=== PATIENT | male | born 1960 | race Caucasian/White ===

== ENCOUNTER → 2016-11-12 | Outpatient (CLI) | payer BC ==
[~2016-11-12] VITALS: Ht 177.8 cm; Wt 127.0 kg
[~2016-11-12] MED LIST: /CELE20CA; /TAMS4CA; ALL10TAB27 PO; ANEXIA; ASPI81TA85 PO; BABY81CH; CALC500T36 PO; CETI10TA; CVS20TAB PO; JANUMET; LIDOCAINE 2% INJ 100 MG/5 ML SDV (FOR ANES.) As Ordered ONE; MELO7.5T6 PO; NS 1,000 ML IV SCH; PROPOFOL 200 MG/20 ML VIAL As Ordered ONE; REMICAID; SIMV40TA2; TEST5GEL TOP; THERGRAN; VICO5TAB; VITA2000 PO; VITA250L PO; ZOCO20TA PO; ZYLO300T4 PO; cipro
--- NOTE | 2016-11-12 11:51 | ROOR ---
Patient Name: Hector Ruiz Procedure Date: 11/12/2016 11:38 AM Date of : 1960 Age: 56 Room: [facility] Gender: Male Note Status: Finalized Procedure: Upper GI endoscopy Indications: Heartburn Providers: Ronal Rosenberg MD Referring MD: Zoie Howard NP Requesting Provider: Medicines: Monitored Anesthesia Care Complications: No immediate complications. Procedure: Pre-Anesthesia Assessment: - The heart rate, respiratory rate, oxygen saturations, blood pressure, adequacy of pulmonary ventilation, and response to care were monitored throughout the procedure. The Endoscope was introduced through the mouth, and advanced to the second part of duodenum. The upper GI endoscopy was accomplished without difficulty. The patient tolerated the procedure well. Findings: The Z-line was regular and was found 45 cm from the incisors. Evidence of a gastric bypass was found. A gastric pouch with a medium size was found. The staple line appeared intact. The gastrojejunal anastomosis was characterized by healthy appearing mucosa. The exam was otherwise without abnormality. Impression: - Z-line regular, 45 cm from the incisors. - Gastric bypass with a medium-sized pouch and intact staple line. Gastrojejunal anastomosis characterized by healthy appearing mucosa. - The examination was otherwise normal. - No specimens collected. - The examination was otherwise normal. Recommendation: - Patient has a contact number available for emergencies. The signs and symptoms of potential delayed complications were discussed with the patient. Return to normal activities tomorrow. Written discharge instructions were provided to the patient. - Resume previous diet. - Discharge patient to home. - Continue present medications. - Return to referring physician. - The findings and recommendations were discussed with the patient's family. Ronal Rosenberg MD Ronal Rosenberg MD 11/12/2016 11:50:48 AM This report has been signed electronically. Number of Addenda: 0 Note Initiated On: 11/12/2016 11:38 AM Estimated Blood Loss: Estimated blood loss: none.
--- NOTE | 2016-11-12 12:05 | ROOR ---
Patient Name: Hector Ruiz Procedure Date: 11/12/2016 11:38 AM Date of : 1960 Age: 56 Room: [facility] Gender: Male Note Status: Finalized Procedure: Colonoscopy to Cecum Indications: High risk colon cancer surveillance: Personal history of colonic polyps, Last colonoscopy: 2013 Providers: Ronal Rosenberg MD Referring MD: Zoie Howard NP Requesting Provider: Medicines: Monitored Anesthesia Care Complications: No immediate complications. Procedure: Pre-Anesthesia Assessment: - The heart rate, respiratory rate, oxygen saturations, blood pressure, adequacy of pulmonary ventilation, and response to care were monitored throughout the procedure. The Colonoscope was introduced through the anus and advanced to the cecum, identified by appendiceal orifice and ileocecal valve. The colonoscopy was performed without difficulty. The patient tolerated the procedure well. The quality of the bowel preparation was good. Findings: The perianal and digital rectal examinations were normal. Non-bleeding internal hemorrhoids were found during retroflexion. The hemorrhoids were small and Grade I (internal hemorrhoids that do not prolapse). No other significant abnormalities were identified in a careful examination of the remainder of the colon. The exam was otherwise without abnormality on direct and retroflexion views. Impression: - Non-bleeding internal hemorrhoids. - The examination was otherwise normal on direct and retroflexion views. - No specimens collected. - The exam was otherwise normal to the cecum. Recommendation: - Discharge patient to home. - High fiber diet. - Continue present medications. - Return to referring physician. - Repeat colonoscopy in 5 years for surveillance. - The findings and recommendations were discussed with the patient's family. Ronal Rosenberg MD Roanl Rosenberg MD 11/12/2016 12:05:30 PM This report has been signed electronically. Number of Addenda: 0 Note Initiated On: 11/12/2016 11:38 AM Estimated Blood Loss: Estimated blood loss: none.
[2016-11-12 12:30] VITALS: BP 146/96
== END | disposition home or self-care (01) ==
LOC: M OPP 09:59
PROVIDERS: ATTEND Internal Medicine Gastroenterology
DX: Z12.11 Encounter for screening for malignant neoplasm of colon (principal); K64.0 First degree hemorrhoids; Z86.010 Personal history of colon polyps; R07.89 Other chest pain; R12 Heartburn; Z98.84 Bariatric surgery status; E78.5 Hyperlipidemia, unspecified; E11.9 Type 2 diabetes mellitus without complications; M19.90 Unspecified osteoarthritis, unspecified site; R06.83 Snoring; G47.30 Sleep apnea, unspecified; M45.9 Ankylosing spondylitis of unspecified sites in spine; Z91.048 Other nonmedicinal substance allergy status; Z87.891 Personal history of nicotine dependence; Z79.82 Long term (current) use of aspirin; Z79.899 Other long term (current) drug therapy
CPT/HCPCS: 43235; 99156; 99157; G0105

== ENCOUNTER 2017-01-05 05:24 | Emergency (ER) | payer BC ==
[~2017-01-05] VITALS: Ht 177.8 cm; Wt 139.7 kg
[~2017-01-05 05:24] MED LIST changes: -LIDOCAINE 2% INJ 100 MG/5 ML SDV (FOR ANES.) As Ordered ONE; -NS 1,000 ML IV SCH; -PROPOFOL 200 MG/20 ML VIAL As Ordered ONE
[2017-01-05] MEDS ORDERED: NS 1,000 ML IV ONE (06:15)
[2017-01-05] MEDS ORDERED: MORPHINE 4 MG/ML 1ML SYRINGE IV PRN (06:15)
[2017-01-05] MEDS ORDERED: ONDANSETRON 4MG/2ML VIAL (J2405) IV ONE (06:15)
[2017-01-05 06:21] LABS: BASO % 0.2 % (0.0-1.0); EOS # 0.1 K/mm3 (0.0-0.50); EOS % 1.7 % (0.0-3.0); LARGE UNSTAINED CELL # 0.2 K/mm3 (0.0-0.4); LARGE UNSTAINED CELL % 2.6 % (0.0-4.0); LYMPH # 2.6 K/mm3 (1.5-4.5); LYMPH % 30.4 % (24.0-44.0); MEAN CORPUSCULAR HEMOGLOBIN 33.6 pg (27.0-33.0); MEAN CORPUSCULAR HGB CONC 34.6 g/dl (32.0-36.5); MEAN CORPUSCULAR VOLUME 97.1 fl (80.0-96.0); MONO # 0.4 K/mm3 (0.0-0.8); MONO % 4.7 % (0.0-5.0); NEUTROPHILS # 5.2 K/mm3 (1.8-7.7); NEUTROPHILS % 60.4 % (36.0-66.0); PLATELET COUNT, AUTOMATED 188 k/mm3 (150-450); RED CELL DISTRIBUTION WIDTH 12.3 % (11.5-14.5); WHITE BLOOD COUNT 8.5 K/mm3 (4.0-10.0)
[2017-01-05] MEDS ORDERED: KETOROLAC 30 MG/ML VIAL (J1885) IV ONE (06:30)
[2017-01-05 06:36] LABS: ALBUMIN 4.2 GM/DL (3.2-5.2); ALBUMIN/GLOBULIN RATIO 1.24 (1.00-1.93); BILIRUBIN,DIRECT 0.4 MG/DL (0.0-0.2); BILIRUBIN,TOTAL 1.5 MG/DL (0.2-1.0); CALCIUM LEVEL 9.3 MG/DL (8.5-10.1); CREATININE FOR GFR 1.59 MG/DL (0.70-1.30); GLOMERULAR FILTRATION RATE 48.5 (>56); POTASSIUM SERUM 4.7 MEQ/L (3.5-5.1); TOTAL PROTEIN 7.6 GM/DL (6.4-8.2)
--- NOTE | 2017-01-05 07:00 | REPUSA ---
CLINICAL HISTORY: Abdominal pain. TECHNIQUE: Multiple axial, sagittal and coronal CT images were obtained through the abdomen and pelvi s without administration of oral or IV contrast material. COMMENTS: The liver is moderately enlarged with decreased attenuation without mass or defect. There is no intra or extrahepatic biliary ductal dilatation. The spleen is normal. The gallbladder is within normal li mits. The pancreas is of normal contour and attenuation characteristics. There is no evidence of adre nal mass. 4.2 mm obstructing stone of the most distal aspect of the distal third of the right ureter. Mild righ t hydroureteronephrosis. No renal or left ureteral calculi are identified. There is no left hydroureter or hydronephrosis. There is no evidence for appendicitis. There is no bowel wall thickening. No evidence for small or la rge bowel obstruction. There is no evidence of abdominal ascites or lymphadenopathy. There is no evidence of intrinsic or extrinsic bladder mass. There is no pelvic ascites or lymphadeno luz marina. Changes from prior gastric bypass surgery. Moderate large bowel fecal stasis. Mild prostatomegaly. Images of the lung bases show no evidence of pleural or parenchymal mass. There are no pleural effusi ons. The bony structures are free of lytic or blastic lesions. Multilevel degenerative changes are seen in volving the thoracolumbar spine. Scattered calcifications are seen involving the aorta and major branches compatible with atherosclero sis. Bilateral fat containing inguinal hernias without incarceration. IMPRESSION: Obstructing stone of the distal right ureter. Large bowel fecal stasis. Hepatomegaly with fatty liver infiltration. Gastric bypass surgery. Thank you for your kind referral of this patient.
[2017-01-05] MEDS ORDERED: DULC5TAB PO (07:25)
[2017-01-05] MEDS ORDERED: FLOM5CAP PO (07:25)
[2017-01-05] MEDS ORDERED: PERC5TAB6 PO (07:25)
[2017-01-05 07:33] VITALS: BP 175/81
== END 2017-01-05 07:35 | disposition home or self-care (01) ==
LOC: M ED 07:30
DX: N20.1 Calculus of ureter (principal); K59.00 Constipation, unspecified; E11.9 Type 2 diabetes mellitus without complications; E66.9 Obesity, unspecified; Z98.84 Bariatric surgery status; Z87.442 Personal history of urinary calculi; Z87.891 Personal history of nicotine dependence; Z91.09 Other allergy status, other than to drugs and biological substances; Z79.899 Other long term (current) drug therapy; Z79.82 Long term (current) use of aspirin
CPT/HCPCS: 74176; 80048; 80076; 81001; 83690; 85025; 87086; 96374; 96375; 99283; J1885; J2405

== ENCOUNTER 2017-01-09 08:13 | Emergency (ER) | payer BC ==
[~2017-01-09] VITALS: Ht 177.8 cm; Wt 139.3 kg
[~2017-01-09 08:13] MED LIST changes: +DULC5TAB PO; +FLOM5CAP PO; +PERC5TAB6 PO
[2017-01-09] MEDS ORDERED: ONDANSETRON 4MG/2ML VIAL (J2405) IV ONE (08:45)
[2017-01-09] MEDS ORDERED: MORPHINE 2 MG/ML 1ML SYRINGE IV ONE (08:45)
[2017-01-09] MEDS ORDERED: KETOROLAC 30 MG/ML VIAL (J1885) IV ONE (08:45)
[2017-01-09] MEDS ORDERED: TAMSULOSIN 0.4 MG CAP PO ONE (08:45)
[2017-01-09 09:43] VITALS: BP 173/82
[2017-01-09] MEDS ORDERED: INDO25CA PO (09:44)
--- NOTE | 2017-01-09 10:43 | REP ---
URINARY TRACT SONOGRAPHY: HISTORY: Right flank pain, history stone, please assess hydronephrosis. Comparison CT study 01/05/2017. CT study showed a right distal ureteral calculus with mild right-sided hydronephrosis. SONOGRAPHIC FINDINGS: Scanning at the level of the urine-filled bladder shows no bladder wall mass. Emptying ureteral jets could not be confirmed on either side with color Doppler interrogation of the bladder lumen. This may relate to hydration state. Prostate appears prominent measuring 3.9 x 5.2 x 3.4 cm. Renal cortical echogenicity pattern is normal and contours are smooth on both sides. The right kidney dimensions are 13.7 x 6.3 x 6.1 cm. Left kidney measures 12.6 x 5.7 x 5.4 cm. There is no evidence of hydronephrosis on the left. No cyst, mass, or renal calculus is seen on either side. On the right, there is localized mild separation of central renal sinus echoes in the upper pole of the right kidney consistent with focal intrarenal dilation of the infundibulum and calyceal system. This is improved when compared with the CT study which shows mild hydronephrosis of the entire collecting system and renal pelvis. No other abnormality. IMPRESSION: There is minimal intrarenal separation of upper pole renal sinus echoes, consistent with improvement in the previously noted right-sided hydronephrosis. No stones seen. Left kidney remains unremarkable. Signed by Parish Brown MD 01/09/2017 01:39 P
== END 2017-01-09 09:57 | disposition home or self-care (01) ==
LOC: M ED 09:13
DX: N20.1 Calculus of ureter (principal); E11.9 Type 2 diabetes mellitus without complications; M45.9 Ankylosing spondylitis of unspecified sites in spine; Z91.09 Other allergy status, other than to drugs and biological substances; Z79.899 Other long term (current) drug therapy
CPT/HCPCS: 76775; 96374; 96375; 99283; J1885; J2405

== ENCOUNTER → 2017-01-17 | Outpatient (REF) | payer BC ==
[~2017-01-17] MED LIST changes: +INDO25CA PO
== END ==
LOC: M SMT 13:12
PROVIDERS: ATTEND Nurse Practitioner Family
DX: N20.0 Calculus of kidney (principal)

== ENCOUNTER → 2017-03-06 | Outpatient (REF) | payer BC ==
[2017-03-06 13:13] LABS: IONIZED CALCIUM 4.7 MG/DL (4.5-5.3)
[2017-03-06 13:36] LABS: ANION GAP 4 MEQ/L (8-16); BLOOD UREA NITROGEN 19 MG/DL (7-18); CALCIUM LEVEL 8.9 MG/DL (8.5-10.1); CARBON DIOXIDE LEVEL 30 MEQ/L (21-32); CHLORIDE LEVEL 103 MEQ/L (98-107); CREATININE FOR GFR 1.02 MG/DL (0.70-1.30); GLOMERULAR FILTRATION RATE > 60.0 (>56); GLUCOSE, FASTING 170 MG/DL (70-105); MAGNESIUM LEVEL 2.1 MG/DL (1.8-2.4); PHOSPHORUS LEVEL 2.6 MG/DL (2.5-4.9); POTASSIUM SERUM 4.5 MEQ/L (3.5-5.1); SODIUM LEVEL 137 MEQ/L (136-145); URIC ACID 3.8 MG/DL (3.5-7.2)
== END ==
LOC: M LABSMT 09:51
PROVIDERS: ATTEND Nurse Practitioner Family
DX: N20.0 Calculus of kidney (principal)

== ENCOUNTER → 2017-07-01 | Outpatient (REF) | payer BC ==
[~2017-07-01] MED LIST changes: +ANDR1.62 TD; +CALC250T PO; +CIPRODEX AD; +DOXY-278 PO; +INFL10VL IV; +LEVO500T3 PO; +LISI10TA4 PO; -MELO7.5T6 PO; +MELO7.5T7 PO; +PERC5TAB12 PO; -PERC5TAB6 PO; -THERGRAN; +THERGRAN PO
== END ==
LOC: M LAB REF 12:57
PROVIDERS: ATTEND Nurse Practitioner Adult Health
DX: E29.1 Testicular hypofunction (principal)

== ENCOUNTER → 2017-07-08 | Outpatient (REF) | payer BC | LOC: M LAB REF 12:52 | PROVIDERS: ATTEND Nurse Practitioner Family | DX: L03.211 Cellulitis of face (principal) ==

== ENCOUNTER 2017-07-10 09:20 | Inpatient (IN) | payer BC ==
[~2017-07-10] VITALS: Ht 177.8 cm; Wt 142.8 kg
[~2017-07-10 09:20] MED LIST changes: -ANDR1.62 TD; -CALC250T PO; -CIPRODEX AD; -DOXY-278 PO; -INFL10VL IV; -LEVO500T3 PO; -LISI10TA4 PO
[2017-07-10] MEDS ORDERED: LISI10TA4 PO (09:44)
[2017-07-10 10:50] LABS: BASO % 0.4 % (0.0-1.0); EOS # 0.1 10^3/uL (0.0-0.50); EOS % 1.3 % (0.0-3.0); IMMATURE GRANULOCYTE % 0.4 % (0-0); LYMPH # 2.2 10^3/uL (1.5-4.5); LYMPH % 26.1 % (24.0-44.0); MEAN CORPUSCULAR HEMOGLOBIN 33.1 pg (27.0-33.0); MEAN CORPUSCULAR HGB CONC 35.6 g/dl (32.0-36.5); MONO # 1.2 10^3/uL (0.0-0.8); MONO % 14.7 % (0.0-5.0); NEUTROPHILS # 4.7 10^3/uL (1.8-7.7); NEUTROPHILS % 57.1 % (36.0-66.0); PLATELET COUNT, AUTOMATED 162 10^3/uL (150-450); RED CELL DISTRIBUTION WIDTH 11.9 % (11.5-14.5); WHITE BLOOD COUNT 8.3 10^3/uL (4.0-10.0)
[2017-07-10 11:11] LABS: ANION GAP 5 MEQ/L (8-16); BLOOD UREA NITROGEN 19 MG/DL (7-18); CALCIUM LEVEL 8.8 MG/DL (8.5-10.1); CARBON DIOXIDE LEVEL 31 MEQ/L (21-32); CHLORIDE LEVEL 102 MEQ/L (98-107); CREATININE FOR GFR 1.11 MG/DL (0.70-1.30); GLOMERULAR FILTRATION RATE > 60.0 (>56); GLUCOSE, FASTING 103 MG/DL (70-105); POTASSIUM SERUM 4.3 MEQ/L (3.5-5.1); SODIUM LEVEL 138 MEQ/L (136-145)
[2017-07-10] MEDS ORDERED: ISOVUE-370 76% 100ML VIAL (Q9967) As Ordered ONE (11:41)
--- NOTE | 2017-07-10 12:23 | REP ---
CT NECK WITH CONTRAST: HISTORY: Right parotiditis. CONTRAST: Isovue 370, 75 mL. A BB was placed on the right side of the head at the level of the temporal bone. The naso-, frida-, and hypopharynx, larynx and subglottic trachea are normal in appearance. The salivary and thyroid glands are normal in size and density. Small lymph nodes less than 1 cm in size are present in the internal jugular chains, posterior triangles submandibular and submental areas. There is enlargement of the right pinna. The right pinna is heterogeneous in density. There is extension of the pinna enlargement into the distal right external auditory canal. Stranding is present in the overlying subcutaneous tissue. There is thickening of the right platysma muscle. These findings are consistent with edema. There is no abscess. Atherosclerotic calcification is present at the right carotid bifurcation. A minimal degree of degenerative change is present in the cervical spine. The lung apices are clear. The sinuses and mastoid air cells are clear. IMPRESSION: There is enlargement of the right pinna consistent with cellulitis. Signed by Jake Ernandez MD 07/10/2017 12:26 P
[2017-07-10] MEDS ORDERED: INFL10VL IV (13:16)
[2017-07-10] MEDS ORDERED: ANDR1.62 TD (13:21)
[2017-07-10] MEDS ORDERED: CALC250T PO (13:21)
[2017-07-10] MEDS ORDERED: ONDANSETRON 4MG/2ML VIAL (J2405) IV PRN (13:30)
[2017-07-10] MEDS ORDERED: PERCOCET 5MG/325MG TAB PO PRN (13:30)
[2017-07-10] MEDS ORDERED: ACETAMINOPHEN TAB 650MG DOSE (2X325MG) PO PRN (13:30)
--- NOTE | 2017-07-10 14:01 | HPEPDOC ---
[facility] Medical History & Physical Date of Admission Jul 10, 2017 History and Physical PRIMARY CARE PROVIDER: Dr. Ortiz ATTENDING: Dr. Gayathri Velásquez CHIEF COMPLAINT: Ear/neck pain HISTORY OF PRESENT ILLNESS: This is a 57-year-old male past history ankylosing spondylitis on Remicade for the past 15 years, gastric bypass, hypertension, hyperlipidemia, GERD who presents with right ear and neck pain. Patient states he started to have right neck pain on Saturday, went to his primary care physician on Saturday, prescribed Keflex which she took for 1 day, as directed he went to the urgent care center as he did not have any significant improvements then prescribed clindamycin for which she's on the second day now. Patient states his external ear is now swollen and painful. He has no changes in his hearing, swallowing, eating. Patient denies any trauma to the ER neck. Patient notes that there was a blister with clear fluid at the distal region of his pinna, which was sent for culture by his primary care physician today. He does note fevers at home with a MAXIMUM TEMPERATURE of 101. No chills. No chest pain/shortness of breath/palpitations. No nausea/vomiting/abdominal pain. No diarrhea. No rashes. PAST MEDICAL HISTORY: As per HPI PAST SURGICAL HISTORY: Gastric bypass, tonsillectomy SOCIAL HISTORY: History of tobacco abuse quit years ago. Occasional alcohol. 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 No illicit drugs. FAMILY HISTORY: Brother and nephew with Crohn's disease ALLERGIES: Please see below. REVIEW OF SYSTEMS: HEENT: Denies sore throat/headache. Has right ear and right neck pain CARDIOVASCULAR: Denies chest pain/palpitations RESPIRATORY: Denies shortness of breath/cough GASTROINTESTINAL: denies nausea/vomiting GENITOURINARY: Denies dysuria/urinary urgency. MUSCULOSKELETAL: Denies myalgias/arthralgias NEUROLOGICAL: Denies any focal weakness HOME MEDICATIONS: Please see below. PHYSICAL EXAMINATION: Vitals: (see below) General: No acute distress, laying comfortably in bed. HEENT: Moist mucous membranes. Swelling and tenderness of the pinna, with prior blister that's the distal end of the pinna. Neck: No JVD. Right cervical lymphadenopathy, tender. No abscess. No induration. Cardiac: RRR, No murmurs Pulm: Clear to auscultation b/l. No wheezing, rhonchi Abd: NT/ND + BS. Obese Ext: No edema or cyanosis. LABORATORY DATA: See below. IMAGING: CT neck on 07/10/17 A BB was placed on the right side of the head at the level of the temporal bone. The naso-, frida-, and hypopharynx, larynx and subglottic trachea are normal in appearance. The salivary and thyroid glands are normal in size and density. Small lymph nodes less than 1 cm in size are present in the internal jugular chains, posterior triangles submandibular and submental areas. There is enlargement of the right pinna. The right pinna is heterogeneous in density. There is extension of the pinna enlargement into the distal right external auditory canal. Stranding is present in the overlying subcutaneous tissue. There is thickening of the right platysma muscle. These findings are consistent with edema. There is no abscess. Atherosclerotic calcification is present at the right carotid bifurcation. A minimal degree of degenerative change is present in the cervical spine. The lung apices are clear. The sinuses and mastoid air cells are clear. IMPRESSION: There is enlargement of the right pinna consistent with cellulitis. MICROBIOLOGY: Please see below. ASSESSMENT/PLAN: 1. Cellulitis of the right pinna, with lymphadenopathy- has been progressive since Saturday. Status post Bactrim and clindamycin. He does have a high risk of pseudomonas infection given his immunocompromised state. Has fevers at home. Afebrile in the ED. No leukocytosis. We'll trend CRP/ESR. ED to contact ENT. Started on Zosyn/vanco. Blood culture sent. Consider ID infectious disease consult if no improvement by tomorrow. 2. Ankylosing spondylitis- we'll hold Remicade for now. 3. History of hypertension- continue lisinopril 4. History of GERD- on PPI 5. History of hyperlipidemia- on statin Due to prophylaxis- enoxaparin Patient will follow-up by Dr. Gayathri Velásquez starting 07/11/17 at 7am. Vital Signs Vital Signs Date Time Temp Pulse Resp B/P (MAP) Pulse Ox O2 Delivery O2 Flow Rate FiO2 07/10/17 10:52 07/10/17 09:20 97.0 63 16 96 Room Air Laboratory Data Labs 24H Laboratory Tests 2 07/10/17 10:29: Anion Gap 5L, Glomerular Filtration Rate > 60.0, Blood Urea Nitrogen 19H, Creatinine 1.11, Sodium Level 138, Potassium Level 4.3, Chloride Level 102, Carbon Dioxide Level 31, Calcium Level 8.8 07/10/17 10:44: Immature Granulocyte % (Auto) 0.4H, White Blood Count 8.3, Red Blood Count 4.89 , Hemoglobin 16.2, Hematocrit 45.5, Mean Corpuscular Volume 93.0, Mean Corpuscular Hemoglobin 33.1H, Mean Corpuscular Hemoglobin Concent 35.6, Red Cell Distribution Width 11.9, Platelet Count 162, Neutrophils (%) (Auto) 57.1, Lymphocytes (%) (Auto) 26.1, Monocytes (%) (Auto) 14.7H, Eosinophils (%) (Auto) 1.3, Basophils (%) (Auto) 0.4, Neutrophils # (Auto) 4.7, Lymphocytes # (Auto) 2.2, Monocytes # (Auto) 1.2H, Eosinophils # (Auto) 0.1, Basophils # (Auto) 0.0, Immature Granulocyte # (Auto) 0.0, Nucleated Red Blood Cells % (auto) 0.0 CBC/BMP Laboratory Tests 07/10/17 10:29 Calcium Level 8.8 07/10/17 10:44 Red Blood Count 4.89, Mean Corpuscular Volume 93.0, Mean Corpuscular Hemoglobin 33.1 H, Mean Corpuscular Hemoglobin Concent 35.6, Red Cell Distribution Width 11.9, Neutrophils (%) (Auto) 57.1, Lymphocytes (%) (Auto) 26.1, Monocytes (%) ( Auto) 14.7 H, Eosinophils (%) (Auto) 1.3, Basophils (%) (Auto) 0.4, Neutrophils # (Auto) 4.7, Lymphocytes # (Auto) 2.2, Monocytes # (Auto) 1.2 H, Eosinophils # (Auto) 0.1, Basophils # (Auto) 0.0 Microbiology Microbiology 07/10/17 Blood Culture, Received Pending 07/10/17 Blood Culture, Received Pending Home Medications Scheduled (Androgel Pump) 1.62 % Gel, 2 DOSE TD DAILY 1 PUMP APPLIED TO EACH SHOULDER Aspirin (Aspir-81) 81 Mg Tab, 81 MG PO DAILY Calcium Citrate (Calcium Citrate) 250 Mg Tab, 500 MG PO TID Cetirizine HCl (All Day Allergy) 10 Mg Tab, 10 MG PO DAILY Cholecalciferol (Vitamin D3) 2,000 Unit Cap, 2,000 UNIT PO DAILY Cyanocobalamin (Vitamin B 12) 250 Mcg Aneta, 500 MCG PO DAILY Infliximab Injection (Remicade) Unknown Strength Vial, Unknown Dose IV ASDIRECTED EVERY 8 WEEKS Lisinopril (Lisinopril) 10 Mg Tab, 10 MG PO DAILY Meloxicam (Meloxicam) 7.5 Mg Tab, 7.5 MG PO BID Multivitamins (Theragran) 1 Tab Tab, 1 TAB PO BID Omeprazole (Cvs Omeprazole) 20 Mg Tab, 20 MG PO DAILY Simvastatin (Zocor) 20 Mg Tab, 20 MG PO QHS Allergies Coded Allergies: Nickel (Verified Allergy, Intermediate, RASH, 12/25/12) TAPE (Verified Allergy, Unknown, 01/09/17) IRASEMA FLORES MD Jul 10, 2017 14:00
[2017-07-10 15:10] VITALS: BP 143/72
[2017-07-10] MEDS: ENOXAPARIN 40 MG/0.4 ML SYRINGE (J1650) SC SCH (15:31)
[2017-07-10] MEDS: PIPERACILLIN/TAZOBACTAM SOD 3.375 GM in D5W 50 ML IV SCH ×2 (15:31→19:58)
[2017-07-10] MEDS ORDERED: VANCOMYCIN HCL 1,000 MG, VIAL MATE ADAPTER 1 EACH in D5W 250 ML IV ONE (16:00)
[2017-07-10 20:00] VITALS: BP 153/75
--- NOTE | 2017-07-10 20:31 | PHACANCOPD ---
PHARMACY VANCOMYCIN DOSING Pt Demographics Demographics Patient Age:57 , Weight:140.910 , Gender: male Adjusted Body Weight Date: 07/10/17, Adjusted Body Weight: [100] Kg Events Past 24 Hours Events Past 24 Hours: NO: Dialysis, Diuretic Therapy, Change in CrCl, Fever, Elevation in WBC, Pending Diagnostics, Pending Procedures, Other Vancomycin Vancomycin indication: cellulitis right pinna/neck Vancomycin Target Ranges: 15-20 mcg/ml Vancomycin Load Y/N: Yes Load Dose Date Time Vancomycin Load Dose: 1000mg Date: 07/10 Time: 17:00, 21:00 Vancomycin Dose Date: 07/10/17. Current Vancomycin Dose: [1g IV q8h @21] Intermittent Dosing?: No Labs Labs Item Value Date Time White Blood Count 8.3 10^3/uL 07/10/17 1044 Erythrocyte Sedimentation Rate 31 mm/hr H 07/10/17 1431 Creatinine 1.11 MG/DL 07/10/17 1029 C-Reactive Protein, Quantitative 4.11 MG/DL H 07/10/17 1029 Micro Microbiology 07/10/17 Blood Culture, Received Pending 07/10/17 Blood Culture, Received Pending Creatinine Clearance Date:07/10/17. Creatinine Clearance: [>100 ml/min using adjusted BW]. Pending Labs Vanco trough scheduled 07/12 @04:00 Assessment and Plan Maintaining Current Dose?: Yes Reason for dose change: No Dose Change Pharmacist Note Pharmacist Note Date: 07/10/17. Pharmacist note: pt has been admitted for cellulitis of the right pinna/neck area and has been started on Zosyn and Vanco. ENT has been consulted. Of note, pt is also on remicade. His SCr appears to be at baseline, his micro culture history is unremarkable and he has not been on vancomycin at our facility in the past. I have started him on vancomycin 1g this evening followed by 1g IV q8h 4 hours later. I have a vanco trough scheduled before the 5th dose. We will continue to monitor and make adjustments as necessary. Leandro Yu Pharm.D. Jul 10, 2017 20:31
[2017-07-10] MEDS: SIMVASTATIN 20 MG TAB PO SCH (21:06)
[2017-07-10] MEDS: MELOXICAM (MOBIC) 7.5 MG TAB PO SCH (21:06)
[2017-07-10] MEDS: CIPRODEX OTIC SUSP 7.5ML AD SCH (21:06)
[2017-07-10] MEDS: VANCOMYCIN HCL 1,000 MG, VIAL MATE ADAPTER 1 EACH in D5W 250 ML IV SCH (21:06)
[2017-07-11] VITALS: BP 150/65
[2017-07-11] MEDS: PIPERACILLIN/TAZOBACTAM SOD 3.375 GM in D5W 50 ML IV SCH ×4 (01:55→19:54)
[2017-07-11 04:00] VITALS: BP 113/85
[2017-07-11] MEDS: VANCOMYCIN HCL 1,000 MG, VIAL MATE ADAPTER 1 EACH in D5W 250 ML IV SCH ×3 (04:53→21:06)
[2017-07-11 07:17] LABS: BASO % 0.3 % (0.0-1.0); EOS # 0.2 10^3/uL (0.0-0.50); EOS % 3.4 % (0.0-3.0); IMMATURE GRANULOCYTE % 0.5 % (0-0); LYMPH # 2.2 10^3/uL (1.5-4.5); LYMPH % 36.7 % (24.0-44.0); MEAN CORPUSCULAR HGB CONC 34.7 g/dl (32.0-36.5); MEAN CORPUSCULAR VOLUME 95.1 fl (80.0-96.0); MONO # 0.8 10^3/uL (0.0-0.8); MONO % 13.9 % (0.0-5.0); NEUTROPHILS # 2.7 10^3/uL (1.8-7.7); NEUTROPHILS % 45.2 % (36.0-66.0); PLATELET COUNT, AUTOMATED 163 10^3/uL (150-450); WHITE BLOOD COUNT 5.9 10^3/uL (4.0-10.0)
[2017-07-11 07:37] LABS: ANION GAP 5 MEQ/L (8-16); BLOOD UREA NITROGEN 19 MG/DL (7-18); CARBON DIOXIDE LEVEL 29 MEQ/L (21-32); CHLORIDE LEVEL 106 MEQ/L (98-107); CREATININE FOR GFR 1.11 MG/DL (0.70-1.30); GLOMERULAR FILTRATION RATE > 60.0 (>56); GLUCOSE, FASTING 158 MG/DL (70-105); POTASSIUM SERUM 4.5 MEQ/L (3.5-5.1); SODIUM LEVEL 140 MEQ/L (136-145)
[2017-07-11 08:00] VITALS: BP 145/80
[2017-07-11 08:12] LABS: ERYTHROCYTE SEDIMENTATION RATE 29 mm/hr (0-20)
[2017-07-11] MEDS: OMEPRAZOLE 20 MG CAP PO SCH (08:40)
[2017-07-11] MEDS: VITAMIN D 1,000 INTERNATIONAL UNITS TABLET PO SCH (08:40)
[2017-07-11] MEDS: MELOXICAM (MOBIC) 7.5 MG TAB PO SCH ×2 (08:40→21:07)
[2017-07-11] MEDS: CETIRIZINE (ZyrTEC) 10 MG TAB PO SCH (08:40)
[2017-07-11] MEDS: ENOXAPARIN 40 MG/0.4 ML SYRINGE (J1650) SC SCH (08:41)
[2017-07-11] MEDS: LISINOPRIL 10 MG TAB PO SCH (08:41)
[2017-07-11] MEDS: ASPIRIN 81 MG ENTERIC TAB PO SCH (08:41)
[2017-07-11] MEDS: CIPRODEX OTIC SUSP 7.5ML AD SCH ×2 (08:42→21:07)
[2017-07-11] MEDS: CYANOCOBALAMIN 250 MCG TABLET PO SCH (09:25)
[2017-07-11 12:00] VITALS: BP 138/78
--- NOTE | 2017-07-11 13:27 | IPN ---
DATE OF EXAM: 07/11/2017 SUBJECTIVE: The patient tells me that he had been on Remicade for the past 15 years and he admitting to having pain on the right side of his ear and his neck. He saw his primary care physician on Saturday, prescribed Keflex, taken for 1 day but went to urgent care since he did not have any improvement. They prescribed clindamycin, which he was on 2 days, however the swelling began to worsen to the point where he presented to the hospital. The patient tells me that this morning with the antibiotics he is receiving in the emergency room he is noticing significant improvement in his symptoms. He tells me that it appears to be less red and less swollen. He denies fever, chills, nausea, vomiting or diarrhea. OBJECTIVE: VITAL SIGNS: Temperature 97.5, pulse 64, respiratory rate 18, blood pressure (BP) 145/80, oxygen saturation 94% on room air. GENERAL: He is an morbidly obese man sitting up in bed. He does not appear to be in acute distress. HEENT: He has a large neck. He is somewhat disheveled. He has right ear pinna that is grossly erythematous, visibly swollen and tender. There appears to be some superficial crusting. No obvious discharge. Examination of his external auditory canal does reveal some swelling. However, no abnormalities in the ear drum. He does have some mild cervical lymphadenopathy associated on the right. No stridor. No neck masses. Trachea is midline. Good air movement. CARDIOVASCULAR EXAM: S1, S2, regular. RESPIRATORY EXAM: Is clear. ABDOMINAL EXAM: Is grossly obese. EXTREMITIES: No clubbing, cyanosis or edema. LABORATORY STUDIES: WBC 5.9, hemoglobin 14.8, platelet count 153. ESR 29. Chemistry panel: Sodium 140, potassium 4.5, chloride 106, bicarbonate 29, BUN 19, creatinine 1.1. CRP 2.9, MICROBIOLOGY: Blood cultures are negative thus far. The patient did have a CT scan of the neck, which revealed enlarged right panni consistent with cellulitis. ASSESSMENT AND PLAN: 1. This is a 57-year-old man with cellulitis. He remains on empiric antibiotics with vancomycin and Zosyn. I will check MRSA screen of the nares and hopefully we can be able to a narrow spectrum. He has been seen by ENT, although I do not have a note available at this time. He has been started on ciprofloxacin otic drops. He is having some improvement in his symptoms. However, it has been less than 24 hours of his antibiotic regimen. I will watch him for an additional 24 hours to see if it is improving, which I believe it is. He is on Tylenol as needed. He has not had any fevers or leukocytosis. He does not appear to be grossly septic. 2. Ankylosing spondylitis. We will hold off Remicade. Otherwise, he is at his functional baseline. The patient is on Mobic. 3. Seasonal allergies. Continue with Zyrtec. 4. B12 deficiency. Continue with supplementation. 5. Hypertension. Continue with lisinopril. His blood pressure is controlled. 6. Gastroesophageal reflux disease. Continue with omeprazole. 7. Dyslipidemia. The patient is on Zocor. 8. Deep venous thrombosis (DVT) prophylaxis. The patient is on Lovenox. DISPOSITION: Pending improvement, he may be stable for discharge within the next 24-48 hours. Await recommendations from ENT. ZACH
[2017-07-11 16:00] VITALS: BP 138/60
[2017-07-11] MEDS: SIMVASTATIN 20 MG TAB PO SCH (21:07)
[2017-07-11 22:00] VITALS: BP 132/67
[2017-07-12] MEDS: PIPERACILLIN/TAZOBACTAM SOD 3.375 GM in D5W 50 ML IV SCH ×2 (01:55→08:44)
[2017-07-12 02:00] VITALS: BP 118/57
[2017-07-12] MEDS: VANCOMYCIN HCL 1,000 MG, VIAL MATE ADAPTER 1 EACH in D5W 250 ML IV SCH (04:50)
--- NOTE | 2017-07-12 05:07 | PHACANCOPD ---
PHARMACY VANCOMYCIN DOSING Pt Demographics Demographics Patient Age:57 , Weight:140.910 , Gender: male Adjusted Body Weight Date: 07/10/17, Adjusted Body Weight: [100] Kg Vancomycin Vancomycin indication: cellulitis right pinna/neck Vancomycin Target Ranges: 15-20 mcg/ml Vancomycin Load Y/N: Yes Load Dose Date Time Vancomycin Load Dose: 1000mg Date: 07/10 Time: 17:00, 21:00 Vancomycin Dose Date: 07/10/17. Current Vancomycin Dose: [1g IV q8h @21] Intermittent Dosing?: No Labs Micro Microbiology 07/10/17 Blood Culture - Preliminary, Resulted No growth after 24 hours . All specim... 07/10/17 Blood Culture - Preliminary, Resulted No growth after 24 hours . All specim... 07/11/17 MRSA Screen, Received Pending Creatinine Clearance Date:07/10/17. Creatinine Clearance: [>100 ml/min using adjusted BW]. Pending Labs Vanco trough scheduled 07/12 @04:00 =REPORTED 13.2 Assessment and Plan Maintaining Current Dose?: Yes Reason for dose change: No Dose Change Pharmacist Note Pharmacist Note Date: 07/12/17. Pharmacist note:vANCOMYCIN [id number] TODAY REPORTED 13.2.PATIENT CONTINUES ON PIP/TAZO 3.375 GM IV Q6H WELL VANCOMYCIN 1 GRAM IV Q8H.PATIENT CRCL=CALCULATED 106.5(SCR NOT YET POSTED FOR TODAY.-WILL CONTINUE TO FOLLOW Date: 07/10/17. Pharmacist note: pt has been admitted for cellulitis of the right pinna/neck area and has been started on Zosyn and Vanco. ENT has been consulted. Of note, pt is also on remicade. His SCr appears to be at baseline, his micro culture history is unremarkable and he has not been on vancomycin at our facility in the past. I have started him on vancomycin 1g this evening followed by 1g IV q8h 4 hours later. I have a vanco trough scheduled before the 5th dose. We will continue to monitor and make adjustments as necessary. TORRES [facility] Jul 12, 2017 05:07
[2017-07-12 05:44] VITALS: BP 149/84
[2017-07-12 06:01] LABS: BASO % 0.5 % (0.0-1.0); EOS # 0.2 10^3/uL (0.0-0.50); EOS % 4.1 % (0.0-3.0); IMMATURE GRANULOCYTE % 0.4 % (0-0); LYMPH # 2.3 10^3/uL (1.5-4.5); MEAN CORPUSCULAR HEMOGLOBIN 32.7 pg (27.0-33.0); MEAN CORPUSCULAR HGB CONC 34.2 g/dl (32.0-36.5); MEAN CORPUSCULAR VOLUME 95.5 fl (80.0-96.0); MONO # 0.5 10^3/uL (0.0-0.8); MONO % 8.3 % (0.0-5.0); NEUTROPHILS # 2.6 10^3/uL (1.8-7.7); NEUTROPHILS % 46.7 % (36.0-66.0); PLATELET COUNT, AUTOMATED 155 10^3/uL (150-450); WHITE BLOOD COUNT 5.6 10^3/uL (4.0-10.0)
[2017-07-12 06:15] LABS: ANION GAP 5 MEQ/L (8-16); BLOOD UREA NITROGEN 17 MG/DL (7-18); CALCIUM LEVEL 8.1 MG/DL (8.5-10.1); CARBON DIOXIDE LEVEL 29 MEQ/L (21-32); CHLORIDE LEVEL 107 MEQ/L (98-107); CREATININE FOR GFR 1.16 MG/DL (0.70-1.30); GLOMERULAR FILTRATION RATE > 60.0 (>56); GLUCOSE, FASTING 156 MG/DL (70-105); POTASSIUM SERUM 4.8 MEQ/L (3.5-5.1); SODIUM LEVEL 141 MEQ/L (136-145)
[2017-07-12 06:29] LABS: ERYTHROCYTE SEDIMENTATION RATE 29 mm/hr (0-20)
[2017-07-12] MEDS ORDERED: CIPRODEX AD (08:36)
[2017-07-12] MEDS ORDERED: DOXY-278 PO (08:36)
[2017-07-12] MEDS ORDERED: LEVO500T3 PO (08:38)
[2017-07-12] MEDS: CIPRODEX OTIC SUSP 7.5ML AD SCH (08:45)
[2017-07-12] MEDS: CYANOCOBALAMIN 250 MCG TABLET PO SCH (08:45)
[2017-07-12 08:46] VITALS: BP 158/98
[2017-07-12] MEDS: CETIRIZINE (ZyrTEC) 10 MG TAB PO SCH (08:46)
[2017-07-12] MEDS: LISINOPRIL 10 MG TAB PO SCH (08:46)
[2017-07-12] MEDS: OMEPRAZOLE 20 MG CAP PO SCH (08:46)
[2017-07-12] MEDS: ENOXAPARIN 40 MG/0.4 ML SYRINGE (J1650) SC SCH (08:46)
[2017-07-12] MEDS: MELOXICAM (MOBIC) 7.5 MG TAB PO SCH (08:46)
[2017-07-12] MEDS: ASPIRIN 81 MG ENTERIC TAB PO SCH (08:46)
[2017-07-12] MEDS: VITAMIN D 1,000 INTERNATIONAL UNITS TABLET PO SCH (08:46)
[2017-07-12] MEDS ORDERED: ANDROGEL 1.62% TD SCH (09:00)
[2017-07-12] MEDS ORDERED: CALCIUM CITRATE 500 MG PO SCH (09:00)
--- NOTE | 2017-07-12 17:00 | CR ---
DATE OF CONSULTATION: 07/12/2017 REQUESTING PHYSICIAN: Dr. Velásquez. CHIEF COMPLAINT: Pain from the right external ear. HISTORY OF PRESENT ILLNESS: This is a 57-year-old man with history of ankylosing spondylitis on Remicade for the past 15 years presented to the ED with acute onset of pain from the right external ear that started about approximately 3 days ago. Patient denies acute change in hearing, otorrhea, vertigo or facial weakness. He also has some pain from the right periauricular region as well as right jugular digastric area. He has been on Keflex for one day which had no effects on relieving the symptoms. He was also noted to have some blister in the right external auditory canal. PAST MEDICAL HISTORY: Hypertension. Hyperlipidemia. Gastroesophageal reflux disease (GERD). Gastric bypass. Ankylosing spondylitis. PAST SURGICAL HISTORY: Tonsillectomy. Gastric bypass. FAMILY HISTORY: Noncontributory. SOCIAL HISTORY: Ex-smoker for several years. Social uses or alcohol. REVIEW OF SYSTEMS: HEENT: Denies hoarseness or headache. Right upper neck pain and right ear pain. Cardiovascular: Denies chest pain or shortness of breath. Respiratory: denies cough, no shortness of breath. GI: Denies nausea, vomiting or diarrhea. : Denies urinary urgency or dysuria. Musculoskeletal: No myalgia or joint discomfort. Neurologic: No focal weakness or numbness. MEDICATION: Medication list reviewed. Of significance, patient is on Remicade as an immunosuppressant for his ankylosing spondylitis. PHYSICAL EXAMINATION: On examination, patient appeared in no acute distress. No wheezing or stridor noted. Vital signs stable, afebrile. Ear: Entire right pinna erythematous and swollen with some blistering of the skin. No active purulent discharge external auditory canal. Meatus patent. Orthoscopic examination of the right external auditory canal revealed bile erythema with patent canal. A small blister noted on the posterior superior aspect of the canal near the tympanic membrane. The right tympanic membranes appears intact. Left pinna and external auditory canal unremarkable. Face symmetrical motion with no focal weakness. Oral cavity: Moist oral cavity. Tongue mobile with no mucosal lesion. Neck: Tender right jugulodigastric region. Trachea midline. No palpable thyromegaly. IMPRESSION: This is a 57-year-old man who has acute onset of cellulitis involving the right pinna. PLAN: I agree with the treatment of the IV antibiotic including Zosyn and vancomycin. I have ordered the Ciprodex 10 drops to the right external auditory canal twice daily to be used for a total of 10 days. Will follow the patient. MTDD
--- NOTE | 2017-07-12 17:24 | DSES ---
DATE OF ADMISSION: 07/10/2017 DATE OF DISCHARGE: 07/12/2017 DISCHARGE DIAGNOSIS: Cellulitis of the pinna. SECONDARY DIAGNOSES: 1. Ankylosing spondylitis. 2. Seasonal allergies. 3. B12 deficiency. 4. Hypertension. 5. Gastroesophageal reflux disease (GERD). 6. Dyslipidemia. HOSPITAL COURSE: The patient is a 57-year-old man who has been on Remicade for the last 15 years, who has been having pain in the right side of his ear with worsening swelling. He had been seen by his primary care provider on Saturday and was provided Keflex. He took it for one day but did not get improvement. He went to urgent care where he was prescribed clindamycin. He was on that for 2 days; however, the swelling quickly worsened, prompting him to present to the emergency room. He was admitted to the hospitalist service and was started on empiric vancomycin and Zosyn. He was seen by Dr. Gregg Lamar of ENT and started on Ciprodex. The patient remained on this for 48 hours in the hospital and had prompt improvement in his symptoms with decreased erythema, swelling and pain. SUBJECTIVE: This morning, the patient tells me that he is feeling better. Throughout his entire stay he has been afebrile with no leukocytosis. No tachycardia. OBJECTIVE: The patient feels better. He has no complaints. He has no fevers, chills, nausea, vomiting, or diarrhea. VITAL SIGNS: Temperature 97.1, pulse 58, respiratory rate 18, blood pressure 149/84, oxygen saturation 96% on room air. GENERAL: He is a morbidly obese, middle aged, man. He does not appear to be in any acute distress. HEENT: His right ear does appear to be less erythematous, less swollen. It has begun to crust. Less tenderness to palpation. He has decrease in the cervical lymphadenopathy. CARDIOVASCULAR: S1, S2 regular. RESPIRATORY EXAM: Clear. He has an enlarged neck. Breath sounds are distant secondary to body habitus. ABDOMINAL EXAM: Grossly obese. EXTREMITIES: No clubbing, cyanosis, or edema. LABORATORY STUDIES: WBC 5.6, hemoglobin 14.5, platelet count 155. Chemistry panel: Sodium 141, potassium 4.8, chloride 107, bicarbonate 29, BUN 17, creatinine 1.1, ESR was 4.1 at the time of admission and 1.2 today. Microbiology: Blood cultures have been negative. CT revealed cellulitis of the pinna. ASSESSMENT AND PLAN: This is a 57-year-old man with cellulitis of the pinna. 1. Cellulitis of the pinna. The patient is immunocompromised being on Remicade for many years. He has been on empiric vancomycin and Zosyn, as well as Ciprodex. The patient was seen by Dr. Gregg Lamar and the patient is significantly improved. At this time, we will transition to oral antibiotics and provide him with doxycycline to cover for any potential methicillin resistant Staphylococcus aureus (MRSA) infection, as well as levofloxacin to cover for any potential pseudomonas. He will also continue with Ciprodex topical. He will continue with the antibiotics for a 10-day course. He will followup with the physician's assistant professor of philosophy in the ENT clinic within 1 week, as well as his primary care provider in 1 week to ensure resolution of his symptoms. He has been afebrile and has not had leukocytosis or appear grossly septic during his stay here. He remained hemodynamically stable. 2. Ankylosing spondylitis. He is okay to resume his home Remicade, as well as his Mobic. He is at his functional baseline. 3. Obstructive sleep apnea. He is compliant with continuous positive airway pressure (CPAP). 4. Seasonal allergies. He was continued on Zyrtec. 5. B12 deficiency. He is continued on supplementation. 6. Hypertension. Blood pressure is well controlled on Lisinopril. 7. Gastroesophageal reflux disease (GERD). Continued on home omeprazole. 8. Dyslipidemia. He was continued on Zocor. 9. Deep vein thrombosis (DVT) prophylaxis. The patient was on Lovenox. DISPOSITION: The patient is being discharged home. He is independent of his activities of daily living. He is at his functional baseline. His symptoms have improved. As outlined above, he will followup with his primary care provider and ENT physician's assistant professor of philosophy within 7 days. Activity and diet are as prior to admission. He is to return to the emergency room if symptoms worsen. MEDICATIONS: At the time of discharge: - Ciprodex 0.3/0.1% drop, 10 drops to right ear twice a day for 10 days - doxycycline 100 mg by mouth twice a day for 10 days - levofloxacin 500 mg by mouth twice a day for 10 days - Androgel 1.62% gel transdermally daily applied to each shoulder - aspirin 81 mg daily - calcium citrate 500 mg three times a day - cetirizine 10 mg daily - vitamin D3 2000 units daily - vitamin B12 500 mcg daily - Remicade every 8 weeks intravenously - Lisinopril 10 mg daily - meloxicam 7.5 mg twice a day - multivitamin one tablet daily - omeprazole 20 mg daily - simvastatin 20 mg by mouth at night Greater than 30 minutes was spent organizing disposition.
== END 2017-07-12 10:54 | disposition home or self-care (01) | DRG 115 ==
LOC: M ED 09:20 → M ED INP 13:43 → M MS4PR 15:05
PROVIDERS: ADMIT Internal Medicine; ATTEND Internal Medicine
DX: H60.11 Cellulitis of right external ear (principal); Z68.42 Body mass index [BMI] 45.0-49.9, adult; I10 Essential (primary) hypertension; E66.01 Morbid (severe) obesity due to excess calories; M45.9 Ankylosing spondylitis of unspecified sites in spine; E78.5 Hyperlipidemia, unspecified; E53.8 Deficiency of other specified B group vitamins; R59.0 Localized enlarged lymph nodes; G47.33 Obstructive sleep apnea (adult) (pediatric); J30.2 Other seasonal allergic rhinitis; K21.9 Gastro-esophageal reflux disease without esophagitis; Z98.84 Bariatric surgery status; Z87.891 Personal history of nicotine dependence; Z79.899 Other long term (current) drug therapy; Z79.82 Long term (current) use of aspirin; Z91.048 Other nonmedicinal substance allergy status

== ENCOUNTER → 2017-07-10 | Outpatient (REF) | payer BC | LOC: M LAB REF 11:50 | PROVIDERS: ATTEND Nurse Practitioner Adult Health | DX: H60.11 Cellulitis of right external ear (principal) ==

== ENCOUNTER → 2017-10-28 | Outpatient (REF) | payer BC ==
[2017-10-28 19:35] LABS: C REACTIVE PROTEIN QUANTITATIV < 0.30 MG/DL (0.00-0.30)
== END ==
LOC: M LAB REF 18:32
DX: M45.0 Ankylosing spondylitis of multiple sites in spine (principal); Z79.899 Other long term (current) drug therapy
CPT/HCPCS: 86140

== ENCOUNTER 2018-02-06 08:41 | Outpatient (CLI) | payer BC ==
[2018-02-06] MEDS: FILTER 1.2 MICRON (ADULT TPN/MANNITOL/REMICADE) XX (09:00)
[2018-02-06] MEDS: LORATADINE 10 MG TAB PO (09:00)
[2018-02-06] MEDS: ACETAMINOPHEN 650 MG PO PO (09:18)
[2018-02-06] MEDS: NS 1,000 ML IV (09:18)
[2018-02-06] MEDS: inFLIXimab INJECTION 800 MG in NS 170 ML IV (09:20)
== END 2018-02-06 11:40 | disposition home or self-care (01) ==
LOC: M INFU 08:41
DX: M45.9 Ankylosing spondylitis of unspecified sites in spine (principal); L40.8 Other psoriasis; G47.30 Sleep apnea, unspecified; N19 Unspecified kidney failure; M54.9 Dorsalgia, unspecified; M12.9 Arthropathy, unspecified; Z79.82 Long term (current) use of aspirin; Z79.899 Other long term (current) drug therapy; Z87.442 Personal history of urinary calculi; Z98.84 Bariatric surgery status
CPT/HCPCS: J1745

== ENCOUNTER → 2018-03-04 | Outpatient (REF) | payer BC ==
[2018-03-04 19:10] LABS: IRON (FE) 152 UG/DL (65-175)
[2018-03-04 19:16] LABS: VITAMIN B12 LEVEL 973 PG/ML (247-911)
== END ==
LOC: M LAB REF 17:14
DX: Z98.84 Bariatric surgery status (principal)
CPT/HCPCS: 83540

== ENCOUNTER 2018-04-03 06:55 | Outpatient (CLI) | payer BC ==
[2018-04-03] MEDS: LORATADINE 10 MG TAB PO (07:15)
[2018-04-03] MEDS: FILTER 1.2 MICRON (ADULT TPN/MANNITOL/REMICADE) XX (07:30)
[2018-04-03] MEDS: ACETAMINOPHEN TAB 650MG DOSE (2X325MG) PO (07:30)
[2018-04-03] MEDS ORDERED: NS 1,000 ML IV (07:30)
[2018-04-03] MEDS: inFLIXimab INJECTION 900 MG in NS 160 ML IV (07:51)
== END 2018-04-03 10:35 | disposition home or self-care (01) ==
LOC: M INFU 06:55
DX: M45.9 Ankylosing spondylitis of unspecified sites in spine (principal); Z98.84 Bariatric surgery status; Z91.048 Other nonmedicinal substance allergy status; Z79.82 Long term (current) use of aspirin; Z79.899 Other long term (current) drug therapy
CPT/HCPCS: J1745

== ENCOUNTER 2018-05-29 06:50 | Outpatient (CLI) | payer BC ==
[2018-05-29] MEDS: inFLIXimab INJECTION 900 MG in NS 160 ML IV (07:15)
[2018-05-29] MEDS ORDERED: FILTER 1.2 MICRON (ADULT TPN/MANNITOL/REMICADE) XX (07:15)
[2018-05-29] MEDS: NS 1,000 ML IV (07:15)
[2018-05-29] MEDS: LORATADINE 10 MG TAB PO (07:15)
[2018-05-29] MEDS: ACETAMINOPHEN TAB 650MG DOSE (2X325MG) PO (07:22)
== END 2018-05-29 10:15 | disposition home or self-care (01) ==
LOC: M INFU 06:50
DX: M45.9 Ankylosing spondylitis of unspecified sites in spine (principal); E78.00 Pure hypercholesterolemia, unspecified; I10 Essential (primary) hypertension; G47.30 Sleep apnea, unspecified; J30.2 Other seasonal allergic rhinitis; Z79.82 Long term (current) use of aspirin; Z79.899 Other long term (current) drug therapy; Z91.048 Other nonmedicinal substance allergy status; Z91.018 Allergy to other foods; Z87.442 Personal history of urinary calculi; Z98.84 Bariatric surgery status
CPT/HCPCS: J1745

== ENCOUNTER 2018-07-24 07:45 | Outpatient (CLI) | payer BC ==
[~2018-07-24 07:45] MED LIST changes: -/CELE20CA; -/TAMS4CA; -ALL10TAB27 PO; -ANEXIA; -ASPI81TA85 PO; -BABY81CH; -CALC500T36 PO; -CETI10TA; -CVS20TAB PO; -DULC5TAB PO; -FLOM5CAP PO; -INDO25CA PO; -JANUMET; -MELO7.5T7 PO; -PERC5TAB12 PO; -REMICAID; -SIMV40TA2; -TEST5GEL TOP; -THERGRAN PO; -VICO5TAB; -VITA2000 PO; -VITA250L PO; -ZOCO20TA PO; -ZYLO300T4 PO; -cipro; +diphenhydrAMINE 25 MG CAP PO
[2018-07-24] MEDS: LORATADINE 10 MG TAB PO (08:00)
[2018-07-24] MEDS: ACETAMINOPHEN TAB 650MG DOSE (2X325MG) PO (08:00)
[2018-07-24] MEDS: NS 1,000 ML IV (08:00)
[2018-07-24] MEDS: FILTER 1.2 MICRON (ADULT TPN/MANNITOL/REMICADE) XX (08:00)
[2018-07-24] MEDS: inFLIXimab INJECTION 900 MG in NS 160 ML IV (08:29)
== END 2018-07-24 10:45 | disposition home or self-care (01) ==
LOC: M INFU 07:45
DX: M45.9 Ankylosing spondylitis of unspecified sites in spine (principal); Z79.899 Other long term (current) drug therapy; Z79.82 Long term (current) use of aspirin; Z91.048 Other nonmedicinal substance allergy status
CPT/HCPCS: J1745

== ENCOUNTER 2018-09-18 13:33 | Outpatient (CLI) | payer BC ==
[~2018-09-18] VITALS: Ht 177.8 cm; Wt 140.0 kg
[~2018-09-18 13:33] MED LIST changes: +/CELE20CA; +/TAMS4CA; +ALL10TAB28 PO; +ANDR1.62 TD; +ANEXIA; +ASPI81TA85 PO; +BABY81CH; +CALC250T PO; +CALC500T36 PO; +CETI10TA; +CIPRODEX AD; +CVS20TAB PO; +DOXY-350 PO; +DULC5TAB PO; +EZET10TA PO; +FLOM0.4C39 PO; +INDO25CA PO; +INFL10VL IV; +JANUMET; +LEVO500T3 PO; +LISI10TA4 PO; +MELO7.5T7 PO; +PERC5TAB12 PO; +REMICAID; +SIMV40TA2; +TEST5GEL TOP; +THERGRAN PO; +VICO5TAB; +VITA2000 PO; +VITA250L PO; +ZOCO20TA PO; +ZYLO300T6 PO; +cipro; -diphenhydrAMINE 25 MG CAP PO
[2018-09-18 13:40] VITALS: BP 140/67
[2018-09-18] MEDS ORDERED: NS 1,000 ML IV SCH (13:45)
[2018-09-18] MEDS ORDERED: FILTER 1.2 MICRON (ADULT TPN/MANNITOL/REMICADE) XX ONE (13:45)
[2018-09-18] MEDS ORDERED: ACETAMINOPHEN 650MG PO PRIOR TO INFUSION PO ONE (13:45)
[2018-09-18] MEDS ORDERED: LORATADINE 10 MG TAB PO ONE (13:45)
[2018-09-18] MEDS ORDERED: inFLIXimab INJECTION 900 MG in NS 160 ML IV ONE (14:00)
[2018-09-18 14:50] VITALS: BP 124/59
[2018-09-18 15:30] VITALS: BP 131/62
[2018-09-18 15:50] VITALS: BP 131/69
== END 2018-09-18 15:50 | disposition home or self-care (01) ==
LOC: M INFU 13:33
PROVIDERS: ATTEND Internal Medicine
DX: M45.9 Ankylosing spondylitis of unspecified sites in spine (principal); Z91.048 Other nonmedicinal substance allergy status
CPT/HCPCS: 96413; 96415; J1745

== ENCOUNTER 2018-11-13 08:15 | Outpatient (CLI) | payer BC ==
[~2018-11-13] VITALS: Ht 177.8 cm; Wt 140.0 kg
[2018-11-13 08:15] VITALS: BP 164/89
[2018-11-13] MEDS ORDERED: FILTER 1.2 MICRON (ADULT TPN/MANNITOL/REMICADE) XX ONE (08:45)
[2018-11-13] MEDS ORDERED: ACETAMINOPHEN 650MG PO PRIOR TO INFUSION PO ONE (08:45)
[2018-11-13] MEDS ORDERED: LORATADINE 10 MG TAB PO ONE (08:45)
[2018-11-13] MEDS ORDERED: NS 1,000 ML IV SCH (08:45)
[2018-11-13] MEDS ORDERED: inFLIXimab INJECTION 900 MG in NS 160 ML IV ONE (09:00)
[2018-11-13 09:28] VITALS: BP 140/72
[2018-11-13 10:12] VITALS: BP 141/67
[2018-11-13 10:22] VITALS: BP 141/79
== END 2018-11-13 10:30 | disposition home or self-care (01) ==
LOC: M INFU 08:15
PROVIDERS: ATTEND Internal Medicine
DX: M45.9 Ankylosing spondylitis of unspecified sites in spine (principal); Z79.82 Long term (current) use of aspirin; Z79.899 Other long term (current) drug therapy; Z91.048 Other nonmedicinal substance allergy status
CPT/HCPCS: 96413; J1745

== ENCOUNTER 2019-01-08 08:14 | Outpatient (CLI) | payer BC ==
[2019-01-08] VITALS (7 sets, daily range): BP systolic 127–144; BP diastolic 58–80
[~2019-01-08] VITALS: Ht 177.8 cm; Wt 140.0 kg
[~2019-01-08 08:14] MED LIST changes: -/CELE20CA; -/TAMS4CA; +CALC12504 PO; -CALC500T36 PO; +CELE1CAP4; -CVS20TAB PO; +FLOM0.4C39; +OMEP20TA9 PO
--- NOTE | 2019-01-08 08:59 | CR.PDOC ---
General Date of Consultation: Jan 08, 2019 Consultation REASON FOR CONSULT: CONSENT FOR REMICAIDE INFUSION FOR ANKYLOSING SPONDYLITIS HISTORY OF PRESENT ILLNESS: This is a 57-year-old male past history ankylosing spondylitis on Remicade for the past 15 years, gastric bypass, hypertension, hyperlipidemia, GERD presents for routine remicaide infusion for ankylosing spondylitis. Pt has been in his usual state of health, and denies any changes in weight, appetite, headache, visual changes, ear pain, tinnitus, discharge, sore throat, rhinorrhea, sob, chest pain, pressure, tightness, nausea, vomiting, abd pain, constipation, dysuria, urgency and frequency. Pt has been adviced of the side effects of remicaide: " >10%:Central nervous system: Headache (18%)Gastrointestinal: Abdominal pain (Crohn disease: 26%; rheumatoid arthritis: 12%), nausea (21%)Hematologic & oncologic: Anemia (children and adolescents with Crohn disease: 11%; adults: <1%Hepatic: Increased serum alanine aminotransferase (<3 x ULN: 17% to 51%; =3 x ULN: 2% to 10%; =5x ULN: 1% to 4%)Immunologic: Antibody development (10% to 51%), increased CHANELLE titer (~50%), antibody development (double-stranded DNA, ~20%)Infection: Infection (children and adolescents with Crohn disease: 38% to 74%; other indications: 27% to 59%; adults with Crohn disease: 50%), serious infection (children and adolescents: 12% to 60%; adults: 5%), abscess (Crohn diseasepatients with fistulizing disease: 15%)Respiratory: Upper respiratory tract infection (rheumatoid arthritis: 32%; children and adolescents with ulcerative colitis: 12%), sinusitis (14%), cough (12%), pharyngitis (8% to 12%)Miscellaneous: Infusion related reaction (=18%; severe: <1%)1% to 10%:Cardiovascular: Flushing (children and adolescents with Crohn disease: 9%), hypertension (7%)Central nervous system: Fatigue (9%), pain (8%)Dermatologic: Skin rash (10%), pruritus (Gastrointestinal: Dyspepsia (10%)Genitourinary: Urinary tract infection (8%)Hematologic & oncologic: Leukopenia (children and adolescents with Crohn disease: 9%; other indications: <1%), neutropenia (children and adolescents with Crohn disease: 7%)Hypersensitivity: Hypersensitivity reaction (children and adolescents with Crohn disease: 6%; other indications: <1%), type IV hypersensitivity reaction (plaque psoriasis: 1%), serum sickness (=1%) Infection: Viral infection (children and adolescents with Crohn disease: 8%), bacterial infection (children and adolescents with Crohn disease: 6%), candidiasis (5%)Neuromuscular & skeletal: Arthralgia (8%), bone fracture (children and adolescentswith Crohn disease: 7%)Respiratory: Bronchitis (10%), pneumonia (=2%)Miscellaneous: Fever (7%)<1%, postmarketing, and/or case reports: Acute hepatic failure, agranulocytosis, anaphylactic shock, anaphylaxis, aspergillosis, autoimmune hepatitis, bacterial pneumonia (legionnaires disease), blastomycosis, bradycardia, bronchospasm, bullous dermatitis (linear IgA) ([place] 2016), cardiac arrhythmia, cellulitis, cerebrovascular accident, cholestasis, chronic inflammatory demyelinating polyneuropathy, coccidioidomycosis, constipation, cryptococcosis, cytomegalovirus disease, dehydration, demyelinating disease of the central nervous system, demyelinating disease (peripheral), dermal ulcer, diaphoresis, dizziness, edema, erythema multiforme, erythematous rash, exacerbation of psoriasis, fungal infection, gas trointestinal infection (salmonellosis), Guillain-[place] syndrome, hemolytic anemia, hepatic failure, hepatic injury, hepatitis, hepatotoxicity (idiosyncratic), hepatosplenic T-cell lymphomas (mainly young adult or adolescent males), herpes zoster infection, histoplasmosis, Hodgkin lymphoma, hypotension, immune thrombocytopenia, increased serum aspartate aminotransferase, interstitial pulmonary disease, intestinal obstruction, ischemic heart disease, jaundice, laryngeal edema, leukemia, listeriosis, liver enzyme disorder (transient), lower respiratory tract infection, lupus-like syndrome, lymphadenopathy, malignant lymphoma, malignant melanoma, malignant neoplasm, malignant neoplasm of breast, malignant neoplasm of cervix, malignant neoplasm of colon or rectum, [place] cell carcinoma, multiple sclerosis, myocardial infarction, neuropathy (includes multifocal motor), nocardiosis, non-Hodgkin lymphoma, opportunistic infection, optic neuritis, pancytopenia, pericardial effusion, pharyngeal edema, pleurisy, pneumonia due to Pneumocystis jirovecii, psoriasis (including new onset, palmoplantar, pustular), pulmonary edema, pulmonary fibrosis, reactivated tuberculosis, reactivation of HBV, sarcoidosis, seizure, sepsis, Mcgrath-Leonard syndrome, temporary vision loss, thrombocytopenia, thrombophlebitis, thrombotic thrombocytopenic purpura, toxic epidermal necrolysis, transverse myelitis, tuberculosis, urticaria, vasculitis (systemic and cutaneous)" PAST MEDICAL HISTORY: As per HPI PAST SURGICAL HISTORY: Gastric bypass, tonsillectomy SOCIAL HISTORY: History of tobacco abuse quit years ago. Occasional alcohol. 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 No illicit drugs. FAMILY HISTORY: Brother and nephew with Crohn's disease ALLERGIES: Please see below. REVIEW OF SYSTEMS: HEENT: Denies sore throat/headache. Has right ear and right neck pain CARDIOVASCULAR: Denies chest pain/palpitations RESPIRATORY: Denies shortness of breath/cough GASTROINTESTINAL: denies nausea/vomiting GENITOURINARY: Denies dysuria/urinary urgency. MUSCULOSKELETAL: Denies myalgias/arthralgias NEUROLOGICAL: Denies any focal weakness HOME MEDICATIONS: Please see below. PHYSICAL EXAMINATION: Vitals: (see below) General: No acute distress, laying comfortably in bed. HEENT: Moist mucous membranes. Swelling and tenderness of the pinna, with prior blister that's the distal end of the pinna. Neck: No JVD. Right cervical lymphadenopathy, tender. No abscess. No induration. Cardiac: RRR, No murmurs Pulm: Clear to auscultation b/l. No wheezing, rhonchi Abd: NT/ND + BS. Obese Ext: No edema or cyanosis. ASSESSMENT/PLAN: This is a 57-year-old male past history ankylosing spondylitis on Remicade for the past 15 years, gastric bypass, hypertension, hyperlipidemia, GERD presents for routine remicaide infusion for ankylosing spondylitis. Pt has been in his usual state of health, and denies any changes in weight, appetite, headache, visual changes, ear pain, tinnitus, discharge, sore throat, rhinorrhea, sob, chest pain, pressure, tightness, nausea, vomiting, abd pain, constipation, dysuria, urgency and frequency. Pt has been adviced of the side effects of remicaide: " >10%:Central nervous system: Headache (18%)Gastrointestinal: Abdominal pain (Crohn disease: 26%; rheumatoid arthritis: 12%), nausea (21%)Hematologic & oncologic: Anemia (children and adolescents with Crohn disease: 11%; adults: <1%Hepatic: Increased serum alanine aminotransferase (<3 x ULN: 17% to 51%; =3 x ULN: 2% to 10%; =5x ULN: 1% to 4%)Immunologic: Antibody development (10% to 51%), increased CHANELLE titer (~50%), antibody development (double-stranded DNA, ~20%)Infection: Infection (children and adolescents with Crohn disease: 38% to 74%; other indications: 27% to 59%; adults with Crohn disease: 50%), serious infection (children and adolescents: 12% to 60%; adults: 5%), abscess (Crohn diseasepatients with fistulizing disease: 15%)Respiratory: Upper respiratory tract infection (rheumatoid arthritis: 32%; children and adolescents with ulcerative colitis: 12%), sinusitis (14%), cough (12%), pharyngitis (8% to 12%)Miscellaneous: Infusion related reaction (=18%; severe: <1%)1% to 10%:Cardiovascular: Flushing (children and adolescents with Crohn disease: 9%), hypertension (7%)Central nervous system: Fatigue (9%), pain (8%)Dermatologic: Skin rash (10%), pruritus (Gastrointestinal: Dyspepsia (10%)Genitourinary: Urinary tract infection (8%)Hematologic & oncologic: Leukopenia (children and adolescents with Crohn disease: 9%; other indications: <1%), neutropenia (children and adolescents with Crohn disease: 7%)Hypersensitivity: Hypersens itivity reaction (children and adolescents with Crohn disease: 6%; other indications: <1%), type IV hypersensitivity reaction (plaque psoriasis: 1%), serum sickness (=1%) Infection: Viral infection (children and adolescents with Crohn disease: 8%), bacterial infection (children and adolescents with Crohn disease: 6%), candidiasis (5%)Neuromuscular & skeletal: Arthralgia (8%), bone fracture (children and adolescentswith Crohn disease: 7%)Respiratory: Bronchitis (10%), pneumonia (=2%)Miscellaneous: Fever (7%)<1%, postmarketing, and/or case reports: Acute hepatic failure, agranulocytosis, anaphylactic shock, anaphylaxis, aspergillosis, autoimmune hepatitis, bacterial pneumonia (legionnaires disease), blastomycosis, bradycardia, bronchospasm, bullous dermatitis (linear IgA) ([place] 2016), cardiac arrhythmia, cellulitis, cerebrovascular accident, cholestasis, chronic inflammatory demyelinating polyneuropathy, coccidioidomycosis, constipation, cryptococcosis, cytomegalovirus disease, dehydration, demyelinating disease of the central nervous system, demyelinating disease (peripheral), dermal ulcer, diaphoresis, dizziness, edema, erythema mu ltiforme, erythematous rash, exacerbation of psoriasis, fungal infection, gastrointestinal infection (salmonellosis), Guillain-[place] syndrome, hemolytic anemia, hepatic failure, hepatic injury, hepatitis, hepatotoxicity (idiosyncratic), hepatosplenic T-cell lymphomas (mainly young adult or adolescent males), herpes zoster infection, histoplasmosis, Hodgkin lymphoma, hypotension, immune thrombocytopenia, increased serum aspartate aminotransferase, interstitial pulmonary disease, intestinal obstruction, ische artemio heart disease, jaundice, laryngeal edema, leukemia, listeriosis, liver enzyme disorder (transient), lower respiratory tract infection, lupus-like syndrome, lymphadenopathy, malignant lymphoma, malignant melanoma, malignant neoplasm, malignant neoplasm of breast, malignant neoplasm of cervix, malignant neoplasm of colon or rectum, [place] cell carcinoma, multiple sclerosis, myoca rdial infarction, neuropathy (includes multifocal motor), nocardiosis, non- Hodgkin lymphoma, opportunistic infection, optic neuritis, pancytopenia, pericardial effusion, pharyngeal edema, pleurisy, pneumonia due to Pneumocystis jirovecii, psoriasis (including new onset, palmoplantar, pustular), pulmonary edema, pulmonary fibrosis, reactivated tuberculosis, reactivation of HBV, sarc oidosis, seizure, sepsis, Mcgrath-Leonard syndrome, temporary vision loss, thrombocytopenia, thrombophlebitis, thrombotic thrombocytopenic purpura, toxic epidermal necrolysis, transverse myelitis, tuberculosis, urticaria, vasculitis (systemic and cutaneous)" Ankylosing spondylitis- discussed side effects of remicaide. Pt has been using remicaide for years with no previous adverse effects. consent signed, and RN aware to call MD should side effects appear during his infusion. outpt fu with his despatching and receiving clerk. History of hypertension- continue lisinopril History of GERD- on PPI History of hyperlipidemia- on statin disposition: dc home with outpt fu w his despatching and receiving clerk after iv infusion. Allergies Coded Allergies: nickel (Verified Allergy, Intermediate, RASH, 01/08/19) TAPE (Verified Allergy, Unknown, 01/09/17) Home Medications Scheduled Aspirin (Aspir 81) 81 Mg Tab, 81 MG PO DAILY, (Reported) Calcium Citrate (Calcium Citrate) 250 Mg Tab, 500 MG PO TID, (Reported) Cetirizine HCl (Cetirizine HCl) 10 Mg Tab, 10 MG PO DAILY, (Reported) Cholecalciferol (Vitamin D3) (Vitamin D3) 2,000 Unit Cap, 2,000 UNIT PO DAILY, (Reported) Cyanocobalamin (Vitamin B-12) (Vitamin B-12) 250 Mcg Aneta, 500 MCG PO DAILY, (Reported) Ezetimibe (Ezetimibe) 10 Mg Tab, 1 TAB PO DAILY for 30 Days, #30 (Reported) Infliximab Injection (Remicade) Unknown Strength Vial, Unknown Dose IV ASDI RECTED, (Reported) EVERY 8 WEEKS Lisinopril (Lisinopril) 10 Mg Tab, 10 MG PO DAILY, (Reported) Meloxicam (Meloxicam) 7.5 Mg Tab, 7.5 MG PO BID, (Reported) Multivitamins (Theragran) 1 Tab Tab, 1 TAB PO BID, (Reported) Omeprazole (Omeprazole) 20 Mg Tab, 20 MG PO DAILY, (Reported) Testosterone (Androgel) 1.62 % Gel, 2 DOSE TD DAILY, (Reported) 1 PUMP APPLIED TO EACH SHOULDER ZHAO CUNHA MD Jan 08, 2019 08:40
[2019-01-08] MEDS ORDERED: inFLIXimab INJECTION 900 MG in NS 160 ML IV ONE (09:00)
[2019-01-08] MEDS ORDERED: LORATADINE 10 MG TAB PO ONE (09:00)
[2019-01-08] MEDS ORDERED: NS 1,000 ML IV SCH (09:00)
[2019-01-08] MEDS ORDERED: ACETAMINOPHEN 650MG PO PRIOR TO INFUSION PO ONE (09:00)
[2019-01-08] MEDS ORDERED: FILTER 1.2 MICRON (ADULT TPN/MANNITOL/REMICADE) XX ONE (09:00)
== END 2019-01-08 11:20 | disposition home or self-care (01) ==
LOC: M INFU 08:14
PROVIDERS: ATTEND Internal Medicine
DX: M45.9 Ankylosing spondylitis of unspecified sites in spine (principal); Z91.048 Other nonmedicinal substance allergy status
CPT/HCPCS: 96413; 96415; J1745

== ENCOUNTER → 2019-01-28 | Outpatient (CLI) | payer BC ==
--- NOTE | 2019-01-29 04:26 | REP ---
Clinical: Trauma. Technique: AP, lateral, bilateral oblique views right foot . Findings: The osseous structures and joint spaces are intact and normal. There is no evidence for acute fracture or dislocation. Surrounding soft tissues are unremarkable. No subcutaneous emphysema or radiodense foreign body. Impression: Normal right foot series . No acute fracture or dislocation. Electronically Signed by Surendra Salas MD 01/29/2019 04:18 A
== END ==
LOC: M ADAMS 11:07
PROVIDERS: ATTEND Physician Assistant Medical
DX: S90.31XA Contusion of right foot, initial encounter (principal); X58.XXXA Exposure to other specified factors, initial encounter; Y92.89 Other specified places as the place of occurrence of the external cause

== ENCOUNTER 2019-03-05 08:10 | Outpatient (CLI) | payer BC ==
[~2019-03-05] VITALS: Ht 177.8 cm; Wt 140.0 kg
[~2019-03-05 08:10] MED LIST changes: -EZET10TA PO; +EZET10TA21 PO
[2019-03-05 08:30] VITALS: BP 159/84
[2019-03-05] MEDS ORDERED: ACETAMINOPHEN 650MG PO PRIOR TO INFUSION PO ONE (09:00)
[2019-03-05] MEDS ORDERED: NS 1,000 ML IV SCH (09:00)
[2019-03-05] MEDS ORDERED: LORATADINE 10 MG TAB PO ONE (09:00)
[2019-03-05] MEDS ORDERED: FILTER 1.2 MICRON (ADULT TPN/MANNITOL/REMICADE) XX ONE (09:00)
[2019-03-05] MEDS ORDERED: inFLIXimab INJECTION 900 MG in NS 160 ML IV ONE (09:30)
[2019-03-05 10:28] VITALS: BP 157/79
== END 2019-03-05 10:30 | disposition home or self-care (01) ==
LOC: M INFU 08:10
PROVIDERS: ATTEND Nurse Practitioner
DX: M45.9 Ankylosing spondylitis of unspecified sites in spine (principal)
CPT/HCPCS: 96413; J1745

== ENCOUNTER 2019-04-30 09:02 | Outpatient (CLI) | payer BC ==
[~2019-04-30] VITALS: Ht 177.8 cm; Wt 144.8 kg
[~2019-04-30 09:02] MED LIST changes: -CALC12504 PO; +CALC500T61 PO
[2019-04-30 09:10] VITALS: BP 160/86
[2019-04-30] MEDS ORDERED: FILTER 1.2 MICRON (ADULT TPN/MANNITOL/REMICADE) XX ONE (09:30)
[2019-04-30] MEDS ORDERED: NS 1,000 ML IV SCH (09:30)
[2019-04-30] MEDS ORDERED: LORATADINE 10 MG TAB PO ONE (09:30)
[2019-04-30] MEDS ORDERED: ACETAMINOPHEN 650MG PO PRIOR TO INFUSION PO ONE (09:30)
[2019-04-30] MEDS ORDERED: NS IV ONE (10:00)
[2019-04-30] MEDS ORDERED: INFLIXIMAB IV ONE (10:00)
[2019-04-30 10:25] VITALS: BP 132/60
[2019-04-30 10:50] VITALS: BP 129/61
[2019-04-30 11:30] VITALS: BP 130/60
[2019-04-30 11:50] VITALS: BP 136/68
== END 2019-04-30 11:50 | disposition home or self-care (01) ==
LOC: M INFU 09:02
PROVIDERS: ATTEND Nurse Practitioner
DX: M45.9 Ankylosing spondylitis of unspecified sites in spine (principal)
CPT/HCPCS: 96413; J1745

== ENCOUNTER 2019-06-25 08:56 | Outpatient (CLI) | payer BC ==
[~2019-06-25] VITALS: Ht 177.8 cm; Wt 140.0 kg
[~2019-06-25 08:56] MED LIST changes: -ALL10TAB28 PO; +ALL10TAB29 PO; +INDO-16 PO; -INDO25CA PO
[2019-06-25 09:00] VITALS: BP 149/85
[2019-06-25] MEDS ORDERED: LORATADINE 10 MG TAB PO ONE (09:15)
[2019-06-25] MEDS ORDERED: FILTER 1.2 MICRON (ADULT TPN/MANNITOL/REMICADE) XX ONE (09:30)
[2019-06-25] MEDS ORDERED: INFLIXIMAB BIOSIMILAR 1,000 MG in NS 150 ML IV ONE (09:30)
[2019-06-25] MEDS ORDERED: NS 1,000 ML IV SCH (09:30)
[2019-06-25] MEDS ORDERED: ACETAMINOPHEN 650MG PO PRIOR TO INFUSION PO ONE (09:30)
[2019-06-25] MEDS ORDERED: NS IV ONE (10:00)
[2019-06-25] MEDS ORDERED: INFLIXIMAB IV ONE (10:00)
[2019-06-25 10:30] VITALS: BP 142/77
[2019-06-25] MEDS ORDERED: BEET ROOT PO (11:13)
[2019-06-25 11:15] VITALS: BP 160/87
[2019-06-25 11:30] VITALS: BP 156/76
== END 2019-06-25 11:30 | disposition home or self-care (01) ==
LOC: M INFU 08:56
PROVIDERS: ATTEND Nurse Practitioner
DX: M45.9 Ankylosing spondylitis of unspecified sites in spine (principal); Z91.048 Other nonmedicinal substance allergy status
CPT/HCPCS: 96413; J1745

== ENCOUNTER 2019-08-19 08:47 | Outpatient (CLI) | payer BC ==
[~2019-08-19] VITALS: Ht 177.8 cm; Wt 140.0 kg
[~2019-08-19 08:47] MED LIST changes: +BEET ROOT PO
[2019-08-19] MEDS ORDERED: NS 1,000 ML IV SCH (09:00)
[2019-08-19] MEDS ORDERED: INFLIXIMAB BIOSIMILAR 1,000 MG in NS 150 ML IV ONE (09:00)
[2019-08-19] MEDS ORDERED: FILTER 1.2 MICRON (ADULT TPN/MANNITOL/REMICADE) XX ONE (09:00)
[2019-08-19 09:02] VITALS: BP 167/104
[2019-08-19] MEDS: LORATADINE 10 MG TAB PO ONE ×2 (09:08→09:11)
[2019-08-19] MEDS: ACETAMINOPHEN 650MG PO PRIOR TO INFUSION PO ONE ×2 (09:08→09:10)
[2019-08-19 10:51] VITALS: BP 160/74
== END 2019-08-19 10:50 | disposition home or self-care (01) ==
LOC: M INFU 08:47
PROVIDERS: ATTEND Nurse Practitioner
DX: M45.9 Ankylosing spondylitis of unspecified sites in spine (principal)
CPT/HCPCS: 96413; Q5103

== ENCOUNTER 2019-10-14 08:40 | Outpatient (CLI) | payer BC ==
[~2019-10-14] VITALS: Ht 182.9 cm; Wt 140.0 kg
[2019-10-14 08:51] VITALS: BP 142/72
[2019-10-14] MEDS ORDERED: LORA-674 PO (08:59)
[2019-10-14] MEDS ORDERED: ACETAMINOPHEN 650MG PO PRIOR TO INFUSION PO ONE (10:00)
[2019-10-14] MEDS ORDERED: LORATADINE 10 MG TAB PO ONE (10:00)
[2019-10-14] MEDS ORDERED: NS IV ONE (10:00)
[2019-10-14] MEDS ORDERED: NS 1,000 ML IV SCH (10:00)
[2019-10-14] MEDS ORDERED: INFLIXIMAB IV ONE (10:00)
[2019-10-14 10:41] VITALS: BP 146/69
== END 2019-10-14 10:40 | disposition home or self-care (01) ==
LOC: M INFU 08:40
PROVIDERS: ATTEND Physician Assistant
DX: M45.9 Ankylosing spondylitis of unspecified sites in spine (principal); Z91.048 Other nonmedicinal substance allergy status
CPT/HCPCS: 96413; J1745

== ENCOUNTER 2019-12-10 08:57 | Outpatient (CLI) | payer BC ==
[~2019-12-10] VITALS: Ht 182.9 cm; Wt 140.0 kg
[~2019-12-10 08:57] MED LIST changes: +LORA-674 PO
[2019-12-10 09:05] VITALS: BP 158/76
[2019-12-10] MEDS ORDERED: LORATADINE 10 MG TAB PO ONE (09:15)
[2019-12-10] MEDS ORDERED: ACETAMINOPHEN 650MG PO PRIOR TO INFUSION PO ONE (09:30)
[2019-12-10] MEDS ORDERED: NS IV ONE (09:30)
[2019-12-10] MEDS ORDERED: INFLIXIMAB IV ONE (09:30)
[2019-12-10] MEDS ORDERED: NS 1,000 ML IV SCH (09:30)
[2019-12-10 10:45] VITALS: BP 134/62
== END 2019-12-10 10:50 | disposition home or self-care (01) ==
LOC: M INFU 08:57
PROVIDERS: ATTEND Physician Assistant
DX: M45.9 Ankylosing spondylitis of unspecified sites in spine (principal); Z91.048 Other nonmedicinal substance allergy status
CPT/HCPCS: 96365; J1745

== ENCOUNTER 2020-02-03 08:02 | Outpatient (CLI) | payer BC ==
[~2020-02-03] VITALS: Ht 182.9 cm; Wt 140.0 kg
[2020-02-03 08:10] VITALS: BP 147/74
[2020-02-03] MEDS ORDERED: ACETAMINOPHEN 650MG PO PRIOR TO INFUSION PO ONE (08:15)
[2020-02-03] MEDS ORDERED: NS 1,000 ML IV SCH (08:15)
[2020-02-03] MEDS ORDERED: LORATADINE 10 MG TAB PO ONE (08:15)
[2020-02-03 08:24] VITALS: BP 147/74
[2020-02-03] MEDS ORDERED: NS IV ONE (08:30)
[2020-02-03] MEDS ORDERED: INFLIXIMAB IV ONE (08:30)
[2020-02-03 09:13] VITALS: BP 145/72
[2020-02-03 10:00] VITALS: BP 141/76
[2020-02-03 10:01] VITALS: BP 141/76
== END 2020-02-03 10:00 | disposition home or self-care (01) ==
LOC: M INFU 08:02
PROVIDERS: ATTEND Physician Assistant
DX: M45.2 Ankylosing spondylitis of cervical region (principal); Z91.048 Other nonmedicinal substance allergy status
CPT/HCPCS: 96413; J1745

== ENCOUNTER 2020-03-30 08:09 | Outpatient (CLI) | payer BC ==
[~2020-03-30] VITALS: Ht 182.9 cm; Wt 140.0 kg
[~2020-03-30 08:09] MED LIST changes: -ALL10TAB29 PO; -ASPI81TA85 PO; +ASPI81TA86 PO; +CETI-24 PO
[2020-03-30 08:15] VITALS: BP 151/81
[2020-03-30] MEDS ORDERED: ACETAMINOPHEN 650MG PO PRIOR TO INFUSION PO ONE (08:30)
[2020-03-30] MEDS ORDERED: LORATADINE 10 MG TAB PO ONE (08:30)
[2020-03-30] MEDS ORDERED: NS 1,000 ML IV SCH (08:30)
[2020-03-30] MEDS ORDERED: INFLIXIMAB IV ONE (08:45)
[2020-03-30] MEDS ORDERED: NS IV ONE (08:45)
[2020-03-30 09:00] VITALS: BP 155/78
[2020-03-30 09:15] VITALS: BP 128/63
[2020-03-30 10:05] VITALS: BP 140/63
== END 2020-03-30 10:10 | disposition home or self-care (01) ==
LOC: M INFU 08:09
PROVIDERS: ATTEND Physician Assistant
DX: M45.9 Ankylosing spondylitis of unspecified sites in spine (principal)
CPT/HCPCS: 96413; J1745

== ENCOUNTER → 2020-06-20 | Outpatient (REF) | payer BC | LOC: M LAB REF 12:10 | PROVIDERS: ATTEND Physician Assistant | DX: J02.9 Acute pharyngitis, unspecified (principal) ==

== ENCOUNTER → 2020-07-12 | Outpatient (REF) | payer BC | LOC: M LAB REF 16:33 → EEVIPCON 16:33 | PROVIDERS: ATTEND Physician Assistant | DX: L03.012 Cellulitis of left finger (principal); L02.512 Cutaneous abscess of left hand ==

== ENCOUNTER → 2020-07-21 | Outpatient (REF) | payer BC ==
[2020-07-21 17:32] LABS: C REACTIVE PROTEIN QUANTITATIV 0.34 MG/DL (0.00-0.30); RHEUMATOID FACTOR QUANT < 10.0 IU/ML (<15.0)
[2020-07-21 17:33] LABS: HEPATITIS B SURFACE ANTIBODY NEGATIVE (POSITIVE)
[2020-07-21 17:45] LABS: HEPATITIS B SURFACE ANTIGEN NEGATIVE (NEGATIVE)
[2020-07-21 18:13] LABS: HEPATITIS C VIRUS ABY INDEX 0.1 INDEX (<0.8)
[2020-07-28 13:08] LABS: HEPATITIS B CORE ANTIBODY IGG Negative (Negative); HLA-B27 Positive (.)
== END ==
LOC: M LAB REF 16:36
PROVIDERS: ATTEND Nurse Practitioner Adult Health
DX: R79.89 Other specified abnormal findings of blood chemistry (principal); M45.0 Ankylosing spondylitis of multiple sites in spine

== ENCOUNTER → 2020-08-16 | Outpatient (REF) | payer BC ==
[2020-08-16 16:46] LABS: BASO % 0.3 % (0.0-1.0); EOS # 0.2 10^3/uL (0.0-0.5); EOS % 3.7 % (0.0-3.0); HEMATOCRIT 47.4 % (42.0-52.0); HEMOGLOBIN 15.9 g/dl (13.5-17.5); LYMPH # 2.4 10^3/uL (1.5-5.0); LYMPH % 36.8 % (24.0-44.0); MEAN CORPUSCULAR HEMOGLOBIN 32.9 pg (27.0-33.0); MEAN CORPUSCULAR HGB CONC 33.5 g/dl (32.0-36.5); MEAN CORPUSCULAR VOLUME 97.9 fl (80.0-96.0); MONO # 0.4 10^3/uL (0.0-0.8); NEUTROPHILS # 3.4 10^3/uL (1.5-8.5); NEUTROPHILS % 52.6 % (36.0-66.0); PLATELET COUNT, AUTOMATED 201 10^3/uL (150-450); RED BLOOD COUNT 4.84 10^6/uL (4.30-6.10); WHITE BLOOD COUNT 6.5 10^3/uL (4.0-10.0)
[2020-08-16 17:29] LABS: ALBUMIN 3.6 GM/DL (3.2-5.2); ALT/SGPT 107 U/L (12-78); BILIRUBIN,DIRECT 0.2 MG/DL (0.0-0.2); BILIRUBIN,TOTAL 0.9 MG/DL (0.2-1.0); BLOOD UREA NITROGEN 19 MG/DL (7-18); CALCIUM LEVEL 9.1 MG/DL (8.5-10.1); CARBON DIOXIDE LEVEL 27 MEQ/L (21-32); CHLORIDE LEVEL 104 MEQ/L (98-107); CREATININE FOR GFR 1.01 MG/DL (0.70-1.30); GLOMERULAR FILTRATION RATE > 60.0 (>56); GLUCOSE, FASTING 225 MG/DL (70-100); POTASSIUM SERUM 4.7 MEQ/L (3.5-5.1); SODIUM LEVEL 138 MEQ/L (136-145); TOTAL PROTEIN 7.2 GM/DL (6.4-8.2)
[2020-08-16 19:15] LABS: ERYTHROCYTE SEDIMENTATION RATE 12 mm/hr (0-20)
== END ==
LOC: M SFHCRHEU 12:05
PROVIDERS: ATTEND Internal Medicine
DX: M45.0 Ankylosing spondylitis of multiple sites in spine (principal)

== ENCOUNTER 2020-09-14 07:43 | Outpatient (CLI) | payer BC ==
[~2020-09-14] VITALS: Ht 208.3 cm; Wt 144.8 kg
[~2020-09-14 07:43] MED LIST changes: +ALBUTEROL SULFATE 2.5 MG/0.5 ML INH NEB SOLN INH PRN; +EPINEPHrine INJ 1 MG/ML 1ML AMP IM PRN; +diphenhydrAMINE 50MG/ML VIAL (J1200) IV PRN; +methylPREDNISolone 125MG 2ML VIAL IV PRN
[2020-09-14 07:45] VITALS: BP 178/77
[2020-09-14] MEDS ORDERED: NS 1,000 ML IV SCH (08:00)
[2020-09-14] MEDS ORDERED: INFLIXIMAB IV ONE (08:00)
[2020-09-14] MEDS ORDERED: NS IV ONE (08:00)
[2020-09-14 08:07] VITALS: BP 178/77
[2020-09-14] MEDS ORDERED: METF500T13 PO (08:30)
[2020-09-14 09:15] VITALS: BP 134/64
[2020-09-14 09:53] VITALS: BP 167/78
== END 2020-09-14 10:00 | disposition home or self-care (01) ==
LOC: M INFU 07:43
PROVIDERS: ATTEND Internal Medicine
DX: M45.0 Ankylosing spondylitis of multiple sites in spine (principal); Z91.048 Other nonmedicinal substance allergy status
CPT/HCPCS: 96413; J1745

== ENCOUNTER 2020-11-09 07:40 | Outpatient (CLI) | payer BC ==
[~2020-11-09] VITALS: Ht 182.9 cm; Wt 144.8 kg
[~2020-11-09 07:40] MED LIST changes: +CIPR7.5D5 AD; -CIPRODEX AD; +LISI10TA22 PO; -LISI10TA4 PO; +METF500T13 PO; +diphenhydrAMINE 25MG CAP PO ONE
[2020-11-09 07:45] VITALS: BP 146/72
[2020-11-09 08:00] VITALS: BP 146/72
[2020-11-09] MEDS ORDERED: NS IV ONE (08:00)
[2020-11-09] MEDS ORDERED: INFLIXIMAB IV ONE (08:00)
[2020-11-09 08:35] VITALS: BP 144/66
[2020-11-09 09:32] VITALS: BP 129/61
== END 2020-11-09 09:30 | disposition home or self-care (01) ==
LOC: M INFU 07:40
PROVIDERS: ATTEND Internal Medicine
DX: M45.0 Ankylosing spondylitis of multiple sites in spine (principal); Z91.048 Other nonmedicinal substance allergy status
CPT/HCPCS: 96413; J1745

== ENCOUNTER → 2020-11-10 | Outpatient (REF) | payer BC ==
[~2020-11-10] MED LIST changes: -ALBUTEROL SULFATE 2.5 MG/0.5 ML INH NEB SOLN INH PRN; -EPINEPHrine INJ 1 MG/ML 1ML AMP IM PRN; -diphenhydrAMINE 25MG CAP PO ONE; -diphenhydrAMINE 50MG/ML VIAL (J1200) IV PRN; -methylPREDNISolone 125MG 2ML VIAL IV PRN
[2020-11-12 19:16] LABS: TESTOSTERONE FREE (DIRECT) 11.3 pg/mL (7.2-24.0)
== END ==
LOC: M LAB REF 16:27
PROVIDERS: ATTEND Nurse Practitioner Adult Health
DX: E29.1 Testicular hypofunction (principal)

== ENCOUNTER → 2020-11-17 | Outpatient (REF) | payer BC ==
[2020-11-17 17:51] LABS: BASO % 0.5 % (0.0-1.0); EOS # 0.3 10^3/uL (0.0-0.5); EOS % 5.1 % (0.0-3.0); HEMATOCRIT 46.8 % (42.0-52.0); HEMOGLOBIN 15.8 g/dl (13.5-17.5); LYMPH # 2.4 10^3/uL (1.5-5.0); LYMPH % 36.1 % (24.0-44.0); MEAN CORPUSCULAR HEMOGLOBIN 32.9 pg (27.0-33.0); MEAN CORPUSCULAR HGB CONC 33.8 g/dl (32.0-36.5); MEAN CORPUSCULAR VOLUME 97.5 fl (80.0-96.0); MONO # 0.4 10^3/uL (0.0-0.8); MONO % 6.4 % (2.0-8.0); NEUTROPHILS # 3.4 10^3/uL (1.5-8.5); NEUTROPHILS % 51.4 % (36.0-66.0); PLATELET COUNT, AUTOMATED 190 10^3/uL (150-450); WHITE BLOOD COUNT 6.5 10^3/uL (4.0-10.0)
[2020-11-17 18:17] LABS: ALBUMIN 3.7 GM/DL (3.2-5.2); ALT/SGPT 95 U/L (12-78); BILIRUBIN,DIRECT 0.2 MG/DL (0.0-0.2); BILIRUBIN,TOTAL 0.7 MG/DL (0.2-1.0); BLOOD UREA NITROGEN 19 MG/DL (7-18); CALCIUM LEVEL 8.6 MG/DL (8.5-10.1); CARBON DIOXIDE LEVEL 26 MEQ/L (21-32); CHLORIDE LEVEL 108 MEQ/L (98-107); CREATININE FOR GFR 1.09 MG/DL (0.70-1.30); GLOMERULAR FILTRATION RATE > 60.0 (>56); GLUCOSE, FASTING 204 MG/DL (70-100); POTASSIUM SERUM 4.4 MEQ/L (3.5-5.1); SODIUM LEVEL 141 MEQ/L (136-145); TOTAL PROTEIN 6.9 GM/DL (6.4-8.2)
[2020-11-17 19:56] LABS: ERYTHROCYTE SEDIMENTATION RATE 8 mm/hr (0-20)
== END ==
LOC: M SFHCRHEU 11:47
PROVIDERS: ATTEND Internal Medicine
DX: M45.0 Ankylosing spondylitis of multiple sites in spine (principal)

== ENCOUNTER → 2020-12-14 | Outpatient (REF) | payer BC ==
[2020-12-14 12:47] LABS: BASO % 0.3 % (0.0-1.0); EOS # 0.4 10^3/uL (0.0-0.5); EOS % 6.1 % (0.0-3.0); LYMPH % 28.6 % (24.0-44.0); MEAN CORPUSCULAR HEMOGLOBIN 33.1 pg (27.0-33.0); MEAN CORPUSCULAR VOLUME 97.1 fl (80.0-96.0); MONO # 0.4 10^3/uL (0.0-0.8); MONO % 6.3 % (2.0-8.0); NEUTROPHILS # 4.1 10^3/uL (1.5-8.5); NEUTROPHILS % 58.3 % (36.0-66.0); PLATELET COUNT, AUTOMATED 181 10^3/uL (150-450); RED BLOOD COUNT 4.84 10^6/uL (4.30-6.10)
[2020-12-14 13:16] LABS: ALBUMIN 3.6 GM/DL (3.2-5.2); ALT/SGPT 84 U/L (12-78); BILIRUBIN,DIRECT 0.3 MG/DL (0.0-0.2); BLOOD UREA NITROGEN 20 MG/DL (7-18); CALCIUM LEVEL 8.8 MG/DL (8.5-10.1); CARBON DIOXIDE LEVEL 26 MEQ/L (21-32); CHLORIDE LEVEL 107 MEQ/L (98-107); CREATININE FOR GFR 1.01 MG/DL (0.70-1.30); GLOMERULAR FILTRATION RATE > 60.0 (>56); GLUCOSE, FASTING 138 MG/DL (70-100); POTASSIUM SERUM 4.4 MEQ/L (3.5-5.1); SODIUM LEVEL 140 MEQ/L (136-145); TOTAL PROTEIN 6.5 GM/DL (6.4-8.2)
[2020-12-14 13:23] LABS: ERYTHROCYTE SEDIMENTATION RATE 6 mm/hr (0-20)
== END ==
LOC: M SFHCADAM 11:31
PROVIDERS: ATTEND Internal Medicine
DX: M45.0 Ankylosing spondylitis of multiple sites in spine (principal)

== ENCOUNTER 2021-01-04 07:43 | Outpatient (CLI) | payer BC ==
[~2021-01-04] VITALS: Ht 177.8 cm; Wt 144.8 kg
[~2021-01-04 07:43] MED LIST changes: +ALBUTEROL SULFATE (2.5MG/0.5ML) NEB INH PRN; +EPINEPHrine (1MG/ML) IV IM PRN; +diphenhydrAMINE (50MG/ML) IV IV PRN; +methylPREDNISolone (125 MG/2 ML) IV IV PRN
[2021-01-04 07:52] VITALS: BP 155/70
[2021-01-04 07:57] VITALS: BP 155/70
[2021-01-04] MEDS ORDERED: NS IV ONE (08:00)
[2021-01-04] MEDS ORDERED: INFLIXIMAB IV ONE (08:00)
[2021-01-04 08:46] VITALS: BP 127/60
[2021-01-04 09:33] VITALS: BP 128/59
== END 2021-01-04 09:35 | disposition home or self-care (01) ==
LOC: M INFU 07:43
PROVIDERS: ATTEND Internal Medicine
DX: M45.0 Ankylosing spondylitis of multiple sites in spine (principal); Z91.048 Other nonmedicinal substance allergy status
CPT/HCPCS: 96413; J1745

== ENCOUNTER → 2021-01-26 | Outpatient (REF) | payer BC ==
[~2021-01-26] MED LIST changes: -ALBUTEROL SULFATE (2.5MG/0.5ML) NEB INH PRN; -EPINEPHrine (1MG/ML) IV IM PRN; -diphenhydrAMINE (50MG/ML) IV IV PRN; -methylPREDNISolone (125 MG/2 ML) IV IV PRN
[2021-01-26 18:50] LABS: HEMOGLOBIN A1c 6.8 %
== END ==
LOC: M LABDRWAD 13:53
PROVIDERS: ATTEND Nurse Practitioner Adult Health
DX: E11.3293 Type 2 diabetes mellitus with mild nonproliferative diabetic retinopathy without macular edema, bilateral (principal)

== ENCOUNTER → 2021-01-26 | Outpatient (REF) | payer BC ==
[2021-01-26 12:54] LABS: BASO % 0.3 % (0.0-1.0); EOS # 0.3 10^3/uL (0.0-0.5); EOS % 5.7 % (0.0-3.0); HEMATOCRIT 49.6 % (42.0-52.0); HEMOGLOBIN 16.8 g/dl (13.5-17.5); LYMPH % 32.6 % (24.0-44.0); MEAN CORPUSCULAR HGB CONC 33.9 g/dl (32.0-36.5); MEAN CORPUSCULAR VOLUME 97.4 fl (80.0-96.0); MONO # 0.3 10^3/uL (0.0-0.8); NEUTROPHILS # 3.4 10^3/uL (1.5-8.5); NEUTROPHILS % 55.9 % (36.0-66.0); PLATELET COUNT, AUTOMATED 186 10^3/uL (150-450); RED BLOOD COUNT 5.09 10^6/uL (4.30-6.10)
[2021-01-26 13:20] LABS: ALT/SGPT 95 U/L (12-78); BLOOD UREA NITROGEN 20 MG/DL (7-18); CALCIUM LEVEL 9.2 MG/DL (8.5-10.1); CARBON DIOXIDE LEVEL 28 MEQ/L (21-32); CHLORIDE LEVEL 107 MEQ/L (98-107); CREATININE FOR GFR 1.08 MG/DL (0.70-1.30); GLOMERULAR FILTRATION RATE > 60.0 (>56); GLUCOSE, FASTING 195 MG/DL (70-100); POTASSIUM SERUM 4.7 MEQ/L (3.5-5.1); SODIUM LEVEL 140 MEQ/L (136-145)
[2021-01-26 13:21] LABS: ALBUMIN 3.8 GM/DL (3.2-5.2); BILIRUBIN,DIRECT 0.3 MG/DL (0.0-0.2); BILIRUBIN,TOTAL 1.3 MG/DL (0.2-1.0); TOTAL PROTEIN 7.1 GM/DL (6.4-8.2)
[2021-01-26 14:51] LABS: ERYTHROCYTE SEDIMENTATION RATE 4 mm/hr (0-20)
== END ==
LOC: M SFHCADAM 09:56
PROVIDERS: ATTEND Internal Medicine
DX: M45.0 Ankylosing spondylitis of multiple sites in spine (principal)

== ENCOUNTER → 2021-01-27 | Outpatient (REF) | payer BC | LOC: M LABDRWAD 15:57 | PROVIDERS: ATTEND Internal Medicine | DX: M45.0 Ankylosing spondylitis of multiple sites in spine (principal) ==

== ENCOUNTER 2021-02-15 07:19 | Outpatient (CLI) | payer BC ==
[~2021-02-15] VITALS: Ht 208.3 cm; Wt 144.8 kg
[~2021-02-15 07:19] MED LIST changes: +ALBUTEROL SULFATE 2.5 MG/0.5 ML INH NEB SOLN INH PRN; +EPINEPHrine INJ 1 MG/ML 1ML AMP IM PRN; +diphenhydrAMINE 50MG/ML VIAL (J1200) IV PRN; +methylPREDNISolone 125MG 2ML VIAL IV PRN
[2021-02-15 07:20] VITALS: BP 136/75
[2021-02-15] MEDS ORDERED: NS IV ONE (07:30)
[2021-02-15] MEDS ORDERED: INFLIXIMAB IV ONE (07:30)
[2021-02-15 07:49] VITALS: BP 136/75
[2021-02-15 08:39] VITALS: BP 135/73
[2021-02-15 09:26] VITALS: BP 146/71
== END 2021-02-15 09:30 | disposition home or self-care (01) ==
LOC: M INFU 07:19
PROVIDERS: ATTEND Internal Medicine
DX: M45.0 Ankylosing spondylitis of multiple sites in spine (principal)
CPT/HCPCS: 96413; J1745

== ENCOUNTER → 2021-02-15 | Outpatient (REF) | payer BC ==
[~2021-02-15] MED LIST changes: +OMEP20TA2 PO; -OMEP20TA9 PO
[2021-02-15 13:31] LABS: BASO % 0.3 % (0.0-1.0); EOS # 0.4 10^3/uL (0.0-0.5); EOS % 6.4 % (0.0-3.0); HEMATOCRIT 46.2 % (42.0-52.0); HEMOGLOBIN 15.5 g/dl (13.5-17.5); LYMPH # 2.4 10^3/uL (1.5-5.0); LYMPH % 38.8 % (24.0-44.0); MEAN CORPUSCULAR HEMOGLOBIN 32.8 pg (27.0-33.0); MEAN CORPUSCULAR HGB CONC 33.5 g/dl (32.0-36.5); MEAN CORPUSCULAR VOLUME 97.9 fl (80.0-96.0); MONO # 0.3 10^3/uL (0.0-0.8); MONO % 5.4 % (2.0-8.0); NEUTROPHILS % 48.6 % (36.0-66.0); PLATELET COUNT, AUTOMATED 174 10^3/uL (150-450); RED BLOOD COUNT 4.72 10^6/uL (4.30-6.10); WHITE BLOOD COUNT 6.1 10^3/uL (4.0-10.0)
[2021-02-15 14:04] LABS: ALT/SGPT 79 U/L (12-78); BLOOD UREA NITROGEN 18 MG/DL (7-18); CALCIUM LEVEL 8.9 MG/DL (8.5-10.1); CARBON DIOXIDE LEVEL 29 MEQ/L (21-32); CHLORIDE LEVEL 107 MEQ/L (98-107); CREATININE FOR GFR 0.99 MG/DL (0.70-1.30); GLOMERULAR FILTRATION RATE > 60.0 (>56); GLUCOSE, FASTING 166 MG/DL (70-100); POTASSIUM SERUM 4.3 MEQ/L (3.5-5.1); SODIUM LEVEL 142 MEQ/L (136-145)
[2021-02-15 14:05] LABS: ALBUMIN 3.5 GM/DL (3.2-5.2); BILIRUBIN,DIRECT 0.2 MG/DL (0.0-0.2); BILIRUBIN,TOTAL 0.9 MG/DL (0.2-1.0); TOTAL PROTEIN 6.7 GM/DL (6.4-8.2)
[2021-02-15 14:45] LABS: ERYTHROCYTE SEDIMENTATION RATE 6 mm/hr (0-20)
== END ==
LOC: M SFHCADAM 10:05
PROVIDERS: ATTEND Internal Medicine
DX: M45.0 Ankylosing spondylitis of multiple sites in spine (principal)

== ENCOUNTER → 2021-03-17 | Outpatient (REF) | payer BC ==
[~2021-03-17] MED LIST changes: -ALBUTEROL SULFATE 2.5 MG/0.5 ML INH NEB SOLN INH PRN; -EPINEPHrine INJ 1 MG/ML 1ML AMP IM PRN; -diphenhydrAMINE 50MG/ML VIAL (J1200) IV PRN; -methylPREDNISolone 125MG 2ML VIAL IV PRN
[2021-03-17 13:11] LABS: BASO % 0.5 % (0.0-1.0); EOS # 0.3 10^3/uL (0.0-0.5); EOS % 4.3 % (0.0-3.0); HEMATOCRIT 45.4 % (42.0-52.0); HEMOGLOBIN 15.2 g/dl (13.5-17.5); LYMPH % 33.6 % (24.0-44.0); MEAN CORPUSCULAR HEMOGLOBIN 32.5 pg (27.0-33.0); MEAN CORPUSCULAR HGB CONC 33.5 g/dl (32.0-36.5); MONO # 0.5 10^3/uL (0.0-0.8); NEUTROPHILS # 3.2 10^3/uL (1.5-8.5); NEUTROPHILS % 53.1 % (36.0-66.0); PLATELET COUNT, AUTOMATED 177 10^3/uL (150-450); RED BLOOD COUNT 4.68 10^6/uL (4.30-6.10)
[2021-03-17 13:39] LABS: ALBUMIN 3.7 GM/DL (3.2-5.2); ALT/SGPT 85 U/L (12-78); BILIRUBIN,DIRECT 0.3 MG/DL (0.0-0.2); BILIRUBIN,TOTAL 1.1 MG/DL (0.2-1.0); BLOOD UREA NITROGEN 18 MG/DL (7-18); CALCIUM LEVEL 8.4 MG/DL (8.5-10.1); CARBON DIOXIDE LEVEL 29 MEQ/L (21-32); CHLORIDE LEVEL 109 MEQ/L (98-107); CREATININE FOR GFR 0.93 MG/DL (0.70-1.30); GLOMERULAR FILTRATION RATE > 60.0 (>56); GLUCOSE, FASTING 118 MG/DL (70-100); POTASSIUM SERUM 4.3 MEQ/L (3.5-5.1); SODIUM LEVEL 142 MEQ/L (136-145); TOTAL PROTEIN 6.8 GM/DL (6.4-8.2)
[2021-03-17 13:48] LABS: ERYTHROCYTE SEDIMENTATION RATE 9 mm/hr (0-20)
== END ==
LOC: M SFHCADAM 10:43
PROVIDERS: ATTEND Internal Medicine
DX: M45.0 Ankylosing spondylitis of multiple sites in spine (principal)

== ENCOUNTER 2021-03-29 07:20 | Outpatient (CLI) | payer BC ==
[~2021-03-29] VITALS: Ht 177.8 cm; Wt 140.0 kg
[~2021-03-29 07:20] MED LIST changes: +ALBUTEROL SULFATE 2.5 MG/0.5 ML INH NEB SOLN INH PRN; +EPINEPHrine INJ 1 MG/ML 1ML AMP IM PRN; +diphenhydrAMINE 50MG/ML VIAL (J1200) IV PRN; +methylPREDNISolone 125MG 2ML VIAL IV PRN
[2021-03-29] MEDS ORDERED: INFLIXIMAB IV ONE (07:30)
[2021-03-29] MEDS ORDERED: NS IV ONE (07:30)
[2021-03-29] MEDS ORDERED: NS 1,000 ML IV SCH (07:30)
[2021-03-29 07:31] VITALS: BP 158/79
[2021-03-29 08:00] VITALS: BP 158/79
[2021-03-29 08:20] VITALS: BP 138/60
[2021-03-29 09:10] VITALS: BP 119/63
== END 2021-03-29 09:10 | disposition home or self-care (01) ==
LOC: M INFU 07:20
PROVIDERS: ATTEND Internal Medicine
DX: M45.0 Ankylosing spondylitis of multiple sites in spine (principal); Z91.048 Other nonmedicinal substance allergy status
CPT/HCPCS: 96413; 96415; J1745

== ENCOUNTER → 2021-04-13 | Outpatient (REF) | payer BC ==
[~2021-04-13] MED LIST changes: -ALBUTEROL SULFATE 2.5 MG/0.5 ML INH NEB SOLN INH PRN; -EPINEPHrine INJ 1 MG/ML 1ML AMP IM PRN; -diphenhydrAMINE 50MG/ML VIAL (J1200) IV PRN; -methylPREDNISolone 125MG 2ML VIAL IV PRN
[2021-04-13 17:14] LABS: ALBUMIN 3.7 GM/DL (3.2-5.2); ALT/SGPT 94 U/L (12-78); BILIRUBIN,DIRECT 0.3 MG/DL (0.0-0.2); BILIRUBIN,TOTAL 1.2 MG/DL (0.2-1.0); BLOOD UREA NITROGEN 17 MG/DL (7-18); CALCIUM LEVEL 8.3 MG/DL (8.5-10.1); CARBON DIOXIDE LEVEL 30 MEQ/L (21-32); CHLORIDE LEVEL 108 MEQ/L (98-107); CREATININE FOR GFR 0.89 MG/DL (0.70-1.30); GLOMERULAR FILTRATION RATE > 60.0 (>56); GLUCOSE, FASTING 140 MG/DL (70-100); POTASSIUM SERUM 4.8 MEQ/L (3.5-5.1); SODIUM LEVEL 141 MEQ/L (136-145)
[2021-04-13 17:19] LABS: BASO % 0.3 % (0.0-1.0); EOS # 0.3 10^3/uL (0.0-0.5); EOS % 4.2 % (0.0-3.0); HEMATOCRIT 45.6 % (42.0-52.0); HEMOGLOBIN 15.3 g/dl (13.5-17.5); LYMPH # 2.4 10^3/uL (1.5-5.0); LYMPH % 34.1 % (24.0-44.0); MEAN CORPUSCULAR HGB CONC 33.6 g/dl (32.0-36.5); MEAN CORPUSCULAR VOLUME 98.3 fl (80.0-96.0); MONO # 0.4 10^3/uL (0.0-0.8); MONO % 6.3 % (2.0-8.0); NEUTROPHILS # 3.8 10^3/uL (1.5-8.5); NEUTROPHILS % 54.7 % (36.0-66.0); PLATELET COUNT, AUTOMATED 181 10^3/uL (150-450); RED BLOOD COUNT 4.64 10^6/uL (4.30-6.10); WHITE BLOOD COUNT 6.9 10^3/uL (4.0-10.0)
[2021-04-13 17:52] LABS: ERYTHROCYTE SEDIMENTATION RATE 10 mm/hr (0-20)
== END ==
LOC: M SFHCRHEU 10:49
PROVIDERS: ATTEND Internal Medicine
DX: M45.0 Ankylosing spondylitis of multiple sites in spine (principal)

== ENCOUNTER → 2021-05-03 | Outpatient (REF) | payer BC | LOC: M LAB REF 13:27 | PROVIDERS: ATTEND Nurse Practitioner Adult Health | DX: M45.0 Ankylosing spondylitis of multiple sites in spine (principal) ==

== ENCOUNTER 2021-05-10 08:33 | Outpatient (CLI) | payer BC ==
[~2021-05-10] VITALS: Ht 177.8 cm; Wt 140.0 kg
[~2021-05-10 08:33] MED LIST changes: +ALBUTEROL SULFATE 2.5 MG/0.5 ML INH NEB SOLN INH PRN; +EPINEPHrine INJ 1 MG/ML 1ML AMP IM PRN; +INFLIXIMAB IV ONE; +NS IV ONE; +diphenhydrAMINE 50MG/ML VIAL (J1200) IV PRN; +methylPREDNISolone 125MG 2ML VIAL IV PRN
[2021-05-10 08:45] VITALS: BP 128/64
[2021-05-10 09:25] VITALS: BP 150/79
[2021-05-10 10:10] VITALS: BP 148/80
== END 2021-05-10 10:25 | disposition home or self-care (01) ==
LOC: M INFU 08:33
PROVIDERS: ATTEND Internal Medicine
DX: M45.0 Ankylosing spondylitis of multiple sites in spine (principal); Z91.048 Other nonmedicinal substance allergy status
CPT/HCPCS: 96365; J1745

== ENCOUNTER 2021-06-21 08:04 | Outpatient (CLI) | payer BC ==
[~2021-06-21] VITALS: Ht 177.8 cm; Wt 140.0 kg
[~2021-06-21 08:04] MED LIST changes: -INFLIXIMAB IV ONE; -NS IV ONE
[2021-06-21 08:25] VITALS: BP 159/77
[2021-06-21] MEDS ORDERED: NS IV ONE (08:30)
[2021-06-21] MEDS ORDERED: INFLIXIMAB IV ONE (08:30)
[2021-06-21 10:40] VITALS: BP 135/73
== END 2021-06-21 10:45 | disposition home or self-care (01) ==
LOC: M INFU 08:04
PROVIDERS: ATTEND Internal Medicine
DX: M45.0 Ankylosing spondylitis of multiple sites in spine (principal)
CPT/HCPCS: 96413; J1745

== ENCOUNTER → 2021-07-13 | Outpatient (REF) | payer BC ==
[~2021-07-13] MED LIST changes: -ALBUTEROL SULFATE 2.5 MG/0.5 ML INH NEB SOLN INH PRN; -EPINEPHrine INJ 1 MG/ML 1ML AMP IM PRN; -diphenhydrAMINE 50MG/ML VIAL (J1200) IV PRN; -methylPREDNISolone 125MG 2ML VIAL IV PRN
[2021-07-13 17:01] LABS: BASO % 0.3 % (0.0-1.0); EOS # 0.4 10^3/uL (0.0-0.5); EOS % 5.6 % (0.0-3.0); HEMATOCRIT 45.6 % (42.0-52.0); LYMPH # 2.5 10^3/uL (1.5-5.0); LYMPH % 37.1 % (24.0-44.0); MEAN CORPUSCULAR HEMOGLOBIN 33.8 pg (27.0-33.0); MEAN CORPUSCULAR HGB CONC 35.1 g/dl (32.0-36.5); MEAN CORPUSCULAR VOLUME 96.2 fl (80.0-96.0); MONO # 0.5 10^3/uL (0.0-0.8); MONO % 7.8 % (2.0-8.0); NEUTROPHILS # 3.2 10^3/uL (1.5-8.5); NEUTROPHILS % 48.9 % (36.0-66.0); PLATELET COUNT, AUTOMATED 194 10^3/uL (150-450); RED BLOOD COUNT 4.74 10^6/uL (4.30-6.10); WHITE BLOOD COUNT 6.6 10^3/uL (4.0-10.0)
[2021-07-13 17:30] LABS: ALBUMIN 3.6 GM/DL (3.2-5.2); ALT/SGPT 113 U/L (12-78); BILIRUBIN,DIRECT 0.2 MG/DL (0.0-0.2); BLOOD UREA NITROGEN 17 MG/DL (7-18); CALCIUM LEVEL 9.1 MG/DL (8.5-10.1); CARBON DIOXIDE LEVEL 30 MEQ/L (21-32); CHLORIDE LEVEL 108 MEQ/L (98-107); CREATININE FOR GFR 1.08 MG/DL (0.70-1.30); GLOMERULAR FILTRATION RATE > 60.0 (>56); GLUCOSE, FASTING 88 MG/DL (70-100); POTASSIUM SERUM 4.2 MEQ/L (3.5-5.1); SODIUM LEVEL 143 MEQ/L (136-145); TOTAL PROTEIN 7.2 GM/DL (6.4-8.2)
[2021-07-13 17:55] LABS: ERYTHROCYTE SEDIMENTATION RATE 12 mm/hr (0-20)
== END ==
LOC: M SFHCADAM 14:24
PROVIDERS: ATTEND Internal Medicine
DX: M45.0 Ankylosing spondylitis of multiple sites in spine (principal)

== ENCOUNTER 2021-08-02 08:02 | Outpatient (CLI) | payer BC ==
[~2021-08-02] VITALS: Ht 177.8 cm; Wt 134.0 kg
[~2021-08-02 08:02] MED LIST changes: +ALBUTEROL SULFATE 2.5 MG/0.5 ML INH NEB SOLN INH PRN; +EPINEPHrine INJ 1 MG/ML 1ML AMP IM PRN; +diphenhydrAMINE 50MG/ML VIAL (J1200) IV PRN; +methylPREDNISolone 125MG 2ML VIAL IV PRN
[2021-08-02] MEDS ORDERED: INFLIXIMAB IV ONE (08:30)
[2021-08-02] MEDS ORDERED: NS 1,000 ML IV SCH (08:30)
[2021-08-02] MEDS ORDERED: NS IV ONE (08:30)
[2021-08-02 10:10] VITALS: BP 141/79
[2021-08-02 11:00] VITALS: BP 140/65
== END 2021-08-02 11:05 | disposition home or self-care (01) ==
LOC: M INFU 08:02
PROVIDERS: ATTEND Internal Medicine
DX: M45.0 Ankylosing spondylitis of multiple sites in spine (principal); Z88.9 Allergy status to unspecified drugs, medicaments and biological substances
CPT/HCPCS: 96413; J1745

== ENCOUNTER → 2021-08-08 | Outpatient (REF) | payer BC ==
[~2021-08-08] MED LIST changes: -ALBUTEROL SULFATE 2.5 MG/0.5 ML INH NEB SOLN INH PRN; -EPINEPHrine INJ 1 MG/ML 1ML AMP IM PRN; -diphenhydrAMINE 50MG/ML VIAL (J1200) IV PRN; -methylPREDNISolone 125MG 2ML VIAL IV PRN
[2021-08-08 16:44] LABS: BASO % 0.3 % (0.0-1.0); EOS # 0.4 10^3/uL (0.0-0.5); EOS % 6.5 % (0.0-3.0); HEMOGLOBIN 15.7 g/dl (13.5-17.5); LYMPH # 2.5 10^3/uL (1.5-5.0); LYMPH % 40.1 % (24.0-44.0); MEAN CORPUSCULAR HEMOGLOBIN 33.4 pg (27.0-33.0); MEAN CORPUSCULAR HGB CONC 34.1 g/dl (32.0-36.5); MEAN CORPUSCULAR VOLUME 97.9 fl (80.0-96.0); MONO # 0.4 10^3/uL (0.0-0.8); MONO % 5.8 % (2.0-8.0); PLATELET COUNT, AUTOMATED 192 10^3/uL (150-450); WHITE BLOOD COUNT 6.3 10^3/uL (4.0-10.0)
[2021-08-08 16:51] LABS: ALBUMIN 3.7 GM/DL (3.2-5.2); ALT/SGPT 113 U/L (12-78); BILIRUBIN,DIRECT 0.3 MG/DL (0.0-0.2); BILIRUBIN,TOTAL 0.9 MG/DL (0.2-1.0); BLOOD UREA NITROGEN 20 MG/DL (7-18); CALCIUM LEVEL 9.2 MG/DL (8.5-10.1); CARBON DIOXIDE LEVEL 30 MEQ/L (21-32); CHLORIDE LEVEL 108 MEQ/L (98-107); GLOMERULAR FILTRATION RATE > 60.0 (>56); GLUCOSE, FASTING 143 MG/DL (70-100); POTASSIUM SERUM 4.4 MEQ/L (3.5-5.1); SODIUM LEVEL 142 MEQ/L (136-145); TOTAL PROTEIN 7.2 GM/DL (6.4-8.2)
[2021-08-08 18:28] LABS: ERYTHROCYTE SEDIMENTATION RATE 11 mm/hr (0-20)
== END ==
LOC: M SFHCRHEU 12:02
PROVIDERS: ATTEND Internal Medicine
DX: M45.0 Ankylosing spondylitis of multiple sites in spine (principal)

== ENCOUNTER 2021-09-13 08:26 | Outpatient (CLI) | payer BC ==
[~2021-09-13] VITALS: Ht 177.8 cm; Wt 139.5 kg
[~2021-09-13 08:26] MED LIST changes: +ALBUTEROL SULFATE 2.5 MG/0.5 ML INH NEB SOLN INH PRN; +EPINEPHrine INJ 1 MG/ML 1ML AMP IM PRN; +diphenhydrAMINE 50MG/ML VIAL (J1200) IV PRN; +methylPREDNISolone 125MG 2ML VIAL IV PRN
[2021-09-13] MEDS ORDERED: NS IV ONE (08:30)
[2021-09-13] MEDS ORDERED: INFLIXIMAB IV ONE (08:30)
[2021-09-13 08:43] VITALS: BP 141/76
[2021-09-13 09:45] VITALS: BP 133/63
[2021-09-13 10:33] VITALS: BP 149/76
== END 2021-09-13 10:40 | disposition home or self-care (01) ==
LOC: M INFU 08:26
PROVIDERS: ATTEND Internal Medicine
DX: M45.0 Ankylosing spondylitis of multiple sites in spine (principal)
CPT/HCPCS: 96413; J1745

== ENCOUNTER → 2021-09-14 | Outpatient (REF) | payer BC ==
[~2021-09-14] MED LIST changes: -ALBUTEROL SULFATE 2.5 MG/0.5 ML INH NEB SOLN INH PRN; -EPINEPHrine INJ 1 MG/ML 1ML AMP IM PRN; -diphenhydrAMINE 50MG/ML VIAL (J1200) IV PRN; -methylPREDNISolone 125MG 2ML VIAL IV PRN
[2021-09-14 16:45] LABS: BASO % 0.4 % (0.0-1.0); EOS # 0.4 10^3/uL (0.0-0.5); EOS % 5.6 % (0.0-3.0); HEMATOCRIT 44.9 % (42.0-52.0); HEMOGLOBIN 15.5 g/dl (13.5-17.5); LYMPH # 2.7 10^3/uL (1.5-5.0); LYMPH % 34.9 % (24.0-44.0); MEAN CORPUSCULAR HEMOGLOBIN 33.5 pg (27.0-33.0); MEAN CORPUSCULAR HGB CONC 34.5 g/dl (32.0-36.5); MONO # 0.7 10^3/uL (0.0-0.8); MONO % 8.9 % (2.0-8.0); NEUTROPHILS # 3.8 10^3/uL (1.5-8.5); NEUTROPHILS % 49.8 % (36.0-66.0); PLATELET COUNT, AUTOMATED 190 10^3/uL (150-450); RED BLOOD COUNT 4.63 10^6/uL (4.30-6.10); WHITE BLOOD COUNT 7.7 10^3/uL (4.0-10.0)
[2021-09-14 17:13] LABS: ALBUMIN 3.6 GM/DL (3.2-5.2); BILIRUBIN,DIRECT 0.2 MG/DL (0.0-0.2); BILIRUBIN,TOTAL 0.9 MG/DL (0.2-1.0); C REACTIVE PROTEIN QUANTITATIV 0.3 MG/DL (0.00-0.30); CALCIUM LEVEL 8.6 MG/DL (8.5-10.1); CREATININE FOR GFR 1.51 MG/DL (0.70-1.30); GLOMERULAR FILTRATION RATE 50.6 (>56); POTASSIUM SERUM 4.4 MEQ/L (3.5-5.1)
[2021-09-14 18:10] LABS: ERYTHROCYTE SEDIMENTATION RATE 9 mm/hr (0-20)
== END ==
LOC: M SFHCADAM 14:02
PROVIDERS: ATTEND Internal Medicine
DX: M45.0 Ankylosing spondylitis of multiple sites in spine (principal)

== ENCOUNTER 2021-10-25 07:41 | Outpatient (CLI) | payer BC ==
[~2021-10-25] VITALS: Ht 177.8 cm; Wt 139.5 kg
[~2021-10-25 07:41] MED LIST changes: +ALBUTEROL SULFATE 2.5 MG/0.5 ML INH NEB SOLN INH PRN; +EPINEPHrine INJ 1 MG/ML 1ML AMP IM PRN; +diphenhydrAMINE 50MG/ML VIAL (J1200) IV PRN; +methylPREDNISolone 125MG 2ML VIAL IV PRN
[2021-10-25 07:50] VITALS: BP 138/72
[2021-10-25] MEDS ORDERED: NS IV ONE (08:30)
[2021-10-25] MEDS ORDERED: INFLIXIMAB IV ONE (08:30)
[2021-10-25 10:16] VITALS: BP 165/79
== END 2021-10-25 10:20 | disposition home or self-care (01) ==
LOC: M INFU 07:41
PROVIDERS: ATTEND Internal Medicine
DX: M45.0 Ankylosing spondylitis of multiple sites in spine (principal)
CPT/HCPCS: 96413; J1745

== ENCOUNTER → 2021-10-25 | Outpatient (REF) | payer BC ==
[~2021-10-25] MED LIST changes: -LEVO500T3 PO; +LEVO500T4 PO
[2021-10-25 16:55] LABS: BASO % 0.5 % (0.0-1.0); EOS # 0.4 10^3/uL (0.0-0.5); EOS % 5.5 % (0.0-3.0); HEMATOCRIT 45.2 % (42.0-52.0); HEMOGLOBIN 15.2 g/dl (13.5-17.5); LYMPH # 2.5 10^3/uL (1.5-5.0); LYMPH % 33.1 % (24.0-44.0); MEAN CORPUSCULAR HEMOGLOBIN 33.1 pg (27.0-33.0); MEAN CORPUSCULAR HGB CONC 33.6 g/dl (32.0-36.5); MEAN CORPUSCULAR VOLUME 98.5 fl (80.0-96.0); MONO # 0.5 10^3/uL (0.0-0.8); MONO % 6.8 % (2.0-8.0); NEUTROPHILS # 4.1 10^3/uL (1.5-8.5); NEUTROPHILS % 53.8 % (36.0-66.0); PLATELET COUNT, AUTOMATED 190 10^3/uL (150-450); RED BLOOD COUNT 4.59 10^6/uL (4.30-6.10); WHITE BLOOD COUNT 7.5 10^3/uL (4.0-10.0)
[2021-10-25 17:21] LABS: ALBUMIN 3.6 GM/DL (3.2-5.2); ALT/SGPT 86 U/L (12-78); BILIRUBIN,DIRECT 0.2 MG/DL (0.0-0.2); BILIRUBIN,TOTAL 0.7 MG/DL (0.2-1.0); BLOOD UREA NITROGEN 18 MG/DL (7-18); CALCIUM LEVEL 8.7 MG/DL (8.5-10.1); CARBON DIOXIDE LEVEL 30 MEQ/L (21-32); CHLORIDE LEVEL 107 MEQ/L (98-107); CREATININE FOR GFR 1.19 MG/DL (0.70-1.30); GLOMERULAR FILTRATION RATE > 60.0 (>56); GLUCOSE, FASTING 134 MG/DL (70-100); POTASSIUM SERUM 4.5 MEQ/L (3.5-5.1); SODIUM LEVEL 141 MEQ/L (136-145); TOTAL PROTEIN 6.8 GM/DL (6.4-8.2)
[2021-10-25 17:37] LABS: ERYTHROCYTE SEDIMENTATION RATE 9 mm/hr (0-20)
== END ==
LOC: M SFHCADAM 14:54
PROVIDERS: ATTEND Internal Medicine
DX: M45.0 Ankylosing spondylitis of multiple sites in spine (principal)

== ENCOUNTER 2021-12-06 08:00 | Outpatient (CLI) | payer BC ==
[~2021-12-06] VITALS: Ht 177.8 cm; Wt 139.5 kg
[~2021-12-06 08:00] MED LIST changes: +ALBUTEROL SULFATE 2.5 MG/0.5 ML INH NEB SOLN INH PRN; +EPINEPHrine INJ 1 MG/ML 1ML AMP IM PRN; +diphenhydrAMINE 50MG/ML VIAL (J1200) IV PRN; +methylPREDNISolone 125MG 2ML VIAL IV PRN
[2021-12-06 08:05] VITALS: BP 128/64
[2021-12-06] MEDS ORDERED: NS IV ONE (08:30)
[2021-12-06] MEDS ORDERED: INFLIXIMAB IV ONE (08:30)
[2021-12-06] MEDS ORDERED: NS 1,000 ML IV SCH (08:30)
[2021-12-06 09:25] VITALS: BP 119/58
[2021-12-06 10:10] VITALS: BP 141/64
== END 2021-12-06 10:15 | disposition home or self-care (01) ==
LOC: M INFU 08:00
PROVIDERS: ATTEND Internal Medicine
DX: M45.0 Ankylosing spondylitis of multiple sites in spine (principal)
CPT/HCPCS: 96413; J1745

== ENCOUNTER → 2021-12-06 | Outpatient (REF) | payer BC ==
[~2021-12-06] MED LIST changes: -ALBUTEROL SULFATE 2.5 MG/0.5 ML INH NEB SOLN INH PRN; -EPINEPHrine INJ 1 MG/ML 1ML AMP IM PRN; -diphenhydrAMINE 50MG/ML VIAL (J1200) IV PRN; -methylPREDNISolone 125MG 2ML VIAL IV PRN
[2021-12-06 16:03] LABS: BASO % 0.4 % (0.0-1.0); EOS # 0.4 10^3/uL (0.0-0.5); EOS % 5.5 % (0.0-3.0); HEMATOCRIT 44.5 % (42.0-52.0); HEMOGLOBIN 15.6 g/dl (13.5-17.5); LYMPH # 2.8 10^3/uL (1.5-5.0); LYMPH % 36.9 % (24.0-44.0); MEAN CORPUSCULAR HEMOGLOBIN 33.5 pg (27.0-33.0); MEAN CORPUSCULAR HGB CONC 35.1 g/dl (32.0-36.5); MEAN CORPUSCULAR VOLUME 95.7 fl (80.0-96.0); MONO # 0.4 10^3/uL (0.0-0.8); MONO % 5.8 % (2.0-8.0); NEUTROPHILS # 3.9 10^3/uL (1.5-8.5); NEUTROPHILS % 51.1 % (36.0-66.0); PLATELET COUNT, AUTOMATED 184 10^3/uL (150-450); RED BLOOD COUNT 4.65 10^6/uL (4.30-6.10); WHITE BLOOD COUNT 7.6 10^3/uL (4.0-10.0)
[2021-12-06 16:26] LABS: ALBUMIN 3.7 GM/DL (3.2-5.2); ALT/SGPT 114 U/L (12-78); BILIRUBIN,DIRECT 0.2 MG/DL (0.0-0.2); BILIRUBIN,TOTAL 0.6 MG/DL (0.2-1.0); BLOOD UREA NITROGEN 18 MG/DL (7-18); CALCIUM LEVEL 8.6 MG/DL (8.5-10.1); CARBON DIOXIDE LEVEL 30 MEQ/L (21-32); CHLORIDE LEVEL 109 MEQ/L (98-107); CREATININE FOR GFR 1.07 MG/DL (0.70-1.30); GLOMERULAR FILTRATION RATE > 60.0 (>56); GLUCOSE, FASTING 158 MG/DL (70-100); POTASSIUM SERUM 4.8 MEQ/L (3.5-5.1); SODIUM LEVEL 143 MEQ/L (136-145); TOTAL PROTEIN 6.8 GM/DL (6.4-8.2)
[2021-12-06 16:40] LABS: ERYTHROCYTE SEDIMENTATION RATE 9 mm/hr (0-20)
== END ==
LOC: M SFHCADAM 13:21
PROVIDERS: ATTEND Internal Medicine
DX: M45.0 Ankylosing spondylitis of multiple sites in spine (principal)

== ENCOUNTER → 2021-12-06 | Outpatient (REF) | payer BC | LOC: M LAB REF 15:56 | PROVIDERS: ATTEND Nurse Practitioner Adult Health | DX: E29.1 Testicular hypofunction (principal) ==

== ENCOUNTER 2022-01-17 08:11 | Outpatient (CLI) | payer BC ==
[~2022-01-17] VITALS: Ht 177.8 cm; Wt 139.5 kg
[2022-01-17 08:15] VITALS: BP 122/61
[2022-01-17] MEDS ORDERED: INFLIXIMAB IV ONE (08:30)
[2022-01-17] MEDS ORDERED: NS IV ONE (08:30)
[2022-01-17] MEDS ORDERED: NS 1,000 ML IV SCH (08:30)
[2022-01-17 09:20] VITALS: BP 148/74
[2022-01-17 09:45] VITALS: BP 111/55
[2022-01-17 10:19] VITALS: BP 120/64
== END 2022-01-17 10:20 | disposition home or self-care (01) ==
LOC: M INFU 08:11
PROVIDERS: ATTEND Internal Medicine
DX: M45.0 Ankylosing spondylitis of multiple sites in spine (principal); Z91.048 Other nonmedicinal substance allergy status
CPT/HCPCS: 96413; J1745

== ENCOUNTER → 2022-02-06 | Outpatient (REF) | payer BC ==
[~2022-02-06] MED LIST changes: -ALBUTEROL SULFATE 2.5 MG/0.5 ML INH NEB SOLN INH PRN; -EPINEPHrine INJ 1 MG/ML 1ML AMP IM PRN; -diphenhydrAMINE 50MG/ML VIAL (J1200) IV PRN; -methylPREDNISolone 125MG 2ML VIAL IV PRN
[2022-02-06 13:48] LABS: BASO % 0.3 % (0.0-1.0); EOS # 0.3 10^3/uL (0.0-0.5); EOS % 5.3 % (0.0-3.0); HEMOGLOBIN 14.8 g/dl (13.5-17.5); LYMPH # 2.1 10^3/uL (1.5-5.0); LYMPH % 34.3 % (24.0-44.0); MEAN CORPUSCULAR HEMOGLOBIN 33.2 pg (27.0-33.0); MEAN CORPUSCULAR HGB CONC 34.4 g/dl (32.0-36.5); MEAN CORPUSCULAR VOLUME 96.4 fl (80.0-96.0); MONO # 0.4 10^3/uL (0.0-0.8); MONO % 5.8 % (2.0-8.0); NEUTROPHILS # 3.3 10^3/uL (1.5-8.5); PLATELET COUNT, AUTOMATED 168 10^3/uL (150-450); RED BLOOD COUNT 4.46 10^6/uL (4.30-6.10)
[2022-02-06 14:16] LABS: ALBUMIN 3.5 GM/DL (3.2-5.2); ALT/SGPT 78 U/L (12-78); BILIRUBIN,DIRECT 0.3 MG/DL (0.0-0.2); BLOOD UREA NITROGEN 17 MG/DL (7-18); CALCIUM LEVEL 8.9 MG/DL (8.8-10.2); CARBON DIOXIDE LEVEL 30 MEQ/L (21-32); CHLORIDE LEVEL 108 MEQ/L (98-107); CREATININE FOR GFR 1.04 MG/DL (0.70-1.30); GLOMERULAR FILTRATION RATE > 60.0 (>49); GLUCOSE, FASTING 174 MG/DL (70-100); POTASSIUM SERUM 4.4 MEQ/L (3.5-5.1); SODIUM LEVEL 141 MEQ/L (136-145); TOTAL PROTEIN 6.6 GM/DL (6.4-8.2)
[2022-02-06 14:30] LABS: ERYTHROCYTE SEDIMENTATION RATE 15 mm/hr (0-20)
== END ==
LOC: M SFHCRHEU 11:08
PROVIDERS: ATTEND Internal Medicine
DX: M45.0 Ankylosing spondylitis of multiple sites in spine (principal)

== ENCOUNTER 2022-02-28 08:13 | Outpatient (CLI) | payer BC ==
[~2022-02-28] VITALS: Ht 177.8 cm; Wt 136.3 kg
[~2022-02-28 08:13] MED LIST changes: +ALBUTEROL SULFATE 2.5 MG/0.5 ML INH NEB SOLN INH PRN; +EPINEPHrine INJ 1 MG/ML 1ML AMP IM PRN; +diphenhydrAMINE 50MG/ML VIAL (J1200) IV PRN; +methylPREDNISolone 125MG 2ML VIAL IV PRN
[2022-02-28 08:15] VITALS: BP 138/80
[2022-02-28] MEDS ORDERED: INFLIXIMAB IV ONE (08:30)
[2022-02-28] MEDS ORDERED: NS IV ONE (08:30)
[2022-02-28 09:30] VITALS: BP 138/80
[2022-02-28 09:35] VITALS: BP 125/73
[2022-02-28 10:25] VITALS: BP 143/65
== END 2022-02-28 10:25 | disposition home or self-care (01) ==
LOC: M INFU 08:13
PROVIDERS: ATTEND Internal Medicine
DX: M45.0 Ankylosing spondylitis of multiple sites in spine (principal); Z91.048 Other nonmedicinal substance allergy status
CPT/HCPCS: 96413; J1745

== ENCOUNTER → 2022-04-09 | Outpatient (CLI) | payer BC ==
[~2022-04-09] MED LIST changes: -ALBUTEROL SULFATE 2.5 MG/0.5 ML INH NEB SOLN INH PRN; +ECOT81TA5 PO; -EPINEPHrine INJ 1 MG/ML 1ML AMP IM PRN; +NABU-71; +OXYB-54; +OXYB5TAB10; +OZEM2INJ; +TEST75GE; +VITA100093 PO; +VITMTA PO; -diphenhydrAMINE 50MG/ML VIAL (J1200) IV PRN; -methylPREDNISolone 125MG 2ML VIAL IV PRN
== END ==
LOC: M LABSMTC 09:58
PROVIDERS: ATTEND Anesthesiology
DX: Z01.812 Encounter for preprocedural laboratory examination (principal)

== ENCOUNTER 2022-04-13 08:40 | Day surgery (SDC) | payer BC ==
[~2022-04-13] VITALS: Ht 177.8 cm; Wt 131.1 kg
[~2022-04-13 08:40] MED LIST changes: +NS 1,000 ML IV ONE
[2022-04-13] MEDS ORDERED: propofoL 200 MG/20 ML VIAL As Ordered ONE (08:46)
[2022-04-13] MEDS ORDERED: LIDOCAINE 2% 100MG/5ML SDV (FOR ANES.) As Ordered ONE (08:46)
[2022-04-13 10:34] VITALS: BP 142/77
== END 2022-04-13 10:36 | disposition home or self-care (01) ==
LOC: M OPP 08:40
PROVIDERS: ATTEND Internal Medicine Gastroenterology
DX: Z12.11 Encounter for screening for malignant neoplasm of colon (principal); Z86.010 Personal history of colon polyps; K57.30 Diverticulosis of large intestine without perforation or abscess without bleeding; K64.0 First degree hemorrhoids; I10 Essential (primary) hypertension; E11.9 Type 2 diabetes mellitus without complications; G47.30 Sleep apnea, unspecified; Z79.82 Long term (current) use of aspirin; Z79.84 Long term (current) use of oral hypoglycemic drugs; Z79.899 Other long term (current) drug therapy; Z98.84 Bariatric surgery status; Z91.030 Bee allergy status; Z91.048 Other nonmedicinal substance allergy status; Z99.89 Dependence on other enabling machines and devices; Z86.14 Personal history of Methicillin resistant Staphylococcus aureus infection; Z87.442 Personal history of urinary calculi

== ENCOUNTER 2022-04-18 07:00 | Outpatient (CLI) | payer BC ==
[~2022-04-18] VITALS: Ht 177.8 cm; Wt 136.3 kg
[~2022-04-18 07:00] MED LIST changes: +LEVO1TAB39 PO; -LEVO500T4 PO; -NS 1,000 ML IV ONE; +SIMV-253 PO; -ZOCO20TA PO
[2022-04-18] MEDS ORDERED: diphenhydrAMINE 50MG/ML VIAL (J1200) IV PRN (07:01)
[2022-04-18] MEDS ORDERED: EPINEPHrine INJ 1 MG/ML 1ML AMP IM PRN (07:01)
[2022-04-18] MEDS ORDERED: methylPREDNISolone 125MG 2ML VIAL IV PRN (07:01)
[2022-04-18] MEDS ORDERED: ALBUTEROL SULFATE 2.5 MG/0.5 ML INH NEB SOLN INH PRN (07:01)
[2022-04-18 12:00] VITALS: BP 137/65
[2022-04-18] MEDS ORDERED: NS IV ONE (12:00)
[2022-04-18] MEDS ORDERED: INFLIXIMAB IV ONE (12:00)
[2022-04-18 13:15] VITALS: BP 105/51
[2022-04-18 14:05] VITALS: BP 131/62
== END 2022-04-18 14:05 | disposition home or self-care (01) ==
LOC: M INFU 07:00
PROVIDERS: ATTEND Internal Medicine
DX: M45.0 Ankylosing spondylitis of multiple sites in spine (principal)
CPT/HCPCS: 96413; J1745

== ENCOUNTER → 2022-05-11 | Outpatient (REF) | payer BC ==
[2022-05-11 16:47] LABS: BASO % 0.3 % (0.0-1.0); EOS # 0.3 10^3/uL (0.0-0.5); EOS % 3.8 % (0.0-3.0); HEMATOCRIT 42.9 % (42.0-52.0); HEMOGLOBIN 14.7 g/dl (13.5-17.5); LYMPH # 2.4 10^3/uL (1.5-5.0); LYMPH % 35.3 % (24.0-44.0); MEAN CORPUSCULAR HEMOGLOBIN 33.4 pg (27.0-33.0); MEAN CORPUSCULAR HGB CONC 34.3 g/dl (32.0-36.5); MEAN CORPUSCULAR VOLUME 97.5 fl (80.0-96.0); MONO # 0.4 10^3/uL (0.0-0.8); MONO % 6.3 % (2.0-8.0); NEUTROPHILS # 3.7 10^3/uL (1.5-8.5); NEUTROPHILS % 53.9 % (36.0-66.0); PLATELET COUNT, AUTOMATED 190 10^3/uL (150-450); WHITE BLOOD COUNT 6.9 10^3/uL (4.0-10.0)
[2022-05-11 17:22] LABS: ALBUMIN 3.6 GM/DL (3.2-5.2); ALT/SGPT 71 U/L (12-78); BILIRUBIN,DIRECT 0.3 MG/DL (0.0-0.2); BILIRUBIN,TOTAL 1.1 MG/DL (0.2-1.0); BLOOD UREA NITROGEN 17 MG/DL (7-18); CALCIUM LEVEL 8.6 MG/DL (8.8-10.2); CARBON DIOXIDE LEVEL 29 MEQ/L (21-32); CHLORIDE LEVEL 109 MEQ/L (98-107); CREATININE FOR GFR 1.08 MG/DL (0.70-1.30); GLOMERULAR FILTRATION RATE > 60.0 (>49); GLUCOSE, FASTING 108 MG/DL (70-100); POTASSIUM SERUM 3.9 MEQ/L (3.5-5.1); SODIUM LEVEL 141 MEQ/L (136-145); TOTAL PROTEIN 6.9 GM/DL (6.4-8.2)
[2022-05-11 17:44] LABS: ERYTHROCYTE SEDIMENTATION RATE 10 mm/hr (0-20)
== END ==
LOC: M SFHCRHEU 13:00
PROVIDERS: ATTEND Internal Medicine
DX: M45.0 Ankylosing spondylitis of multiple sites in spine (principal)

== ENCOUNTER 2022-06-13 11:35 | Outpatient (CLI) | payer BC ==
[~2022-06-13] VITALS: Ht 177.8 cm; Wt 129.0 kg
[2022-06-13 11:35] VITALS: BP 114/56
[~2022-06-13 11:35] MED LIST changes: +ALBUTEROL SULFATE 2.5 MG/0.5 ML INH NEB SOLN INH PRN; +EPINEPHrine INJ 1 MG/ML 1ML AMP IM PRN; +diphenhydrAMINE 50MG/ML VIAL (J1200) IV PRN; +methylPREDNISolone 125MG 2ML VIAL IV PRN
[2022-06-13] MEDS ORDERED: NS IV ONE (12:00)
[2022-06-13] MEDS ORDERED: INFLIXIMAB IV ONE (12:00)
[2022-06-13 12:36] VITALS: BP 128/58
[2022-06-13 13:24] VITALS: BP 128/59
== END 2022-06-13 13:25 | disposition home or self-care (01) ==
LOC: M INFU 11:35
PROVIDERS: ATTEND Internal Medicine
DX: M45.0 Ankylosing spondylitis of multiple sites in spine (principal)
CPT/HCPCS: 96413; J1745

== ENCOUNTER → 2022-06-27 | Outpatient (CLI) | payer BC ==
[~2022-06-27] MED LIST changes: -ALBUTEROL SULFATE 2.5 MG/0.5 ML INH NEB SOLN INH PRN; -EPINEPHrine INJ 1 MG/ML 1ML AMP IM PRN; -diphenhydrAMINE 50MG/ML VIAL (J1200) IV PRN; -methylPREDNISolone 125MG 2ML VIAL IV PRN
[2022-06-29 20:07] LABS: TESTOSTERONE FREE (DIRECT) 12.4 pg/mL (6.6-18.1)
== END ==
LOC: M WUC 15:02
PROVIDERS: ATTEND Nurse Practitioner Adult Health
DX: E29.1 Testicular hypofunction (principal)

== ENCOUNTER → 2022-06-27 | Outpatient (CLI) | payer BC | LOC: M SLEEP 20:00 | PROVIDERS: ATTEND Nurse Practitioner Family | DX: G47.33 Obstructive sleep apnea (adult) (pediatric) (principal) ==

== ENCOUNTER 2022-07-25 08:25 | Outpatient (CLI) | payer BC ==
[~2022-07-25] VITALS: Ht 177.8 cm; Wt 136.0 kg
[2022-07-25 08:25] VITALS: BP 148/77
[~2022-07-25 08:25] MED LIST changes: -DOXY-350 PO; +DOXY-444 PO
[2022-07-25] MEDS ORDERED: ALBUTEROL SULFATE 2.5 MG/0.5 ML INH NEB SOLN INH PRN (08:30)
[2022-07-25] MEDS ORDERED: diphenhydrAMINE 50MG/ML VIAL (J1200) IV PRN (08:30)
[2022-07-25] MEDS ORDERED: EPINEPHrine INJ 1 MG/ML 1ML AMP IM PRN (08:30)
[2022-07-25] MEDS ORDERED: INFLIXIMAB IV ONE (08:30)
[2022-07-25] MEDS ORDERED: methylPREDNISolone 125MG 2ML VIAL IV PRN (08:30)
[2022-07-25] MEDS ORDERED: NS IV ONE (08:30)
[2022-07-25 09:35] VITALS: BP 136/66
[2022-07-25 10:30] VITALS: BP 131/62
[2022-07-25 11:40] VITALS: BP 151/20
== END 2022-07-25 10:30 | disposition home or self-care (01) ==
LOC: M INFU 08:25
PROVIDERS: ATTEND Internal Medicine
DX: M45.0 Ankylosing spondylitis of multiple sites in spine (principal); Z91.030 Bee allergy status; Z91.048 Other nonmedicinal substance allergy status
CPT/HCPCS: 96413; J1745

== ENCOUNTER 2022-08-02 11:31 | Emergency (ER) | payer BC ==
[2022-08-02 11:34] VITALS: BP 160/70
[2022-08-02] MEDS ORDERED: LIDOCAINE 5% (LIDODERM) PATCH TD ONE (15:10)
[2022-08-02] MEDS ORDERED: diazePAM 10 MG TAB PO ONE (15:10)
[2022-08-02] MEDS ORDERED: KETOROLAC 60MG 2ML VIAL IM ONE (15:10)
[2022-08-02] MEDS ORDERED: METH-1165 PO (18:01)
[2022-08-02] MEDS ORDERED: ASPE4PAD TOP (18:01)
== END 2022-08-02 18:23 | disposition home or self-care (01) ==
LOC: M ED 11:31
DX: M54.50 Low back pain, unspecified (principal); E11.9 Type 2 diabetes mellitus without complications; I10 Essential (primary) hypertension; E78.5 Hyperlipidemia, unspecified; Z79.899 Other long term (current) drug therapy; Z79.890 Hormone replacement therapy; Z79.82 Long term (current) use of aspirin; Z79.84 Long term (current) use of oral hypoglycemic drugs; Z91.048 Other nonmedicinal substance allergy status; Z91.030 Bee allergy status; Z87.442 Personal history of urinary calculi; Z98.84 Bariatric surgery status; Z98.890 Other specified postprocedural states
CPT/HCPCS: 72110; 96372; 99282; J1885

== ENCOUNTER 2022-09-05 08:05 | Outpatient (CLI) | payer BC ==
[~2022-09-05] VITALS: Ht 208.3 cm; Wt 139.0 kg
[2022-09-05 08:05] VITALS: BP 146/73
[~2022-09-05 08:05] MED LIST changes: +ALBUTEROL SULFATE 2.5 MG/0.5 ML INH NEB SOLN INH PRN; +ASPE4PAD TOP; +EPINEPHrine INJ 1 MG/ML 1ML AMP IM PRN; +METH-1165 PO; +diphenhydrAMINE 50MG/ML VIAL IV PRN; +methylPREDNISolone 125MG 2ML VIAL IV PRN
[2022-09-05] MEDS ORDERED: ACETAMINOPHEN 325 MG TAB PO ONE (08:30)
[2022-09-05] MEDS ORDERED: diphenhydrAMINE 50MG PO PRIOR TO INFUSION PO ONE (08:30)
[2022-09-05] MEDS ORDERED: NS IV ONE (08:30)
[2022-09-05] MEDS ORDERED: INFLIXIMAB IV ONE (08:30)
[2022-09-05 09:00] VITALS: BP 132/60
[2022-09-05 09:52] VITALS: BP 138/65
== END 2022-09-05 09:55 | disposition home or self-care (01) ==
LOC: M INFU 08:05
PROVIDERS: ATTEND Internal Medicine
DX: M45.0 Ankylosing spondylitis of multiple sites in spine (principal)
CPT/HCPCS: 96413; J1745

== ENCOUNTER → 2022-10-10 | Outpatient (REF) | payer BC ==
[~2022-10-10] MED LIST changes: -ALBUTEROL SULFATE 2.5 MG/0.5 ML INH NEB SOLN INH PRN; -EPINEPHrine INJ 1 MG/ML 1ML AMP IM PRN; -diphenhydrAMINE 50MG/ML VIAL IV PRN; -methylPREDNISolone 125MG 2ML VIAL IV PRN
== END ==
LOC: M LAB REF 16:16
PROVIDERS: ATTEND Nurse Practitioner Adult Health
DX: M45.0 Ankylosing spondylitis of multiple sites in spine (principal)

== ENCOUNTER 2022-10-17 08:10 | Outpatient (CLI) | payer BC ==
[~2022-10-17] VITALS: Ht 180.3 cm; Wt 139.0 kg
[~2022-10-17 08:10] MED LIST changes: +ALBUTEROL SULFATE 2.5MG/0.5ML INH NEB SOLN INH PRN; +EPINEPHrine INJ 1 MG/ML 1ML AMP IM PRN; +diphenhydrAMINE 50MG/ML VIAL IV PRN; +methylPREDNISolone 125MG 2ML VIAL IV PRN
[2022-10-17 08:29] VITALS: BP 137/74
[2022-10-17] MEDS ORDERED: NS 1,000 ML IV SCH (08:30)
[2022-10-17] MEDS ORDERED: ACETAMINOPHEN 325 MG TAB PO ONE (08:30)
[2022-10-17] MEDS ORDERED: NS IV ONE (08:30)
[2022-10-17] MEDS ORDERED: INFLIXIMAB IV ONE (08:30)
[2022-10-17] MEDS ORDERED: diphenhydrAMINE 50MG CAP PO ONE (08:30)
[2022-10-17 09:50] VITALS: BP 147/71
== END 2022-10-17 09:50 | disposition home or self-care (01) ==
LOC: M INFU 08:10
PROVIDERS: ATTEND Internal Medicine
DX: M45.0 Ankylosing spondylitis of multiple sites in spine (principal)
CPT/HCPCS: 96413; J1745

== ENCOUNTER 2022-11-28 11:10 | Outpatient (CLI) | payer BC ==
[~2022-11-28] VITALS: Ht 180.3 cm; Wt 133.0 kg
[2022-11-28 11:10] VITALS: BP 127/72
[2022-11-28] MEDS ORDERED: ACETAMINOPHEN 650MG PO PRIOR TO INFUSION PO ONE (11:30)
[2022-11-28] MEDS ORDERED: NS IV ONE (11:30)
[2022-11-28] MEDS ORDERED: INFLIXIMAB IV ONE (11:30)
[2022-11-28] MEDS ORDERED: diphenhydrAMINE 50MG PO PRIOR TO INFUSION PO ONE (11:30)
[2022-11-28] MEDS ORDERED: NS 1,000 ML IV SCH (11:30)
[2022-11-28 12:00] VITALS: BP 138/78
[2022-11-28 12:17] VITALS: BP 134/59
[2022-11-28 13:10] VITALS: BP 131/59
== END 2022-11-28 13:05 | disposition home or self-care (01) ==
LOC: M INFU 11:10
PROVIDERS: ATTEND Internal Medicine
DX: M45.0 Ankylosing spondylitis of multiple sites in spine (principal)
CPT/HCPCS: 96413; J1745

== ENCOUNTER → 2022-12-18 | Outpatient (REF) | payer BC ==
[~2022-12-18] MED LIST changes: -ALBUTEROL SULFATE 2.5MG/0.5ML INH NEB SOLN INH PRN; -EPINEPHrine INJ 1 MG/ML 1ML AMP IM PRN; -diphenhydrAMINE 50MG/ML VIAL IV PRN; -methylPREDNISolone 125MG 2ML VIAL IV PRN
[2022-12-18 13:41] LABS: BASO % 0.3 % (0.0-1.0); EOS # 0.2 10^3/uL (0.0-0.5); EOS % 2.6 % (0.0-3.0); HEMATOCRIT 47.2 % (42.0-52.0); HEMOGLOBIN 16.2 g/dl (13.5-17.5); LYMPH # 2.7 10^3/uL (1.5-5.0); LYMPH % 39.4 % (24.0-44.0); MEAN CORPUSCULAR HEMOGLOBIN 33.8 pg (27.0-33.0); MEAN CORPUSCULAR HGB CONC 34.3 g/dl (32.0-36.5); MEAN CORPUSCULAR VOLUME 98.5 fl (80.0-96.0); MONO # 0.5 10^3/uL (0.0-0.8); MONO % 7.3 % (2.0-8.0); NEUTROPHILS # 3.5 10^3/uL (1.5-8.5); NEUTROPHILS % 50.3 % (36.0-66.0); PLATELET COUNT, AUTOMATED 175 10^3/uL (150-450); RED BLOOD COUNT 4.79 10^6/uL (4.30-6.10)
[2022-12-18 13:53] LABS: ERYTHROCYTE SEDIMENTATION RATE 11 mm/hr (0-20)
[2022-12-18 14:01] LABS: ALBUMIN 3.8 G/DL (3.2-5.2); ALKALINE PHOSPHATASE 100 U/L (46-116); ALT/SGPT 85 U/L (7.0-40); AST/SGOT 39 U/L (<34); BILIRUBIN,DIRECT 0.4 MG/DL (<0.4); BLOOD UREA NITROGEN 19 MG/DL (9-23); CALCIUM LEVEL 9.1 MG/DL (8.3-10.6); CARBON DIOXIDE LEVEL 32 MMOL/L (20-31); CHLORIDE LEVEL 106 MMOL/L (98-107); CREATININE FOR GFR 0.94 MG/DL (0.70-1.30); GLOMERULAR FILTRATION RATE > 60.0 (>49); GLUCOSE, FASTING 103 MG/DL (74-106); POTASSIUM SERUM 4.5 MMOL/L (3.5-5.1); SODIUM LEVEL 143 MMOL/L (136-145); TOTAL PROTEIN 6.7 G/DL (5.7-8.2)
[2022-12-18 14:02] LABS: C REACTIVE PROTEIN QUANTITATIV < 0.40 MG/DL (<1.0)
== END ==
LOC: M SFHCADAM 11:29
PROVIDERS: ATTEND Internal Medicine
DX: M45.0 Ankylosing spondylitis of multiple sites in spine (principal)

== ENCOUNTER → 2023-01-08 | Outpatient (REF) | payer BC | LOC: M LAB REF 16:26 | PROVIDERS: ATTEND Nurse Practitioner Adult Health | DX: M45.0 Ankylosing spondylitis of multiple sites in spine (principal) ==

== ENCOUNTER 2023-01-09 07:45 | Outpatient (CLI) | payer BC ==
[~2023-01-09] VITALS: Ht 180.3 cm; Wt 133.0 kg
[~2023-01-09 07:45] MED LIST changes: +ALBUTEROL SULFATE 2.5MG/0.5ML INH NEB SOLN INH PRN; +EPINEPHrine INJ 1 MG/ML 1ML AMP IM PRN; +diphenhydrAMINE 50MG/ML VIAL IV PRN; +methylPREDNISolone 125MG 2ML VIAL IV PRN
[2023-01-09 08:05] VITALS: BP 144/82
[2023-01-09] MEDS ORDERED: NS IV ONE (08:30)
[2023-01-09] MEDS ORDERED: ACETAMINOPHEN TAB 650MG DOSE (2X325MG) PO ONE (08:30)
[2023-01-09] MEDS ORDERED: INFLIXIMAB IV ONE (08:30)
[2023-01-09] MEDS ORDERED: diphenhydrAMINE 25MG CAP PO ONE (08:30)
[2023-01-09] MEDS ORDERED: NS 1,000 ML IV SCH (08:30)
[2023-01-09 09:20] VITALS: BP 159/74
[2023-01-09 10:20] VITALS: BP 144/69
== END 2023-01-09 10:30 | disposition home or self-care (01) ==
LOC: M INFU 07:45
PROVIDERS: ATTEND Internal Medicine
DX: M45.0 Ankylosing spondylitis of multiple sites in spine (principal)
CPT/HCPCS: 96413; J1745

== ENCOUNTER → 2023-03-12 | Outpatient (REF) | payer BC ==
[~2023-03-12] MED LIST changes: -ALBUTEROL SULFATE 2.5MG/0.5ML INH NEB SOLN INH PRN; -EPINEPHrine INJ 1 MG/ML 1ML AMP IM PRN; -diphenhydrAMINE 50MG/ML VIAL IV PRN; -methylPREDNISolone 125MG 2ML VIAL IV PRN
[2023-03-12 13:51] LABS: BASO % 0.2 % (0.0-1.0); EOS # 0.3 10^3/uL (0.0-0.5); EOS % 4.9 % (0.0-3.0); HEMATOCRIT 44.8 % (42.0-52.0); HEMOGLOBIN 15.2 g/dl (13.5-17.5); LYMPH % 34.6 % (24.0-44.0); MEAN CORPUSCULAR HEMOGLOBIN 33.4 pg (27.0-33.0); MEAN CORPUSCULAR HGB CONC 33.9 g/dl (32.0-36.5); MEAN CORPUSCULAR VOLUME 98.5 fl (80.0-96.0); MONO # 0.3 10^3/uL (0.0-0.8); MONO % 5.3 % (2.0-8.0); NEUTROPHILS # 3.2 10^3/uL (1.5-8.5); NEUTROPHILS % 54.7 % (36.0-66.0); PLATELET COUNT, AUTOMATED 169 10^3/uL (150-450); RED BLOOD COUNT 4.55 10^6/uL (4.30-6.10); WHITE BLOOD COUNT 5.9 10^3/uL (4.0-10.0)
[2023-03-12 14:15] LABS: C REACTIVE PROTEIN QUANTITATIV < 0.40 MG/DL (<1.0)
[2023-03-12 14:17] LABS: ALBUMIN 3.8 G/DL (3.2-5.2); ALKALINE PHOSPHATASE 87 U/L (46-116); ALT/SGPT 48 U/L (7.0-40); AST/SGOT 20 U/L (<34); BILIRUBIN,DIRECT 0.5 MG/DL (<0.4); BILIRUBIN,TOTAL 1.4 MG/DL (0.3-1.2); BLOOD UREA NITROGEN 21 MG/DL (9-23); CALCIUM LEVEL 8.4 MG/DL (8.3-10.6); CARBON DIOXIDE LEVEL 27 MMOL/L (20-31); CHLORIDE LEVEL 107 MMOL/L (98-107); CREATININE FOR GFR 1.01 MG/DL (0.70-1.30); GLOMERULAR FILTRATION RATE > 60.0 (>49); GLUCOSE, FASTING 143 MG/DL (74-106); POTASSIUM SERUM 4.7 MMOL/L (3.5-5.1); SODIUM LEVEL 140 MMOL/L (136-145); TOTAL PROTEIN 6.3 G/DL (5.7-8.2)
[2023-03-12 14:34] LABS: ERYTHROCYTE SEDIMENTATION RATE 11 mm/hr (0-20)
== END ==
LOC: M SFHCADAM 09:35
PROVIDERS: ATTEND Internal Medicine
DX: M45.0 Ankylosing spondylitis of multiple sites in spine (principal)

== ENCOUNTER 2023-05-23 08:00 | Outpatient (CLI) | payer BC ==
[~2023-05-23] VITALS: Ht 180.3 cm; Wt 126.0 kg
[~2023-05-23 08:00] MED LIST changes: +ALBUTEROL SULFATE 2.5MG/0.5ML INH NEB SOLN INH PRN; +EPINEPHrine INJ 1 MG/ML 1ML AMP IM PRN; +diphenhydrAMINE 50MG/ML VIAL IV PRN; +methylPREDNISolone 125MG 2ML VIAL IV PRN
[2023-05-23 08:07] VITALS: BP 176/78; TEMP 97.6; O2SAT 95
[2023-05-23] MEDS ORDERED: inFLIXimab INJECTION 900 MG in NS 160 ML IV ONE (08:15)
[2023-05-23] MEDS ORDERED: ACETAMINOPHEN 650MG ER TAB (TYLENOL ARTHRITIS) PO ONE (08:15)
[2023-05-23] MEDS ORDERED: diphenhydrAMINE 50MG PO PRIOR TO INFUSION PO ONE (08:15)
[2023-05-23 09:58] VITALS: BP 135/67; TEMP 98; O2SAT 96
== END 2023-05-23 10:00 ==
LOC: M INFU 08:00
PROVIDERS: ATTEND Internal Medicine
DX: M45.0 Ankylosing spondylitis of multiple sites in spine (principal)
CPT/HCPCS: 96413; J1745

== ENCOUNTER 2023-07-04 12:45 | Outpatient (CLI) | payer BC ==
[~2023-07-04] VITALS: Ht 177.8 cm; Wt 125.0 kg
[2023-07-04 12:45] VITALS: BP 149/65; O2SAT 96
[~2023-07-04 12:45] MED LIST changes: +LORA-1041 PO; -LORA-674 PO; -OXYB5TAB10; +OXYB5TAB11
[2023-07-04] MEDS ORDERED: diphenhydrAMINE 50MG PO PRIOR TO INFUSION PO ONE (13:00)
[2023-07-04] MEDS ORDERED: ACETAMINOPHEN 650MG ER TAB (TYLENOL ARTHRITIS) PO ONE (13:00)
[2023-07-04] MEDS ORDERED: inFLIXimab INJECTION 900 MG in NS 160 ML IV ONE (13:30)
== END 2023-07-04 15:00 | disposition home or self-care (01) ==
LOC: M INFU 12:45
PROVIDERS: ATTEND Internal Medicine
DX: M45.0 Ankylosing spondylitis of multiple sites in spine (principal)
CPT/HCPCS: 96413; J1745

== ENCOUNTER 2023-08-14 07:50 | Outpatient (CLI) | payer BC ==
[~2023-08-14] VITALS: Ht 177.8 cm; Wt 126.0 kg
[2023-08-14] MEDS ORDERED: ACETAMINOPHEN 650MG ER TAB (TYLENOL ARTHRITIS) PO ONE (08:00)
[2023-08-14] MEDS ORDERED: diphenhydrAMINE 50MG PO PRIOR TO INFUSION PO ONE (08:00)
[2023-08-14] MEDS ORDERED: inFLIXimab INJECTION 900 MG in NS 160 ML IV ONE (08:00)
[2023-08-14 08:03] VITALS: BP 134/76; O2SAT 96
[2023-08-14 10:00] VITALS: BP 133/67; O2SAT 96
== END 2023-08-14 10:00 ==
LOC: M INFU 07:50
PROVIDERS: ATTEND Internal Medicine
DX: M45.0 Ankylosing spondylitis of multiple sites in spine (principal)
CPT/HCPCS: 96413; J1745

== ENCOUNTER 2023-09-25 07:32 | Outpatient (CLI) | payer BC ==
[~2023-09-25] VITALS: Ht 177.8 cm; Wt 128.0 kg
[2023-09-25 08:00] VITALS: BP 153/74; TEMP 97; O2SAT 93
[2023-09-25] MEDS ORDERED: inFLIXimab INJECTION 900 MG in NS 160 ML IV ONE (08:00)
[2023-09-25] MEDS ORDERED: ACETAMINOPHEN 650MG ER TAB (TYLENOL ARTHRITIS) PO ONE (08:00)
[2023-09-25] MEDS ORDERED: diphenhydrAMINE 50MG PO PRIOR TO INFUSION PO ONE (08:00)
[2023-09-25 10:03] VITALS: BP 144/72; TEMP 97.8; O2SAT 94
== END 2023-09-25 10:10 | disposition home or self-care (01) ==
LOC: M INFU 07:32
PROVIDERS: ATTEND Internal Medicine
DX: M45.9 Ankylosing spondylitis of unspecified sites in spine (principal); Z91.030 Bee allergy status; Z91.048 Other nonmedicinal substance allergy status
CPT/HCPCS: 96413; J1745

== ENCOUNTER → 2023-10-30 | Outpatient (REF) | payer BC ==
[~2023-10-30] MED LIST changes: -ALBUTEROL SULFATE 2.5MG/0.5ML INH NEB SOLN INH PRN; -EPINEPHrine INJ 1 MG/ML 1ML AMP IM PRN; -diphenhydrAMINE 50MG/ML VIAL IV PRN; -methylPREDNISolone 125MG 2ML VIAL IV PRN
[2023-10-30 14:45] LABS: BASO % 0.3 % (0.0-1.0); EOS # 0.2 10^3/uL (0.0-0.5); EOS % 3.2 % (0.0-3.0); HEMATOCRIT 46.5 % (42.0-52.0); HEMOGLOBIN 15.8 g/dl (13.5-17.5); LYMPH # 2.3 10^3/uL (1.5-5.0); LYMPH % 39.6 % (24.0-44.0); MEAN CORPUSCULAR HEMOGLOBIN 33.9 pg (27.0-33.0); MEAN CORPUSCULAR VOLUME 99.8 fl (80.0-96.0); MONO # 0.5 10^3/uL (0.0-0.8); MONO % 8.1 % (2.0-8.0); NEUTROPHILS # 2.9 10^3/uL (1.5-8.5); NEUTROPHILS % 48.5 % (36.0-66.0); PLATELET COUNT, AUTOMATED 153 10^3/uL (150-450); RED BLOOD COUNT 4.66 10^6/uL (4.30-6.10); WHITE BLOOD COUNT 5.9 10^3/uL (4.0-10.0)
[2023-10-30 14:57] LABS: ERYTHROCYTE SEDIMENTATION RATE 7 mm/hr (0-20)
[2023-10-30 15:14] LABS: C REACTIVE PROTEIN QUANTITATIV < 0.40 MG/DL (<1.0)
[2023-10-30 15:17] LABS: ALBUMIN 3.8 G/DL (3.2-5.2); ALKALINE PHOSPHATASE 90 U/L (46-116); ALT/SGPT 64 U/L (7.0-40); AST/SGOT 26 U/L (<34); BILIRUBIN,DIRECT 0.5 MG/DL (<0.4); BILIRUBIN,TOTAL 1.1 MG/DL (0.3-1.2); BLOOD UREA NITROGEN 19 MG/DL (9-23); CALCIUM LEVEL 8.7 MG/DL (8.3-10.6); CARBON DIOXIDE LEVEL 30 MMOL/L (20-31); CHLORIDE LEVEL 108 MMOL/L (98-107); CREATININE FOR GFR 0.97 MG/DL (0.70-1.30); GLOMERULAR FILTRATION RATE > 60.0 (>49); GLUCOSE, FASTING 104 MG/DL (74-106); POTASSIUM SERUM 4.8 MMOL/L (3.5-5.1); SODIUM LEVEL 143 MMOL/L (136-145); TOTAL PROTEIN 6.6 G/DL (5.7-8.2)
== END ==
LOC: M SFHCADAM 11:01
PROVIDERS: ATTEND Internal Medicine
DX: M45.0 Ankylosing spondylitis of multiple sites in spine (principal)

== ENCOUNTER 2023-11-06 08:00 | Outpatient (CLI) | payer BC ==
[~2023-11-06] VITALS: Ht 177.8 cm; Wt 126.0 kg
[~2023-11-06 08:00] MED LIST changes: +ACETAMINOPHEN 650MG PO PRIOR TO INFUSION PO ONE; +ALBUTEROL SULFATE 2.5MG/0.5ML INH NEB SOLN INH PRN; +EPINEPHrine INJ 1 MG/ML 1ML AMP IM PRN; +NS 1,000 ML IV SCH; -OXYB5TAB11; +OXYB5TAB14; +diphenhydrAMINE 50MG PO PRIOR TO INFUSION PO ONE; +diphenhydrAMINE 50MG/ML VIAL IV PRN; +methylPREDNISolone 125MG 2ML VIAL IV PRN
[2023-11-06 08:11] VITALS: BP 128/66; TEMP 97.4; O2SAT 95
[2023-11-06] MEDS: inFLIXimab INJECTION 900 MG in NS 160 ML IV ONE (08:48)
[2023-11-06 09:50] VITALS: BP 137/64; O2SAT 96
== END 2023-11-06 09:50 ==
LOC: M INFU 08:00
PROVIDERS: ATTEND Internal Medicine
DX: M45.0 Ankylosing spondylitis of multiple sites in spine (principal)
CPT/HCPCS: 96413; J1745

== ENCOUNTER 2023-12-18 07:46 | Outpatient (CLI) | payer BC ==
[~2023-12-18 07:46] MED LIST changes: -ACETAMINOPHEN 650MG PO PRIOR TO INFUSION PO ONE; -NS 1,000 ML IV SCH; -diphenhydrAMINE 50MG PO PRIOR TO INFUSION PO ONE
[2023-12-18 08:05] VITALS: BP 188/92; O2SAT 97
[2023-12-18] MEDS: inFLIXimab INJECTION 900 MG in NS 160 ML IV ONE (08:40)
[2023-12-18] MEDS: diphenhydrAMINE 50MG PO PRIOR TO INFUSION PO ONE (08:41)
[2023-12-18] MEDS: ACETAMINOPHEN 650MG ER TAB (TYLENOL ARTHRITIS) PO ONE (08:41)
[2023-12-18 09:35] VITALS: BP 140/71; O2SAT 95
== END 2023-12-18 09:45 ==
LOC: M INFU 07:46
PROVIDERS: ATTEND Internal Medicine
DX: M45.0 Ankylosing spondylitis of multiple sites in spine (principal)
CPT/HCPCS: 96413; J1745

== ENCOUNTER → 2024-01-08 | Outpatient (REF) | payer BC ==
[~2024-01-08] MED LIST changes: -ALBUTEROL SULFATE 2.5MG/0.5ML INH NEB SOLN INH PRN; -EPINEPHrine INJ 1 MG/ML 1ML AMP IM PRN; -diphenhydrAMINE 50MG/ML VIAL IV PRN; -methylPREDNISolone 125MG 2ML VIAL IV PRN
== END ==
LOC: M LAB REF 16:28
PROVIDERS: ATTEND Nurse Practitioner Adult Health
DX: E29.1 Testicular hypofunction (principal)

== ENCOUNTER → 2024-01-28 | Outpatient (REF) | payer BC ==
[~2024-01-28] MED LIST changes: +DOXY-440 PO; -DOXY-444 PO
[2024-01-28 14:38] LABS: C REACTIVE PROTEIN QUANTITATIV < 0.40 MG/DL (<1.0)
[2024-01-28 14:39] LABS: ALBUMIN 3.4 G/DL (3.2-5.2); ALKALINE PHOSPHATASE 90 U/L (46-116); ALT/SGPT 68 U/L (7.0-40); AST/SGOT 29 U/L (<34); BILIRUBIN,DIRECT 0.4 MG/DL (<0.4); BILIRUBIN,TOTAL 1.2 MG/DL (0.3-1.2); BLOOD UREA NITROGEN 21 MG/DL (9-23); CALCIUM LEVEL 8.5 MG/DL (8.3-10.6); CARBON DIOXIDE LEVEL 28 MMOL/L (20-31); CHLORIDE LEVEL 108 MMOL/L (98-107); CREATININE FOR GFR 1.09 MG/DL (0.70-1.30); GLOMERULAR FILTRATION RATE > 60.0 (>49); GLUCOSE, FASTING 184 MG/DL (74-106); POTASSIUM SERUM 4.9 MMOL/L (3.5-5.1); SODIUM LEVEL 143 MMOL/L (136-145); TOTAL PROTEIN 6.4 G/DL (5.7-8.2)
[2024-01-28 14:55] LABS: BASO % 0.3 % (0.0-1.0); EOS # 0.2 10^3/uL (0.0-0.5); EOS % 3.8 % (0.0-3.0); HEMATOCRIT 47.2 % (42.0-52.0); HEMOGLOBIN 16.2 g/dl (13.5-17.5); LYMPH % 34.8 % (24.0-44.0); MEAN CORPUSCULAR HEMOGLOBIN 34.5 pg (27.0-33.0); MEAN CORPUSCULAR HGB CONC 34.3 g/dl (32.0-36.5); MEAN CORPUSCULAR VOLUME 100.4 fl (80.0-96.0); MONO # 0.4 10^3/uL (0.0-0.8); MONO % 6.7 % (2.0-8.0); NEUTROPHILS # 3.1 10^3/uL (1.5-8.5); NEUTROPHILS % 54.1 % (36.0-66.0); PLATELET COUNT, AUTOMATED 181 10^3/uL (150-450); WHITE BLOOD COUNT 5.8 10^3/uL (4.0-10.0)
[2024-01-28 15:17] LABS: ERYTHROCYTE SEDIMENTATION RATE 9 mm/hr (0-20)
== END ==
LOC: M SFHCADAM 10:05
PROVIDERS: ATTEND Internal Medicine
DX: M45.0 Ankylosing spondylitis of multiple sites in spine (principal)

== ENCOUNTER 2024-01-29 08:25 | Outpatient (CLI) | payer BC ==
[~2024-01-29] VITALS: Ht 177.8 cm; Wt 132.7 kg
[2024-01-29 08:25] VITALS: BP 165/77; O2SAT 96
[~2024-01-29 08:25] MED LIST changes: +ALBUTEROL SULFATE 2.5MG/0.5ML INH NEB SOLN INH PRN; +EPINEPHrine INJ 1 MG/ML 1ML AMP IM PRN; +diphenhydrAMINE 50MG/ML VIAL IV PRN; +methylPREDNISolone 125MG 2ML VIAL IV PRN
[2024-01-29] MEDS: inFLIXimab INJECTION 900 MG in NS 160 ML IV ONE (09:39)
[2024-01-29] MEDS: ACETAMINOPHEN 650MG ER TAB (TYLENOL ARTHRITIS) PO ONE (09:41)
[2024-01-29] MEDS: diphenhydrAMINE 50MG PO PRIOR TO INFUSION PO ONE (09:41)
[2024-01-29 10:36] VITALS: BP 138/64; O2SAT 95
== END 2024-01-29 10:40 | disposition home or self-care (01) ==
LOC: M INFU 08:25
PROVIDERS: ATTEND Internal Medicine
DX: M45.0 Ankylosing spondylitis of multiple sites in spine (principal); Z91.030 Bee allergy status; Z91.048 Other nonmedicinal substance allergy status
CPT/HCPCS: 96413; J1745

== ENCOUNTER 2024-02-01 21:24 | Emergency (ER) | payer BC ==
[~2024-02-01] VITALS: Ht 177.8 cm; Wt 132.3 kg
[~2024-02-01 21:24] MED LIST changes: -ALBUTEROL SULFATE 2.5MG/0.5ML INH NEB SOLN INH PRN; -EPINEPHrine INJ 1 MG/ML 1ML AMP IM PRN; -diphenhydrAMINE 50MG/ML VIAL IV PRN; -methylPREDNISolone 125MG 2ML VIAL IV PRN
[2024-02-02] MEDS ORDERED: AUGM500T34 PO (02:02)
[2024-02-02] MEDS: AUGMENTIN 875 MG TAB PO ONE (02:16)
[2024-02-02 02:22] VITALS: BP 128/72; TEMP 97.8; O2SAT 97
== END 2024-02-02 02:23 | disposition home or self-care (01) ==
LOC: M ED 21:24
DX: K08.89 Other specified disorders of teeth and supporting structures (principal); E78.5 Hyperlipidemia, unspecified; F10.10 Alcohol abuse, uncomplicated; Z91.048 Other nonmedicinal substance allergy status; Z79.2 Long term (current) use of antibiotics; Z79.1 Long term (current) use of non-steroidal anti-inflammatories (NSAID); Z79.84 Long term (current) use of oral hypoglycemic drugs; Z79.810 Long term (current) use of selective estrogen receptor modulators (SERMs); Z79.4 Long term (current) use of insulin; Z79.899 Other long term (current) drug therapy

== ENCOUNTER → 2024-03-05 | Outpatient (CLI) | payer BC ==
[~2024-03-05] MED LIST changes: +AUGM500T34 PO
== END ==
LOC: M RAD 12:46
PROVIDERS: ATTEND Physician Assistant
DX: I10 Essential (primary) hypertension (principal)

== ENCOUNTER 2024-03-11 07:40 | Outpatient (CLI) | payer BC ==
[~2024-03-11] VITALS: Ht 177.8 cm; Wt 131.4 kg
[2024-03-11 07:40] VITALS: BP 140/69; O2SAT 94
[2024-03-11] MEDS ORDERED: ACETAMINOPHEN 650MG PO PRIOR TO INFUSION PO ONE (08:00)
[2024-03-11] MEDS ORDERED: diphenhydrAMINE 50MG PO PRIOR TO INFUSION PO ONE (08:00)
[2024-03-11] MEDS: inFLIXimab INJECTION 900 MG in NS 160 ML IV ONE (08:43)
[2024-03-11 09:10] VITALS: BP 130/62; O2SAT 95
[2024-03-11 09:50] VITALS: BP 130/58; O2SAT 94
== END 2024-03-11 09:50 ==
LOC: M INFU 07:40
PROVIDERS: ATTEND Internal Medicine
DX: M45.0 Ankylosing spondylitis of multiple sites in spine (principal); Z91.048 Other nonmedicinal substance allergy status
CPT/HCPCS: 96413; J1745

== ENCOUNTER 2024-04-22 08:20 | Outpatient (CLI) | payer BC ==
[~2024-04-22] VITALS: Ht 177.8 cm; Wt 127.0 kg
[~2024-04-22 08:20] MED LIST changes: +ALBUTEROL SULFATE 2.5MG/0.5ML INH NEB SOLN INH PRN; +EPINEPHrine INJ 1 MG/ML 1ML AMP IM PRN; +diphenhydrAMINE 50MG/ML VIAL IV PRN; +methylPREDNISolone 125MG 2ML VIAL IV PRN
[2024-04-22 08:29] VITALS: BP 128/66; TEMP 97.6; O2SAT 96
[2024-04-22] MEDS: inFLIXimab INJECTION 900 MG in NS 160 ML IV ONE (09:08)
[2024-04-22] MEDS: ACETAMINOPHEN 650MG ER TAB (TYLENOL ARTHRITIS) PO ONE (09:08)
[2024-04-22] MEDS: diphenhydrAMINE 50MG PO PRIOR TO INFUSION PO ONE (09:08)
[2024-04-22 09:25] VITALS: BP 118/75; TEMP 98; O2SAT 95
[2024-04-22 10:10] VITALS: BP 117/60; TEMP 97.8; O2SAT 94
== END 2024-04-22 10:15 | disposition home or self-care (01) ==
LOC: M INFU 08:20
PROVIDERS: ATTEND Internal Medicine
DX: M45.0 Ankylosing spondylitis of multiple sites in spine (principal); Z91.048 Other nonmedicinal substance allergy status
CPT/HCPCS: 96413; J1745

== ENCOUNTER → 2024-05-07 | Outpatient (REF) | payer BC ==
[~2024-05-07] MED LIST changes: -ALBUTEROL SULFATE 2.5MG/0.5ML INH NEB SOLN INH PRN; -EPINEPHrine INJ 1 MG/ML 1ML AMP IM PRN; -diphenhydrAMINE 50MG/ML VIAL IV PRN; -methylPREDNISolone 125MG 2ML VIAL IV PRN
[2024-05-07 14:12] LABS: BASO % 0.5 % (0.0-1.0); EOS # 0.2 10^3/uL (0.0-0.5); HEMOGLOBIN 15.8 g/dl (13.5-17.5); LYMPH # 2.4 10^3/uL (1.5-5.0); LYMPH % 38.6 % (24.0-44.0); MEAN CORPUSCULAR HEMOGLOBIN 34.1 pg (27.0-33.0); MEAN CORPUSCULAR HGB CONC 34.3 g/dl (32.0-36.5); MEAN CORPUSCULAR VOLUME 99.4 fl (80.0-96.0); MONO # 0.4 10^3/uL (0.0-0.8); MONO % 5.6 % (2.0-8.0); NEUTROPHILS # 3.3 10^3/uL (1.5-8.5); NEUTROPHILS % 51.8 % (36.0-66.0); PLATELET COUNT, AUTOMATED 184 10^3/uL (150-450); RED BLOOD COUNT 4.63 10^6/uL (4.30-6.10); WHITE BLOOD COUNT 6.3 10^3/uL (4.0-10.0)
[2024-05-07 14:17] LABS: ERYTHROCYTE SEDIMENTATION RATE 13 mm/hr (0-20)
[2024-05-07 17:36] LABS: ALBUMIN 3.7 G/DL (3.2-5.2); ALKALINE PHOSPHATASE 90 U/L (46-116); ALT/SGPT 77 U/L (7.0-40); AST/SGOT 40 U/L (<34); BILIRUBIN,DIRECT 0.4 MG/DL (<0.4); BLOOD UREA NITROGEN 17 MG/DL (9-23); C REACTIVE PROTEIN QUANTITATIV < 0.40 MG/DL (<1.0); CALCIUM LEVEL 8.8 MG/DL (8.3-10.6); CARBON DIOXIDE LEVEL 29 MMOL/L (20-31); CHLORIDE LEVEL 109 MMOL/L (98-107); CREATININE FOR GFR 0.94 MG/DL (0.70-1.30); GLOMERULAR FILTRATION RATE > 60.0 (>49); GLUCOSE, FASTING 100 MG/DL (74-106); POTASSIUM SERUM 4.6 MMOL/L (3.5-5.1); SODIUM LEVEL 140 MMOL/L (136-145); TOTAL PROTEIN 6.9 G/DL (5.7-8.2)
== END ==
LOC: M SFHCRHEU 05-04 09:16
PROVIDERS: ATTEND Internal Medicine
DX: M45.0 Ankylosing spondylitis of multiple sites in spine (principal); Z53.9 Procedure and treatment not carried out, unspecified reason

== ENCOUNTER 2024-06-03 07:29 | Outpatient (CLI) | payer BC ==
[~2024-06-03] VITALS: Ht 177.8 cm; Wt 127.7 kg
[~2024-06-03 07:29] MED LIST changes: +ALBUTEROL SULFATE 2.5MG/0.5ML INH NEB SOLN INH PRN; +EPINEPHrine INJ 1 MG/ML 1ML AMP IM PRN; +diphenhydrAMINE 50MG/ML VIAL IV PRN; +methylPREDNISolone 125MG 2ML VIAL IV PRN
[2024-06-03 07:52] VITALS: BP 154/70; O2SAT 97
[2024-06-03] MEDS ORDERED: ACETAMINOPHEN 650MG ER TAB (TYLENOL ARTHRITIS) PO ONE (08:00)
[2024-06-03] MEDS ORDERED: diphenhydrAMINE 50MG PO PRIOR TO INFUSION PO ONE (08:00)
[2024-06-03] MEDS: inFLIXimab INJECTION 900 MG in NS 160 ML IV ONE (08:41)
[2024-06-03 09:00] VITALS: BP 128/68; O2SAT 95
[2024-06-03 09:49] VITALS: BP 141/67; O2SAT 97
== END 2024-06-03 09:50 ==
LOC: M INFU 07:29
PROVIDERS: ATTEND Internal Medicine
DX: M45.0 Ankylosing spondylitis of multiple sites in spine (principal); Z91.048 Other nonmedicinal substance allergy status
CPT/HCPCS: 96413; J1745

== ENCOUNTER → 2024-06-08 | Outpatient (REF) | payer BC ==
[~2024-06-08] MED LIST changes: -ALBUTEROL SULFATE 2.5MG/0.5ML INH NEB SOLN INH PRN; -EPINEPHrine INJ 1 MG/ML 1ML AMP IM PRN; -diphenhydrAMINE 50MG/ML VIAL IV PRN; -methylPREDNISolone 125MG 2ML VIAL IV PRN
== END ==
LOC: M LAB REF 16:50
PROVIDERS: ATTEND Nurse Practitioner Adult Health
DX: G47.33 Obstructive sleep apnea (adult) (pediatric) (principal); E11.3293 Type 2 diabetes mellitus with mild nonproliferative diabetic retinopathy without macular edema, bilateral

== ENCOUNTER → 2024-07-15 | Outpatient (CLI) | payer BC ==
[~2024-07-15] VITALS: Ht 177.8 cm; Wt 131.8 kg
[~2024-07-15] MED LIST changes: +ACETAMINOPHEN 650MG ER TAB (TYLENOL ARTHRITIS) PO ONE; +ALBUTEROL SULFATE 2.5MG/0.5ML INH NEB SOLN INH PRN; +EPINEPHrine INJ 1 MG/ML 1ML AMP IM PRN; +diphenhydrAMINE 50MG PO PRIOR TO INFUSION PO ONE; +diphenhydrAMINE 50MG/ML VIAL IV PRN; +methylPREDNISolone 125MG 2ML VIAL IV PRN
[2024-07-15 07:45] VITALS: BP 171/80; O2SAT 97
[2024-07-15] MEDS: NS IV ONE (08:54)
[2024-07-15] MEDS: INFLIXIMAB IV ONE (08:54)
[2024-07-15 09:22] VITALS: BP 126/62; O2SAT 96
[2024-07-15 10:00] VITALS: BP 136/71; O2SAT 95
== END ==
LOC: M INFU 07:25
PROVIDERS: ATTEND Internal Medicine
DX: M45.0 Ankylosing spondylitis of multiple sites in spine (principal); Z91.048 Other nonmedicinal substance allergy status
CPT/HCPCS: 96413; J1745

== ENCOUNTER → 2024-07-15 | Outpatient (CLI) | payer BC ==
[~2024-07-15] MED LIST changes: -ACETAMINOPHEN 650MG ER TAB (TYLENOL ARTHRITIS) PO ONE; -ALBUTEROL SULFATE 2.5MG/0.5ML INH NEB SOLN INH PRN; -EPINEPHrine INJ 1 MG/ML 1ML AMP IM PRN; -diphenhydrAMINE 50MG PO PRIOR TO INFUSION PO ONE; -diphenhydrAMINE 50MG/ML VIAL IV PRN; -methylPREDNISolone 125MG 2ML VIAL IV PRN
== END ==
LOC: M RAD 07:26
PROVIDERS: ATTEND Nurse Practitioner Adult Health
DX: I65.29 Occlusion and stenosis of unspecified carotid artery (principal)

== ENCOUNTER 2024-08-26 07:50 | Outpatient (CLI) | payer BC ==
[~2024-08-26] VITALS: Ht 177.8 cm; Wt 126.8 kg
[2024-08-26 07:50] VITALS: BP 158/84; O2SAT 96
[~2024-08-26 07:50] MED LIST changes: +ACETAMINOPHEN 650MG ER TAB (TYLENOL ARTHRITIS) PO ONE; +ALBUTEROL SULFATE 2.5MG/0.5ML INH NEB SOLN INH PRN; +EPINEPHrine INJ 1 MG/ML 1ML AMP IM PRN; +OMEP-611 PO; -OMEP20TA2 PO; +diphenhydrAMINE 50MG/ML VIAL IV PRN; +methylPREDNISolone 125MG 2ML VIAL IV PRN
[2024-08-26] MEDS: diphenhydrAMINE 50MG PO PRIOR TO INFUSION PO ONE (08:40)
[2024-08-26] MEDS: ACETAMINOPHEN 650MG ER TAB (TYLENOL ARTHRITIS) PO ONE (08:40)
[2024-08-26] MEDS: NS IV ONE (08:41)
[2024-08-26] MEDS: INFLIXIMAB IV ONE (08:41)
[2024-08-26 09:44] VITALS: BP 136/70; O2SAT 98
== END 2024-08-26 09:45 ==
LOC: M INFU 07:50
PROVIDERS: ATTEND Internal Medicine
DX: M45.0 Ankylosing spondylitis of multiple sites in spine (principal); Z91.048 Other nonmedicinal substance allergy status
CPT/HCPCS: 96413; J1745

== ENCOUNTER → 2024-09-11 | Outpatient (REF) | payer BC ==
[~2024-09-11] MED LIST changes: -ACETAMINOPHEN 650MG ER TAB (TYLENOL ARTHRITIS) PO ONE; -ALBUTEROL SULFATE 2.5MG/0.5ML INH NEB SOLN INH PRN; -EPINEPHrine INJ 1 MG/ML 1ML AMP IM PRN; -diphenhydrAMINE 50MG/ML VIAL IV PRN; -methylPREDNISolone 125MG 2ML VIAL IV PRN
[2024-09-11 17:17] LABS: BASO % 0.3 % (0.0-1.0); EOS # 0.1 10^3/uL (0.0-0.5); EOS % 1.8 % (0.0-3.0); HEMATOCRIT 47.5 % (42.0-52.0); HEMOGLOBIN 16.4 g/dl (13.5-17.5); LYMPH # 2.7 10^3/uL (1.5-5.0); LYMPH % 38.2 % (24.0-44.0); MEAN CORPUSCULAR HEMOGLOBIN 34.7 pg (27.0-33.0); MEAN CORPUSCULAR HGB CONC 34.5 g/dl (32.0-36.5); MEAN CORPUSCULAR VOLUME 100.6 fl (80.0-96.0); MONO # 0.6 10^3/uL (0.0-0.8); MONO % 8.8 % (2.0-8.0); NEUTROPHILS # 3.6 10^3/uL (1.5-8.5); NEUTROPHILS % 50.5 % (36.0-66.0); PLATELET COUNT, AUTOMATED 202 10^3/uL (150-450); RED BLOOD COUNT 4.72 10^6/uL (4.30-6.10); WHITE BLOOD COUNT 7.1 10^3/uL (4.0-10.0)
[2024-09-11 17:22] LABS: ERYTHROCYTE SEDIMENTATION RATE 12 mm/hr (0-20)
[2024-09-11 17:23] LABS: C REACTIVE PROTEIN QUANTITATIV < 0.50 MG/DL (<1.0)
[2024-09-11 17:24] LABS: ALBUMIN 3.7 G/DL (3.2-5.2); ALKALINE PHOSPHATASE 104 U/L (40-129); ALT/SGPT 70 U/L (7.0-40); AST/SGOT 37 U/L (<34); BILIRUBIN,DIRECT 0.4 MG/DL (<0.4); BILIRUBIN,TOTAL 1.2 MG/DL (0.3-1.2); BLOOD UREA NITROGEN 21 MG/DL (9-23); CALCIUM LEVEL 9.6 MG/DL (8.3-10.6); CARBON DIOXIDE LEVEL 30 MMOL/L (20-31); CHLORIDE LEVEL 105 MMOL/L (98-107); CREATININE FOR GFR 0.95 MG/DL (0.70-1.30); GLOMERULAR FILTRATION RATE > 60.0 (>49); GLUCOSE, FASTING 80 MG/DL (74-106); POTASSIUM SERUM 4.4 MMOL/L (3.5-5.1); SODIUM LEVEL 142 MMOL/L (136-145); TOTAL PROTEIN 7.2 G/DL (5.7-8.2)
== END ==
LOC: M SFHCADAM 11:50
PROVIDERS: ATTEND Internal Medicine
DX: M45.0 Ankylosing spondylitis of multiple sites in spine (principal)

== ENCOUNTER 2024-10-07 07:39 | Outpatient (CLI) | payer BC ==
[~2024-10-07] VITALS: Ht 177.8 cm; Wt 125.8 kg
[~2024-10-07 07:39] MED LIST changes: +ALBUTEROL SULFATE 2.5MG/0.5ML INH NEB SOLN INH PRN; +EPINEPHrine INJ 1 MG/ML 1ML AMP IM PRN; +diphenhydrAMINE 50MG/ML VIAL IV PRN; +methylPREDNISolone 125MG 2ML VIAL IV PRN
[2024-10-07 08:00] VITALS: BP 148/65; TEMP 97.5; O2SAT 99
[2024-10-07] MEDS: ACETAMINOPHEN 650MG ER TAB (TYLENOL ARTHRITIS) PO ONE (08:00)
[2024-10-07] MEDS: diphenhydrAMINE 50MG PO PRIOR TO INFUSION PO ONE (08:00)
[2024-10-07] MEDS: INFLIXIMAB IV ONE (09:11)
[2024-10-07] MEDS: NS IV ONE (09:11)
== END 2024-10-07 10:20 ==
LOC: M INFU 07:39
PROVIDERS: ATTEND Internal Medicine
DX: M45.0 Ankylosing spondylitis of multiple sites in spine (principal); Z91.048 Other nonmedicinal substance allergy status
CPT/HCPCS: 96413; J1745

== ENCOUNTER 2024-11-18 07:50 | Outpatient (CLI) | payer BC ==
[~2024-11-18] VITALS: Ht 177.8 cm; Wt 125.5 kg
[2024-11-18 07:50] VITALS: BP 140/75; O2SAT 95
[2024-11-18] MEDS ORDERED: ACETAMINOPHEN 650MG ER TAB (TYLENOL ARTHRITIS) PO ONE (08:00)
[2024-11-18] MEDS ORDERED: diphenhydrAMINE 50MG PO PRIOR TO INFUSION PO ONE (08:00)
[2024-11-18] MEDS: inFLIXimab INJECTION 900 MG in NS 160 ML IV ONE (08:34)
[2024-11-18 09:40] VITALS: BP 130/62; O2SAT 95
== END 2024-11-18 09:40 ==
LOC: M INFU 07:50
PROVIDERS: ATTEND Internal Medicine
DX: M45.0 Ankylosing spondylitis of multiple sites in spine (principal); Z91.048 Other nonmedicinal substance allergy status
CPT/HCPCS: 96413; J1745

== ENCOUNTER 2024-12-30 07:30 | Outpatient (CLI) | payer BC ==
[~2024-12-30] VITALS: Ht 177.8 cm; Wt 122.7 kg
[2024-12-30 07:30] VITALS: BP 122/88; O2SAT 97
[~2024-12-30 07:30] MED LIST changes: +ALBUTEROL SULFATE 2.5MG/0.5ML INH CONCENTRATE NEB SOLN INH PRN; -ALBUTEROL SULFATE 2.5MG/0.5ML INH NEB SOLN INH PRN
[2024-12-30] MEDS ORDERED: diphenhydrAMINE 50MG PO PRIOR TO INFUSION PO ONE (08:00)
[2024-12-30] MEDS ORDERED: ACETAMINOPHEN 650MG ER TAB (TYLENOL ARTHRITIS) PO ONE (08:00)
[2024-12-30] MEDS: inFLIXimab INJECTION 900 MG in NS 160 ML IV ONE (08:04)
[2024-12-30 08:24] VITALS: BP 126/59; O2SAT 96
[2024-12-30 09:10] VITALS: BP 132/63; O2SAT 95
== END 2024-12-30 09:10 ==
LOC: M INFU 07:30
PROVIDERS: ATTEND Internal Medicine
DX: M45.0 Ankylosing spondylitis of multiple sites in spine (principal); Z91.048 Other nonmedicinal substance allergy status
CPT/HCPCS: 96413; J1745

== ENCOUNTER → 2025-01-06 | Outpatient (REF) | payer BC ==
[~2025-01-06] MED LIST changes: -ALBUTEROL SULFATE 2.5MG/0.5ML INH CONCENTRATE NEB SOLN INH PRN; -EPINEPHrine INJ 1 MG/ML 1ML AMP IM PRN; -diphenhydrAMINE 50MG/ML VIAL IV PRN; -methylPREDNISolone 125MG 2ML VIAL IV PRN
== END ==
LOC: M LAB REF 17:39
PROVIDERS: ATTEND Nurse Practitioner Adult Health
DX: E29.1 Testicular hypofunction (principal); E66.01 Morbid (severe) obesity due to excess calories; E11.3293 Type 2 diabetes mellitus with mild nonproliferative diabetic retinopathy without macular edema, bilateral

== ENCOUNTER 2025-02-10 07:33 | Outpatient (CLI) | payer BC ==
[~2025-02-10] VITALS: Ht 177.8 cm; Wt 120.0 kg
[~2025-02-10 07:33] MED LIST changes: +ALBUTEROL SULFATE 2.5MG/0.5ML INH CONCENTRATE NEB SOLN INH PRN; +EPINEPHrine INJ 1 MG/ML 1ML AMP IM PRN; -FLOM0.4C39 PO; +TAMS-18 PO; +diphenhydrAMINE 50MG/ML VIAL IV PRN; +methylPREDNISolone 125MG 2ML VIAL IV PRN
[2025-02-10 07:35] VITALS: BP 122/67; O2SAT 96
[2025-02-10] MEDS ORDERED: diphenhydrAMINE 50MG PO PRIOR TO INFUSION PO ONE (08:00)
[2025-02-10] MEDS ORDERED: ACETAMINOPHEN 650MG ER TAB (TYLENOL ARTHRITIS) PO ONE (08:00)
[2025-02-10] MEDS: inFLIXimab INJECTION 900 MG in NS 160 ML IV ONE (08:46)
[2025-02-10 09:08] VITALS: BP 116/67; O2SAT 93
[2025-02-10 09:50] VITALS: BP 127/63; O2SAT 94
== END 2025-02-10 09:50 | disposition home or self-care (01) ==
LOC: M INFU 07:33
PROVIDERS: ATTEND Internal Medicine
DX: M45.0 Ankylosing spondylitis of multiple sites in spine (principal); Z91.048 Other nonmedicinal substance allergy status
CPT/HCPCS: 96413; J1745

== ENCOUNTER 2025-03-24 07:31 | Outpatient (CLI) | payer BC ==
[~2025-03-24] VITALS: Ht 177.8 cm; Wt 115.9 kg
[~2025-03-24 07:31] MED LIST changes: -ALBUTEROL SULFATE 2.5MG/0.5ML INH CONCENTRATE NEB SOLN INH PRN; -EPINEPHrine INJ 1 MG/ML 1ML AMP IM PRN; -diphenhydrAMINE 50MG/ML VIAL IV PRN; -methylPREDNISolone 125MG 2ML VIAL IV PRN
[2025-03-24 07:45] VITALS: BP 121/58; O2SAT 95
[2025-03-24] MEDS ORDERED: diphenhydrAMINE 50MG PO PRIOR TO INFUSION PO ONE (08:00)
[2025-03-24] MEDS ORDERED: ACETAMINOPHEN 650MG PO PRIOR TO INFUSION PO ONE (08:00)
[2025-03-24] MEDS ORDERED: NS (Normal Saline) 0.9% 1,000 ML IV SCH (08:00)
[2025-03-24] MEDS: inFLIXimab INJECTION 900 MG in NS 160 ML IV ONE (08:52)
[2025-03-24 09:05] VITALS: BP 117/56; O2SAT 94
[2025-03-24 09:45] VITALS: BP 118/60; O2SAT 96
== END 2025-03-24 09:45 | disposition home or self-care (01) ==
LOC: M INFU 07:31
PROVIDERS: ATTEND Internal Medicine
DX: M45.0 Ankylosing spondylitis of multiple sites in spine (principal); Z91.048 Other nonmedicinal substance allergy status
CPT/HCPCS: 96413; J1745

== ENCOUNTER 2025-05-05 07:30 | Outpatient (CLI) | payer BC ==
[~2025-05-05] VITALS: Ht 177.8 cm; Wt 114.1 kg
[~2025-05-05 07:30] MED LIST changes: +ALBUTEROL SULFATE 2.5 MG/0.5 ML INH CONCENTRATE NEB SOLN INH PRN; +EPINEPHrine INJ 1 MG/ML 1ML AMP IM PRN; +diphenhydrAMINE 50 MG/ML VIAL IV PRN
[2025-05-05 07:54] VITALS: BP 126/66; O2SAT 96
[2025-05-05] MEDS ORDERED: NS (Normal Saline) 0.9% 1,000 ML IV SCH (08:00)
[2025-05-05] MEDS: NS IV ONE (08:32)
[2025-05-05] MEDS: INFLIXIMAB IV ONE (08:32)
[2025-05-05] MEDS: diphenhydrAMINE 50MG PO PRIOR TO INFUSION PO ONE (08:32)
[2025-05-05] MEDS: ACETAMINOPHEN 650 MG ER TAB PO ONE (08:32)
[2025-05-05 09:30] VITALS: BP 117/57; O2SAT 98
== END 2025-05-05 09:45 ==
LOC: M INFU 07:30
PROVIDERS: ATTEND Internal Medicine
DX: M45.0 Ankylosing spondylitis of multiple sites in spine (principal); Z91.048 Other nonmedicinal substance allergy status
CPT/HCPCS: 96413; J1745

== ENCOUNTER → 2025-05-27 | Outpatient (REF) | payer BC ==
[~2025-05-27] MED LIST changes: -ALBUTEROL SULFATE 2.5 MG/0.5 ML INH CONCENTRATE NEB SOLN INH PRN; -EPINEPHrine INJ 1 MG/ML 1ML AMP IM PRN; -diphenhydrAMINE 50 MG/ML VIAL IV PRN
[2025-05-27 18:49] LABS: BASO # 0.0 10^3/uL (0.0-0.2); BASO % 0.2 % (0.0-1.0); EOS # 0.1 10^3/uL (0.0-0.5); EOS % 1.6 % (0.0-3.0); LYMPH # 2.4 10^3/uL (1.5-5.0); LYMPH % 38.4 % (24.0-44.0); MONO # 0.5 10^3/uL (0.0-0.8); MONO % 7.2 % (2.0-8.0); NEUTROPHILS # 3.3 10^3/uL (1.5-8.5); NEUTROPHILS % 52.3 % (36.0-66.0); PLATELET COUNT, AUTOMATED 175 10^3/uL (150-450)
[2025-05-27 18:53] LABS: C REACTIVE PROTEIN QUANTITATIV < 0.50 MG/DL (<1.0)
[2025-05-27 18:54] LABS: ALT/SGPT 38 U/L (7.0-40); AST/SGOT 25 U/L (<34); CALCIUM LEVEL 8.9 MG/DL (8.3-10.6); CARBON DIOXIDE LEVEL 30 MMOL/L (20-31); CHLORIDE LEVEL 105 MMOL/L (98-107); CREATININE FOR GFR 1.14 MG/DL (0.70-1.30); GLOMERULAR FILTRATION RATE 72.3 (>49); POTASSIUM SERUM 4.7 MMOL/L (3.5-5.1); SODIUM LEVEL 145 MMOL/L (136-145)
[2025-05-27 19:18] LABS: ERYTHROCYTE SEDIMENTATION RATE 12 mm/hr (0-20)
== END ==
LOC: M SFHCADAM 12:51
PROVIDERS: ATTEND Internal Medicine
DX: M45.0 Ankylosing spondylitis of multiple sites in spine (principal)

== ENCOUNTER 2025-06-16 13:25 | Outpatient (CLI) | payer BC ==
[~2025-06-16] VITALS: Ht 177.8 cm; Wt 111.8 kg
[~2025-06-16 13:25] MED LIST changes: +ALBUTEROL SULFATE 2.5 MG/0.5 ML INH CONCENTRATE NEB SOLN INH PRN; -ANDR1.62 TD; +EPINEPHrine INJ 1 MG/ML 1ML AMP IM PRN; -EZET10TA21 PO; +EZET10TA57 PO; +TEST75GE10 TD; +diphenhydrAMINE 50 MG/ML VIAL IV PRN
[2025-06-16 13:40] VITALS: BP 133/61; O2SAT 97
[2025-06-16] MEDS ORDERED: diphenhydrAMINE 50MG PO PRIOR TO INFUSION PO ONE (14:00)
[2025-06-16] MEDS ORDERED: ACETAMINOPHEN 650 MG ER TAB PO ONE (14:00)
[2025-06-16] MEDS: NS IV ONE (14:19)
[2025-06-16] MEDS: INFLIXIMAB IV ONE (14:19)
[2025-06-16 15:40] VITALS: BP 113/59; O2SAT 97
== END 2025-06-16 17:13 ==
LOC: M INFU 13:25
PROVIDERS: ATTEND Internal Medicine
DX: M45.0 Ankylosing spondylitis of multiple sites in spine (principal); Z91.048 Other nonmedicinal substance allergy status
CPT/HCPCS: 96413; J1745

== ENCOUNTER 2025-08-04 10:16 | Outpatient (CLI) | payer BC ==
[~2025-08-04] VITALS: Ht 177.8 cm; Wt 118.0 kg
[2025-08-04 09:30] VITALS: BP 127/59; O2SAT 96
[2025-08-04] MEDS: INFLIXIMAB IV ONE (11:08)
[2025-08-04] MEDS: NS IV ONE (11:08)
[2025-08-04] MEDS: diphenhydrAMINE 50MG PO PRIOR TO INFUSION PO ONE (11:10)
[2025-08-04] MEDS: ACETAMINOPHEN 650 MG ER TAB PO ONE (11:10)
[2025-08-04 12:06] VITALS: BP 112/60; O2SAT 96
== END 2025-08-04 12:07 | disposition home or self-care (01) ==
LOC: M INFU 10:16
PROVIDERS: ATTEND Internal Medicine
DX: M45.0 Ankylosing spondylitis of multiple sites in spine (principal); Z88.8 Allergy status to other drugs, medicaments and biological substances
CPT/HCPCS: 96413; J1745

== ENCOUNTER → 2025-09-14 | Outpatient (REF) | payer BC ==
[~2025-09-14] MED LIST changes: -ALBUTEROL SULFATE 2.5 MG/0.5 ML INH CONCENTRATE NEB SOLN INH PRN; -EPINEPHrine INJ 1 MG/ML 1ML AMP IM PRN; -diphenhydrAMINE 50 MG/ML VIAL IV PRN
[2025-09-14 13:35] LABS: C REACTIVE PROTEIN QUANTITATIV < 0.50 MG/DL (<1.0)
[2025-09-14 13:41] LABS: BASO # 0.0 10^3/uL (0.0-0.2); BASO % 0.3 % (0.0-1.0); EOS # 0.1 10^3/uL (0.0-0.5); EOS % 1.4 % (0.0-3.0); LYMPH # 2.3 10^3/uL (1.5-5.0); LYMPH % 36.8 % (24.0-44.0); MONO # 0.3 10^3/uL (0.0-0.8); MONO % 5.4 % (2.0-8.0); NEUTROPHILS # 3.5 10^3/uL (1.5-8.5); NEUTROPHILS % 55.8 % (36.0-66.0); PLATELET COUNT, AUTOMATED 182 10^3/uL (150-450)
[2025-09-14 13:41] LABS: ALT/SGPT 27 U/L (7.0-40); AST/SGOT 21 U/L (<34); CALCIUM LEVEL 8.6 MG/DL (8.3-10.6); CARBON DIOXIDE LEVEL 28 MMOL/L (20-31); CHLORIDE LEVEL 108 MMOL/L (98-107); CREATININE FOR GFR 1.06 MG/DL (0.70-1.30); GLOMERULAR FILTRATION RATE 78.9 (>49); POTASSIUM SERUM 4.7 MMOL/L (3.5-5.1); SODIUM LEVEL 144 MMOL/L (136-145)
== END ==
LOC: M SFHCADAM 09:20
PROVIDERS: ATTEND Internal Medicine
DX: M45.0 Ankylosing spondylitis of multiple sites in spine (principal)

== ENCOUNTER 2025-09-15 06:44 | Outpatient (CLI) | payer BC ==
[~2025-09-15] VITALS: Ht 177.8 cm; Wt 110.9 kg
[2025-09-15 06:50] VITALS: BP 133/67; O2SAT 99
[2025-09-15] MEDS ORDERED: ALBUTEROL SULFATE 2.5 MG/0.5 ML INH CONCENTRATE NEB SOLN INH PRN (07:01)
[2025-09-15] MEDS ORDERED: EPINEPHrine INJ 1 MG/ML 1ML AMP IM PRN (07:01)
[2025-09-15] MEDS ORDERED: diphenhydrAMINE 50 MG/ML VIAL IV PRN (07:01)
[2025-09-15] MEDS ORDERED: diphenhydrAMINE 50MG PO PRIOR TO INFUSION PO ONE (07:30)
[2025-09-15] MEDS ORDERED: ACETAMINOPHEN 650 MG ER TAB PO ONE (07:30)
[2025-09-15] MEDS: NS IV ONE (07:46)
[2025-09-15] MEDS: INFLIXIMAB IV ONE (07:46)
[2025-09-15 08:12] VITALS: BP 127/67; O2SAT 97
[2025-09-15 09:00] VITALS: BP 125/64; O2SAT 97
== END 2025-09-15 09:00 | disposition home or self-care (01) ==
LOC: M INFU 06:44
PROVIDERS: ATTEND Internal Medicine
DX: M45.0 Ankylosing spondylitis of multiple sites in spine (principal); Z91.09 Other allergy status, other than to drugs and biological substances
CPT/HCPCS: 96413; J1745